=== PATIENT | female | born 1990 | race African-American/Black ===

== ENCOUNTER 2018-06-25 14:53 | Emergency (ER) | payer SELFPAY ==
--- OUTSIDE RECORDS SUMMARY | 2018-06-25 15:14 | XMS REPORT ---
:1990 [facility] Address [address] [place]. [address] [place] [id number] Care Team Providers Name Role Phone Unavailable Unavailable Unavailable Problems This patient has no known problems. Allergies, Adverse Reactions, Alerts This patient has no known allergies or adverse reactions. Medications This patient has no known medications.
[2018-06-25 16:47] LABS: Urine Bacteria <20 /HPF (<20); Urine RBC <5 /HPF (NONE SEEN)
[2018-06-25 16:48] LABS: Urine Culture Reflex Order NOT NEEDED; Urine Mucus 1+ /HPF (NONE SEEN)
[2018-06-25 17:02] LABS: Absolute Monocytes 0.5 K/uL (0.1-1.3); Absolute Neutrophil 3.5 K/uL (1.8-8.0); Basophils % 0.3 % (0-1.3); Eosinophils % 0.9 % (0-4.4); Hematocrit 37.5 % (36.0-45.0); Lymphocytes % 33.2 % (15.3-44.8); MPV 7.9 fL (7.6-11.3); Monocytes % 7.6 % (3.3-12.3)
[2018-06-25 17:23] LABS: Urine Blood TRACE (NEG); Urine Glucose NEGATIVE (NEG); Urine Protein 1+ (NEG); Urine Specific Gravity 1.025 (1.005-1.030)
[2018-06-25 17:34] LABS: BUN Blood Urea Nitrogen 9 mg/dL (7-18); Bicarbonate 24 mmol/L (21-32); Glucose Level 90 mg/dL (74-106); HCG, Quantitative 60419 mIU/mL (1-3); Potassium 3.3 mmol/L (3.5-5.1); Sodium Level 135 mmol/L (136-145)
--- NOTE | 2018-06-25 17:39 | ER ---
Nurse's Notes [facility] Name: Stanislaw Varner Age: 28 yrs Sex: Female : 1990 Arrival Date: 06/25/2018 Time: 14:57 Bed 26 Private MD: HAYES EAST Diagnosis: state;Nausea and vomiting;Diarrhea, unspecified Presentation: 06/25 15:13 Presenting complaint: Patient states: since yesterday i am having stomach pains, tw2 headache, i feel nauseated, it comes and goes , +n/v/d, i am having some bleeding but i shouldn't be on my period. Transition of care: patient was not received from another setting of care. Onset of symptoms was June 25, 2018. Risk Assessment: Do you want to hurt yourself or someone else? Patient reports no desire to harm self or others. Initial Sepsis Screen: Does the patient meet any 2 criteria? No. Patient's initial sepsis screen is negative. Does the patient have a suspected source of infection? No. Patient's initial sepsis screen is negative. Care prior to arrival: None. 15:13 Method Of Arrival: Ambulatory tw2 15:13 Acuity: MITCH 3 tw2 Triage Assessment: 15:15 General: Appears ill, Behavior is calm, cooperative, appropriate for age. Pain: tw2 Complains of pain in abdomen. GI: Reports lower abdominal pain, upper abdominal pain, diarrhea, nausea, vomiting. 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 - Social history:: Smoking status: . - Ebola Screening: : Patient negative for fever greater than or equal to 101.5 degrees Fahrenheit, and additional compatible Ebola Virus Disease symptoms. Screenin:38 Abuse screen: Denies threats or abuse. Denies injuries from another. Nutritional rv screening: No deficits noted. Tuberculosis screening: No symptoms or risk factors identified. Fall Risk None identified. Assessment: 15:37 General: Appears in no apparent distress. uncomfortable, Behavior is calm, cooperative. rv Pain: Complains of pain in abdomen. Neuro: Level of Consciousness is awake, alert, obeys commands, Oriented to person, place, time, situation. Cardiovascular: Capillary refill < 3 seconds. Respiratory: Airway is patent. GI: Bowel sounds present X 4 quads. Abd is soft and non tender X 4 quads. : No signs and/or symptoms were reported regarding the genitourinary system. EENT: No signs and/or symptoms were reported regarding the EENT system. Derm: Skin is intact. Musculoskeletal: No signs and/or symptoms reported regarding the musculoskeletal system. Vital Signs: 15:16 BP 123 / 76; Pulse 91; Resp 17; Temp 97.5(TE); Pulse Ox 100% on R/A; Weight 89.81 kg tw2 (R); Height 4 ft. 11 in. (149.86 cm) (R); Pain 8/10; 17:44 BP 114 / 62 RA Supine; Pulse 74; Resp 17 S; Pulse Ox 100% on R/A; rv 18:16 BP 105 / 70 RA; Pulse 76; Resp 16 S; Pulse Ox 100% on R/A; rv 15:16 Body Mass Index 39.99 (89.81 kg, 149.86 cm) tw2 ED Course: 14:57 Patient arrived in ED. mr 14:58 HAYES EAST is Private Physician. mr 15:14 Triage completed. tw2 15:15 Arm band placed on. tw2 15:28 Jose Juan Santillan, RN is Primary Nurse. rv 15:38 Patient has correct armband on for positive identification. Bed in low position. Call rv light in reach. Side rails up X 1. Pulse ox on. NIBP on. 15:45 Ashley Haywood FNP-C is PHCP. snw 15:45 Salvador Tran MD is Attending Physician. snw 16:10 No provider procedures requiring assistance completed. Inserted saline lock: 22 gauge rv in left forearm, using aseptic technique. Blood collected. 16:52 US Transvaginal Ob In Process Unspecified. EDMS 17:46 IV discontinued, intact, bleeding controlled, No redness/swelling at site. Pressure rv dressing applied. Administered Medications: No medications were administered Outcome: 17:39 Discharge ordered by . snw 17:46 Discharged to home ambulatory. rv 17:46 Condition: good 17:46 Discharge instructions given to patient, Instructed on discharge instructions, follow up and referral plans. Demonstrated understanding of instructions, follow-up care. 18:17 Patient left the ED. rv Signatures: Dispatcher [employer] EDMS Ashley Haywood, CPAO-C SECURITY MANAGER-Csnw Pam Micehlle mr Rayna Scruggs, RN RN tw2 Jose Juan Santillan RN RN rv
--- NOTE | 2018-06-25 17:39 | EDPHYS ---
Physician Documentation [facility] Name: Stanislaw Varner Age: 28 yrs Sex: Female : 1990 Arrival Date: 06/25/2018 Time: 14:57 Bed 26 Private MD: HAYES EAST ED Physician Salvador Tran HPI: 06/25 17:02 This 28 yrs old Black Female presents to ER via Ambulatory with complaints of Abdominal snw Pain, Back Pain, Nausea, Diarrhea. 17:02 The patient presents with abdominal pain that is diffuse. Onset: The symptoms/episode snw began/occurred suddenly, 3 day(s) ago. The symptoms do not radiate. Associated signs and symptoms: Pertinent positives: nausea and vomiting, diarrhea. The symptoms are described as crampy. Severity of pain: At its worst the pain was very mild. It is unknown whether or not the patient has had similar symptoms in the past. It is unknown whether or not the patient has recently seen a physician. pt with 8mo old child at home (preformer impregnated fabrics is Dr. Glover). Pt notified of and plan of care.. 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 - Social history:: Smoking status: . - Ebola Screening: : Patient negative for fever greater than or equal to 101.5 degrees Fahrenheit, and additional compatible Ebola Virus Disease symptoms. ROS: 17:01 Constitutional: Negative for fever, chills, and weight loss, Eyes: Negative for injury, snw pain, redness, and discharge, ENT: Negative for injury, pain, and discharge, Neck: Negative for injury, pain, and swelling, Cardiovascular: Negative for chest pain, palpitations, and edema, Respiratory: Negative for shortness of breath, cough, wheezing, and pleuritic chest pain, : Negative for injury, bleeding, discharge, and swelling, MS/Extremity: Negative for injury and deformity, Skin: Negative for injury, rash, and discoloration, Neuro: Negative for headache, weakness, numbness, tingling, and seizure. 17:01 Abdomen/GI: Positive for nausea, vomiting, and diarrhea. 17:01 Back: Positive for pain at rest, of the low back area. Exam: 17:01 Constitutional: This is a well developed, well nourished patient who is awake, alert, snw and in no acute distress. Head/Face: Normocephalic, atraumatic. Eyes: Pupils equal round and reactive to light, extra-ocular motions intact. Lids and lashes normal. Conjunctiva and sclera are non-icteric and not injected. Cornea within normal limits. Periorbital areas with no swelling, redness, or edema. ENT: Nares patent. No nasal discharge, no septal abnormalities noted. Tympanic membranes are normal and external auditory canals are clear. Oropharynx with no redness, swelling, or masses, exudates, or evidence of obstruction, uvula midline. Mucous membranes moist. Neck: Trachea midline, no thyromegaly or masses palpated, and no cervical lymphadenopathy. Supple, full range of motion without nuchal rigidity, or vertebral point tenderness. No Meningismus. Chest/axilla: Normal chest wall appearance and motion. Nontender with no deformity. No lesions are appreciated. Cardiovascular: Regular rate and rhythm with a normal S1 and S2. No gallops, murmurs, or rubs. Normal PMI, no JVD. No pulse deficits. Respiratory: Lungs have equal breath sounds bilaterally, clear to auscultation and percussion. No rales, rhonchi or wheezes noted. No increased work of breathing, no retractions or nasal flaring. 17:01 Back: No spinal tenderness. No costovertebral tenderness. Full range of motion. Skin: Warm, dry with normal turgor. Normal color with no rashes, no lesions, and no evidence of cellulitis. MS/ Extremity: Pulses equal, no cyanosis. Neurovascular intact. Full, normal range of motion. Neuro: Awake and alert, GCS 15, oriented to person, place, time, and situation. Cranial nerves II-XII grossly intact. Motor strength 5/5 in all extremities. Sensory grossly intact. Cerebellar exam normal. Normal gait. 17:01 Abdomen/GI: Inspection: abdomen appears normal, Bowel sounds: normal, Palpation: abdomen is soft and non-tender. Vital Signs: 15:16 BP 123 / 76; Pulse 91; Resp 17; Temp 97.5(TE); Pulse Ox 100% on R/A; Weight 89.81 kg tw2 (R); Height 4 ft. 11 in. (149.86 cm) (R); Pain 8/10; 17:44 BP 114 / 62 RA Supine; Pulse 74; Resp 17 S; Pulse Ox 100% on R/A; rv 18:16 BP 105 / 70 RA; Pulse 76; Resp 16 S; Pulse Ox 100% on R/A; rv 15:16 Body Mass Index 39.99 (89.81 kg, 149.86 cm) tw2 MDM: 15:49 Patient medically screened. snw 17:39 Data reviewed: vital signs, nurses notes. Data interpreted: Pulse oximetry: on room air snw is 100 %. Interpretation: normal. Counseling: I had a detailed discussion with the patient and/or guardian regarding: the historical points, exam findings, and any diagnostic results supporting the discharge/admit diagnosis, lab results, radiology results, the need for outpatient follow up, to return to the emergency department if symptoms worsen or persist or if there are any questions or concerns that arise at home. Special discussion: Based on the patient's Hx, exam, and Dx evaluation, there is no indication for emergent surgery or inpatient Tx. It is understood by the patient/guardian that if the Sx's persist or worsen they need to return immediately for re-evaluation. Based on the history and exam findings, there is no indication for further emergent testing or inpatient evaluation. I discussed with the patient/guardian the need to see the OB Gyne specialist for further evaluation of the symptoms. 06/25 15:46 Order name: Urine Culture [facility] 06/25 15:46 Order name: Urine Microscopic Only; Complete Time: 16:51 snw 06/25 16:12 Order name: Quantitative Hcg; Complete Time: 17:34 snw 06/25 16:12 Order name: Abo/rh Typing; Complete Time: 17:25 snw 06/25 16:12 Order name: Basic Metabolic Panel; Complete Time: 17:34 snw 06/25 16:12 Order name: CBC with Diff; Complete Time: 17:13 snw 06/25 15:46 Order name: Urine Test (obtain specimen); Complete Time: 15:55 snw 06/25 15:46 Order name: Urine Dipstick-Ancillary (obtain specimen); Complete Time: 15:55 snw 06/25 16:12 Order name: IV Saline Lock; Complete Time: 16:46 snw 06/25 16:12 Order name: Labs collected and sent; Complete Time: 16:46 snw 06/25 16:12 Order name: NPO; Complete Time: 16:14 snw 06/25 16:13 Order name: US Transvaginal Ob snw 06/25 16:31 Order name: Urine Dipstick--Ancillary (enter results); Complete Time: 17:25 bd 06/25 16:31 Order name: Urine --Ancillary (enter results); Complete Time: 17:25 bd Administered Medications: No medications were administered Disposition: 06/26 06:45 Co-signature as Attending Physician, Salvador Tran MD I agree with the assessment and kdr plan of care. Disposition: 06/25/18 17:39 Discharged to Home. Impression: state, Nausea and vomiting, Diarrhea, unspecified. - Condition is Stable. - Discharge Instructions: Food Choices to Help Relieve Diarrhea, Adult, Diarrhea, Adult, Nausea and Vomiting, Adult, First Trimester of , Rehydration, Adult. - Work release form, Medication Reconciliation Form, Thank You Letter, Antibiotic Education, Prescription Opioid Use form. - Follow up: Private Physician; When: 1 week; Reason: Recheck today's complaints, Continuance of care, Re-evaluation by your physician. Follow up: Emergency Department; When: As needed; Reason: Worsening of condition. Signatures: Dispatcher [facility] Salvador Tran MD MD [facility] Ashley Haywood, PATTERNMAKER PLASTICS-C PATTERNMAKER PLASTICS-Csnw Rayna Scruggs, RN RN tw2 Jose Juan Santillan, RN RN rv Corrections: (The following items were deleted from the chart) 06/25 16:17 16:13 Transvaginal Ob+US.RAD.BRZ ordered. [facility] 18:17 17:39 06/25/2018 17:39 Discharged to Home. Impression: state; Nausea and rv vomiting; Diarrhea, unspecified. Condition is Stable. Forms are Medication Reconciliation Form, Thank You Letter, Antibiotic Education, Prescription Opioid Use. Follow up: Private Physician; When: 1 week; Reason: Recheck today's complaints, Continuance of care, Re-evaluation by your physician. Follow up: Emergency Department; When: As needed; Reason: Worsening of condition. snw
[2018-06-25 18:28] VITALS: TEMP 97.5; O2SAT 100
[2018-06-25 18:31] VITALS: BP 105/70
--- NOTE | 2018-06-25 18:58 | RAD REPORT ---
EXAM DESCRIPTION: US - Transvaginal OB - 06/25/2018 4:53 pm CLINICAL HISTORY: Abdominal pain, abdominal cramping, COMPARISON: None. FINDINGS: Normal shaped intrauterine gestational sac is identified. Yolk sac and pole are iden tifiable. Cardiac activity seen at a rate of 161 BPM. [place]-rump length corresponds to 7 week 1 day a ge. Calculated WILLIE is 02/10/2019. No uterine abnormality seen. Small subchorionic hemorrhage is present not regarded as significant at this small size. A 2.2 centimeter right ovarian cyst is present. No suspicious bilateral ovarian or adnexal finding. N o blood or fluid in the cul de sac. IMPRESSION: Single 7 week 1 day IUP. WILLIE is 02/10/2019. Heart rate is 161 BPM.
== END 2018-06-25 18:17 | disposition home or self-care (01) ==
LOC: ER 14:53
DX: O21.9 Vomiting of pregnancy, unspecified (principal); O26.891 Other specified pregnancy related conditions, first trimester; R19.7 Diarrhea, unspecified; Z3A.01 Less than 8 weeks gestation of pregnancy
CPT/HCPCS: 36415; 76817; 80048; 81003; 81015; 81025; 84702; 85025; 86900; 86901; 87086; 87088; 99284

== ENCOUNTER 2018-12-11 16:22 | Emergency (ER) | payer SELFPAY ==
--- NOTE | 2018-12-11 17:42 | ER ---
Nurse's Notes [facility] Name: Stanislaw Varner Age: 28 yrs Sex: Female : 1990 Arrival Date: 12/11/2018 Time: 16:23 Bed External Waiting Private MD: Diagnosis: Encounter for screening, unspecified Presentation: 12/11 16:41 Presenting complaint: Patient states: left lower toothache X 1 week, left jaw swelling iw today. Transition of care: patient was not received from another setting of care. Onset of symptoms was December 04, 2018. Risk Assessment: Do you want to hurt yourself or someone else? Patient reports no desire to harm self or others. Initial Sepsis Screen: Does the patient meet any 2 criteria? No. Patient's initial sepsis screen is negative. Does the patient have a suspected source of infection? No. Patient's initial sepsis screen is negative. Care prior to arrival: None. 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 - Social history:: Smoking status: Patient/guardian denies using tobacco. - Ebola Screening: : Patient negative for fever greater than or equal to 101.5 degrees Fahrenheit, and additional compatible Ebola Virus Disease symptoms Patient denies exposure to infectious person Patient denies travel to an Ebola-affected area in the 21 days before illness onset No symptoms or risks identified at this time. Screenin:45 Abuse screen: Denies threats or abuse. Denies injuries from another. Nutritional ph screening: No deficits noted. Tuberculosis screening: No symptoms or risk factors identified. Fall Risk None identified. Assessment: 16:45 General: Appears in no apparent distress. Behavior is calm, cooperative, appropriate ph for age. Pain: Complains of pain in mouth. Neuro: Level of Consciousness is awake, alert, obeys commands, Oriented to person, place, time, situation. Cardiovascular: Capillary refill < 3 seconds in bilateral fingers Patient's skin is warm and dry. Respiratory: Airway is patent Respiratory effort is even, unlabored, Respiratory pattern is regular, symmetrical. EENT: Derm: Skin is intact, Skin is pink, warm \T\ dry. Vital Signs: 16:43 BP 128 / 89; Pulse 88; Resp 16 S; Pulse Ox 100% on R/A; Pain 10/10; iw 16:43 Temp 97.7; ED Course: 16:23 Patient arrived in ED. as 16:35 Rohith Lion MD is Attending Physician. gs 16:36 Andressa Dorsey RN is Primary Nurse. ph 16:43 Triage completed. iw 16:43 Arm band placed on. iw 16:55 Patient has correct armband on for positive identification. Call light in reach. ph 18:30 No provider procedures requiring assistance completed. Patient did not have IV access ph during this emergency room visit. Administered Medications: No medications were administered Outcome: 17:41 Discharge ordered by . gs 18:33 Patient left the ED. ph 18:33 Medical screen evaluation completed per provider. Patient declined treatment. ph 18:33 Condition: good ph Signatures: Bautista Tapia, RN RN Linda Burns Irene, EMETERIO RN Andressa Dorsey RN RN Rohith Lion MD MD
--- NOTE | 2018-12-11 17:42 | EDPHYS ---
Physician Documentation [facility] Name: Stanislaw Varner Age: 28 yrs Sex: Female : 1990 Arrival Date: 12/11/2018 Time: 16:23 Bed External Waiting Private MD: ED Physician Rohith Lion HPI: 12/11 16:57 This 28 yrs old Black Female presents to ER via Ambulatory with complaints of Toothache.gs 17:39 The patient presents with bleeding, pain. The problem is located in the lower left gs second molar and lower left first molar. Onset: The symptoms/episode began/occurred 1 week(s) ago. Duration: The symptoms are continuous. Modifying factors: the symptoms are aggravated by chewing. Associated signs and symptoms: Pertinent negatives: swelling, mandibular. Severity of symptoms: At their worst the symptoms were moderate, in the emergency department the symptoms are unchanged. The patient has experienced similar episodes in the past, a few times. 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 - Social history:: Smoking status: Patient/guardian denies using tobacco. - Ebola Screening: : Patient negative for fever greater than or equal to 101.5 degrees Fahrenheit, and additional compatible Ebola Virus Disease symptoms Patient denies exposure to infectious person Patient denies travel to an Ebola-affected area in the 21 days before illness onset No symptoms or risks identified at this time. ROS: 17:39 All other systems are negative. gs Exam: 17:39 Head/Face: Normocephalic, atraumatic. Eyes: Pupils equal round and reactive to light, gs extra-ocular motions intact. Lids and lashes normal. Conjunctiva and sclera are non-icteric and not injected. Cornea within normal limits. Periorbital areas with no swelling, redness, or edema. Neck: Trachea midline, no thyromegaly or masses palpated, and no cervical lymphadenopathy. Supple, full range of motion without nuchal rigidity, or vertebral point tenderness. No Meningismus. Chest/axilla: Normal chest wall appearance and motion. Nontender with no deformity. No lesions are appreciated. Cardiovascular: Regular rate and rhythm with a normal S1 and S2. No gallops, murmurs, or rubs. Normal PMI, no JVD. No pulse deficits. Respiratory: Lungs have equal breath sounds bilaterally, clear to auscultation and percussion. No rales, rhonchi or wheezes noted. No increased work of breathing, no retractions or nasal flaring. Abdomen/GI: Soft, non-tender, with normal bowel sounds. No distension or tympany. No guarding or rebound. No evidence of tenderness throughout. Back: No spinal tenderness. No costovertebral tenderness. Full range of motion. Skin: Warm, dry with normal turgor. Normal color with no rashes, no lesions, and no evidence of cellulitis. MS/ Extremity: Pulses equal, no cyanosis. Neurovascular intact. Full, normal range of motion. Neuro: Awake and alert, GCS 15, oriented to person, place, time, and situation. Cranial nerves II-XII grossly intact. Motor strength 5/5 in all extremities. Sensory grossly intact. Cerebellar exam normal. Normal gait. 17:39 Constitutional: The patient appears alert, awake. 17:39 ENT: Dental exam: dental caries, that is moderate, specifically in the lower left second molar (#18) and lower left first molar (#19), pain. Vital Signs: 16:43 BP 128 / 89; Pulse 88; Resp 16 S; Pulse Ox 100% on R/A; Pain 10/10; iw 16:43 Temp 97.7; sg MDM: 17:04 Patient medically screened. 17:39 Differential diagnosis: dental caries, gingivitis, dental abscess. Data reviewed: vital gs signs, nurses notes. ED course: NO EVIDENCE OF ABSCESS. Administered Medications: No medications were administered Disposition: 12/11/18 17:41 Discharged to Home. Impression: Encounter for screening, unspecified. - Condition is Stable. - Medication Reconciliation Form, Thank You Letter, Antibiotic Education, Prescription Opioid Use form. - Follow up: Private Physician; When: 1 - 2 days; Reason: Re-evaluation by your physician. Signatures: Andreia Jensen RN RN iw Andressa Dorsey RN RN ph LionRohith MD MD Corrections: (The following items were deleted from the chart) 18:33 17:41 12/11/2018 17:41 Discharged to Home. Impression: Encounter for screening, ph unspecified. Condition is Stable. Forms are Medication Reconciliation Form, Thank You Letter, Antibiotic Education, Prescription Opioid Use. Follow up: Private Physician; When: 1 - 2 days; Reason: Re-evaluation by your physician. gs
[2018-12-11 19:23] VITALS: BP 128/89; TEMP 97.7; O2SAT 100
== END 2018-12-11 18:33 | disposition home or self-care (01) ==
LOC: ER 16:22
DX: K08.89 Other specified disorders of teeth and supporting structures (principal); Z13.9 Encounter for screening, unspecified
CPT/HCPCS: 99281

== ENCOUNTER 2019-01-27 20:01 | Emergency (ER) | payer SELFPAY ==
--- OUTSIDE RECORDS SUMMARY | 2019-01-27 20:03 | XMS REPORT ---
:1990 [facility] Address [address] [place] [address] Care Team Providers Name Role Phone Unavailable Unavailable Unavailable Problems This patient has no known problems. Allergies, Adverse Reactions, Alerts This patient has no known allergies or adverse reactions. Medications This patient has no known medications.
--- NOTE | 2019-01-27 21:55 | EDPHYS ---
Physician Documentation [facility] Name: Stanislaw Varner Age: 28 yrs Sex: Female : 1990 Arrival Date: 01/27/2019 Time: 20:07 Bed 25 Private MD: ED Physician Salvador Tran HPI: 01/27 22:19 This 28 yrs old Black Female presents to ER via Ambulatory with complaints of Back kdr Pain, Breathing Difficulty. 22:19 The patient presents with pain that is acute, with no known mechanism of injury. The kdr symptoms are located in the T5, T6 and T7. Onset: The symptoms/episode began/occurred acutely, yesterday. Location: Anterior chest wall - mid sternal. Associated signs and symptoms: The patient has no apparent associated signs or symptoms. 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 Modifying factors: The patient symptoms are alleviated by nothing, the patient symptoms are aggravated by any movement. Severity of symptoms: At their worst the symptoms were mild, just prior to arrival, in the emergency department the symptoms are unchanged. The patient has not experienced similar symptoms in the past. The patient has not recently seen a physician. 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 - Social history:: Smoking status: Patient uses tobacco products, denies chronic smoking, but will smoke occasionally. - Ebola Screening: : No symptoms or risks identified at this time. ROS: 22:19 Constitutional: Negative for fever, chills, and weight loss, Eyes: Negative for injury, kdr pain, redness, and discharge, Neck: Negative for injury, pain, and swelling, Cardiovascular: Negative for chest pain, palpitations, and edema, Respiratory: Negative for shortness of breath, cough, wheezing, and pleuritic chest pain, Abdomen/GI: Negative for abdominal pain, nausea, vomiting, diarrhea, and constipation, : Negative for injury, bleeding, discharge, and swelling, MS/Extremity: Negative for injury and deformity, Skin: Negative for injury, rash, and discoloration, Neuro: Negative for headache, weakness, numbness, tingling, and seizure activity. Psych: Negative for depression, anxiety, suicide ideation, homicidal ideation, and hallucinations, Allergy/Immunology: Negative for hives, rash, and allergies, Endocrine: Negative for neck swelling, polydipsia, polyuria, polyphagia, and marked weight changes, Hematologic/Lymphatic: Negative for swollen nodes, abnormal bleeding, and unusual bruising. 22:19 Back: Positive for pain with movement, of the thoracic area. Exam: 22:19 Constitutional: This is a well developed, well nourished patient who is awake, alert, kdr and in no acute distress. Head/Face: Normocephalic, atraumatic. Eyes: Pupils equal round and reactive to light, extra-ocular motions intact. Lids and lashes normal. Conjunctiva and sclera are non-icteric and not injected. Cornea within normal limits. Periorbital areas with no swelling, redness, or edema. Neck: Trachea midline, no thyromegaly or masses palpated, and no cervical lymphadenopathy. Supple, full range of motion without nuchal rigidity, or vertebral point tenderness. No Meningismus. Chest/axilla: Normal chest wall appearance and motion. Nontender with no deformity. No lesions are appreciated. Cardiovascular: Regular rate and rhythm with a normal S1 and S2. No gallops, murmurs, or rubs. Normal PMI, no JVD. No pulse deficits. Respiratory: Lungs have equal breath sounds bilaterally, clear to auscultation and percussion. No rales, rhonchi or wheezes noted. No increased work of breathing, no retractions or nasal flaring. Abdomen/GI: Soft, non-tender, with normal bowel sounds. No distension or tympany. No guarding or rebound. No evidence of tenderness throughout. Skin: Warm, dry with normal turgor. Normal color with no rashes, no lesions, and no evidence of cellulitis. MS/ Extremity: Pulses equal, no cyanosis. Neurovascular intact. Full, normal range of motion. Neuro: Awake and alert, GCS 15, oriented to person, place, time, and situation. Cranial nerves II-XII grossly intact. Motor strength 5/5 in all extremities. Sensory grossly intact. Cerebellar exam normal. Normal gait. Psych: Awake, alert, with orientation to person, place and time. Behavior, mood, and affect are within normal limits. 22:19 Back: pain, that is mild, of the thoracic area, ROM is painful, with all movement, normal spinal alignment noted, CVA tenderness, is absent, muscle spasm, is not present, T 7 - 9. Vital Signs: 20:44 BP 115 / 65; Pulse 91; Resp 16; Temp 97; Pulse Ox 100% ; rv 21:15 BP 114 / 50; Pulse 66; Resp 17 S; Pulse Ox 97% on R/A; cc3 22:00 BP 124 / 63; Pulse 82; Resp 17 S; Pulse Ox 100% on R/A; Pain 2/10; cc3 MDM: 21:54 Patient medically screened. kdr 22:19 Data reviewed: vital signs, nurses notes, lab test result(s), radiologic studies. kdr Counseling: I had a detailed discussion with the patient and/or guardian regarding: the historical points, exam findings, and any diagnostic results supporting the discharge/admit diagnosis, the need for outpatient follow up. Administered Medications: 22:00 Drug: Ibuprofen 800 mg Route: PO; mg2 22:03 Follow up: Response: No adverse reaction cc3 22:01 Drug: predniSONE 40 mg Route: PO; mg2 22:03 Follow up: Response: No adverse reaction cc3 22:02 Drug: traMADol 50 mg Route: PO; mg2 22:03 Follow up: Response: No adverse reaction; Pain is decreased; RASS: Alert and Calm (0) cc3 Disposition: 01/27/19 21:54 Discharged to Home. Impression: Pain in thoracic spine. - Condition is Stable. - Discharge Instructions: Back Pain, Adult, Musculoskeletal Pain, Thoracic Strain, [id number]. - Prescriptions for Ibuprofen 800 mg Oral Tablet - take 1 tablet by ORAL route every 8 hours As needed take with food; 15 tablet. Medrol (Davide) 4 mg Oral Tablets, Dose Pack - take 1 tablet by ORAL route as directed - follow package instructions; 1 packet. Pepcid 20 mg Oral Tablet - take 1 tablet by ORAL route once daily; 20 tablet. Tramadol 50 mg Oral Tablet - take 1 tablet by ORAL route every 8 hours as needed; 12 tablet. - Medication Reconciliation Form, Thank You Letter, Prescription Opioid Use, Work release form form. - Follow up: Private Physician; When: 2 - 3 days; Reason: If symptoms return, Further diagnostic work-up, Recheck today's complaints, Continuance of care, Re-evaluation by your physician. - Problem is new. - Symptoms are unchanged. Signatures: Salvador Tran MD MD kdr Missael Garcia RN RN mg2 Jose Juan Santillan RN RN rv Kellie Jay cc3 Corrections: (The following items were deleted from the chart) 22:08 21:54 01/27/2019 21:54 Discharged to Home. Impression: Pain in thoracic spine. cc3 Condition is Stable. Forms are Medication Reconciliation Form, Thank You Letter, Antibiotic Education, Prescription Opioid Use. Follow up: Private Physician; When: 2 - 3 days; Reason: If symptoms return, Further diagnostic work-up, Recheck today's complaints, Continuance of care, Re-evaluation by your physician. Problem is new. Symptoms are unchanged. kdr
--- NOTE | 2019-01-27 21:55 | ER ---
Nurse's Notes [facility] Name: Stanislaw Varner Age: 28 yrs Sex: Female : 1990 Arrival Date: 01/27/2019 Time: 20:07 Bed 25 Private MD: Diagnosis: Pain in thoracic spine Presentation: 01/27 20:41 Presenting complaint: Patient states: YESTERDAY STARTED HAVING BACK PAIN GOING TO THE CHEST. AND HAVE TROUBLE TAKING DEEP BREATHS. Transition of care: patient was not received from another setting of care. Onset of symptoms was January 26, 2019 at 08:00. Risk Assessment: Do you want to hurt yourself or someone else? Patient reports no desire to harm self or others. Initial Sepsis Screen: Does the patient meet any 2 criteria? No. Patient's initial sepsis screen is negative. Does the patient have a suspected source of infection? No. Patient's initial sepsis screen is negative. Care prior to arrival: None. 20:41 Method Of Arrival: Ambulatory 20:41 Acuity: MITCH 3 rv Triage Assessment: 21:00 General: Appears in no apparent distress. uncomfortable, Behavior is calm, cooperative, cc3 appropriate for age. Musculoskeletal: Circulation, motion, and sensation intact. Range of motion: intact in all extremities. 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 - Social history:: Smoking status: Patient uses tobacco products, denies chronic smoking, but will smoke occasionally. - Ebola Screening: : No symptoms or risks identified at this time. Screenin:00 Abuse screen: Denies threats or abuse. Denies injuries from another. Nutritional cc3 screening: No deficits noted. Tuberculosis screening: No symptoms or risk factors identified. Fall Risk Ambulatory Aid- None/Bed Rest/Nurse Assist (0 pts). Gait- Normal/Bed Rest/Wheelchair (0 pts) Mental Status- Oriented to own ability (0 pts). Assessment: 21:00 General: Appears in no apparent distress. comfortable, Behavior is calm, cooperative, cc3 appropriate for age. Pain: Complains of pain in thoracic area, back Quality of pain is described as aching, Pain began 1 day ago. Neuro: Level of Consciousness is awake, alert, obeys commands, Oriented to person, place, time, situation, Appropriate for age. Cardiovascular: Denies chest pain, Heart tones S1 S2 present Capillary refill < 3 seconds in bilateral fingers Patient's skin is warm and dry. Respiratory: Airway is patent Respiratory effort is even, unlabored, Respiratory pattern is regular, symmetrical, Breath sounds are clear bilaterally. GI: Abdomen is round non-distended, Bowel sounds present X 4 quads. Abd is soft and non tender X 4 quads. : No signs and/or symptoms were reported regarding the genitourinary system. EENT: No signs and/or symptoms were reported regarding the EENT system. Derm: Skin is intact, is healthy with good turgor, Skin is normal, black. Musculoskeletal: Circulation, motion, and sensation intact. Range of motion: intact in all extremities. 22:00 Reassessment: Patient appears in no apparent distress at this time. Patient and/or cc3 family updated on plan of care and expected duration. Pain level reassessed. Patient is alert, oriented x 3, equal unlabored respirations, skin warm/dry/pink. Dr. Tran discharged the patient home with prescriptions given. No IV cannula in situ. Patient left ER vitally stable and ambulatory. No valuables left in the patient's room. Patient states feeling better. Patient states symptoms have improved. Vital Signs: 20:44 BP 115 / 65; Pulse 91; Resp 16; Temp 97; Pulse Ox 100% ; rv 21:15 BP 114 / 50; Pulse 66; Resp 17 S; Pulse Ox 97% on R/A; cc3 22:00 BP 124 / 63; Pulse 82; Resp 17 S; Pulse Ox 100% on R/A; Pain 2/10; cc3 ED Course: 20:07 Patient arrived in ED. cf2 20:37 Salvador Tran MD is Attending Physician. kdr 20:44 Triage completed. rv 21:00 Patient has correct armband on for positive identification. Placed in gown. Bed in low cc3 position. Call light in reach. Side rails up X2. pvc monitor on. Pulse ox on. NIBP on. 21:00 Arm band placed on right wrist. Patient notified of wait time. cc3 21:04 Kellie Jay is Primary Nurse. cc3 22:00 No provider procedures requiring assistance completed. Patient did not have IV access cc3 during this emergency room visit. Administered Medications: 22:00 Drug: Ibuprofen 800 mg Route: PO; mg2 22:03 Follow up: Response: No adverse reaction cc3 22:01 Drug: predniSONE 40 mg Route: PO; mg2 22:03 Follow up: Response: No adverse reaction cc3 22:02 Drug: traMADol 50 mg Route: PO; mg2 22:03 Follow up: Response: No adverse reaction; Pain is decreased; RASS: Alert and Calm (0) cc3 Outcome: 21:54 Discharge ordered by . kdr 22:00 Discharged to home ambulatory. cc3 22:00 Condition: stable 22:00 Discharge instructions given to patient, Instructed on discharge instructions, follow up and referral plans. medication usage, Demonstrated understanding of instructions, follow-up care, medications, Prescriptions given X 4. 22:08 Patient left the ED. cc3 Signatures: Salvador Tran MD MD [facility] Missael Garcia, RN RN [facility] Jose Juan Santillan, RN RN rv Kellie Jay cc3 Maryanne Norwood cf2 Corrections: (The following items were deleted from the chart) 20:44 20:41 Acuity: MITCH 4 rv rv
[2019-01-27] MEDS ORDERED: predniSONE 20 MG TAB ONE (21:57)
[2019-01-27] MEDS ORDERED: IBUPROFEN 400 MG TAB ONE (21:57)
[2019-01-27] MEDS ORDERED: TRAMADOL HCL 50 MG TAB ONE (21:57)
[2019-01-27 22:29] VITALS: BP 115/65; TEMP 97; O2SAT 100
== END 2019-01-27 22:08 | disposition home or self-care (01) ==
LOC: ER 20:01
DX: M54.6 Pain in thoracic spine (principal); Z72.0 Tobacco use
CPT/HCPCS: 99284; J7512

== ENCOUNTER 2019-08-27 01:08 | Emergency (ER) | payer SELFPAY ==
--- OUTSIDE RECORDS SUMMARY | 2019-08-27 01:10 | XMS REPORT | Continuity of Care Document ---
:1990 Author Organization [facility] t Address [address] [place] [address] Care Team Providers Name Role Phone Unavailable Unavailable Unavailable Problems This patient has no known problems. Allergies, Adverse Reactions, Alerts This patient has no known allergies or adverse reactions. Medications This patient has no known medications. Procedures This patient has no known procedures. Results This patient has no known results.
[2019-08-27 01:48] LABS: Specific Gravity >= 1.030 (1.005-1.030); Urine Appearance CLEAR; Urine Bilirubin NEGATIVE (NEG); Urine Blood 1+ (NEG); Urine Color YELLOW; Urine Glucose NEGATIVE (NEG); Urine Protein NEGATIVE (NEG); Urine Specific Gravity >=1.030 (1.005-1.030)
[2019-08-27 01:56] LABS: Urine Bacteria <20 /HPF (<20); Urine Culture Reflex Order NOT NEEDED; Urine Mucus 1+ /HPF (NONE SEEN); Urine RBC <5 /HPF (NONE SEEN)
[2019-08-27 02:07] LABS: Absolute Lymphocytes (CBC) 3.6 K/uL (0.7-4.9); Basophils % 1.3 % (0-1.3); Hematocrit 35.8 % (36.0-45.0); Lymphocytes % 38.5 % (15.3-44.8); MPV 8.1 fL (7.6-11.3); RBC Red Blood Cell Count 4.68 M/uL (3.86-4.86)
[2019-08-27 02:11] LABS: Protime INR 0.93
--- NOTE | 2019-08-27 02:33 | ER ---
Nurse's Notes [facility] Name: Stanislaw Varner Age: 29 yrs Sex: Female : 1990 Arrival Date: 08/27/2019 Time: 01:13 Bed 13 Private MD: HAYES EAST Diagnosis: Abnormal uterine and vaginal bleeding, unspecified;Complete or unspecified spontaneous without complication Presentation: 08/26 01:20 Chief complaint: Patient states: I was seen in an ER in [facility] and told that I was sg having a miscarriage, but my second HCG levels were measured as zero, so they believe that I had finished with the miscarriage. 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 Coronavirus screen: Proceed with normal triage. Ebola Screen: Patient negative for fever greater than or equal to 101.5 degrees Fahrenheit, and additional compatible Ebola Virus Disease symptoms Patient denies exposure to infectious person. Patient denies travel to an Ebola-affected area in the 21 days before illness onset. No symptoms or risks identified at this time. Initial Sepsis Screen: Does the patient meet any 2 criteria? No. Patient's initial sepsis screen is negative. Does the patient have a suspected source of infection? No. Patient's initial sepsis screen is negative. Risk Assessment: Do you want to hurt yourself or someone else? Patient reports no desire to harm self or others. Onset of symptoms was August 27, 2019. Care prior to arrival: None. Transition of care: patient was not received from another setting of care. 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 - Social history:: Smoking status: Patient denies any tobacco usage or history of. - Family history:: not pertinent. - Hospitalizations: : No recent hospitalization is reported. Screenin:19 Abuse screen: Denies threats or abuse. Nutritional screening: No deficits noted. jd3 Tuberculosis screening: No symptoms or risk factors identified. Fall Risk Ambulatory Aid- None/Bed Rest/Nurse Assist (0 pts). Gait- Normal/Bed Rest/Wheelchair (0 pts) Mental Status- Oriented to own ability (0 pts). Total Hdez Fall Scale indicates No Risk (0-24 pts). Assessment: 02:17 General: Appears in no apparent distress. uncomfortable, Behavior is calm, cooperative, jd3 appropriate for age. Pain: Complains of pain in back Quality of pain is described as aching, shooting, tender. Neuro: Level of Consciousness is awake, alert, obeys commands, Oriented to person, place, time, situation. Cardiovascular: Denies chest pain, Capillary refill < 3 seconds Patient's skin is warm and dry. Respiratory: Airway is patent Respiratory effort is even, unlabored, Respiratory pattern is regular, symmetrical, Denies cough, shortness of breath. GI: Abdomen is round non-distended, Abd is soft and non tender X 4 quads. Reports lower abdominal pain. : Reports vaginal bleeding that is with clots, heavy flow. EENT: No signs and/or symptoms were reported regarding the EENT system. Derm: Skin is intact, Skin is dry, Skin is normal, Skin temperature is warm. Musculoskeletal: Circulation, motion, and sensation intact. Range of motion: intact in all extremities. 02:42 Reassessment: Patient appears in no apparent distress at this time. Patient and/or jd3 family updated on plan of care and expected duration. Pain level reassessed. Patient is alert, oriented x 3, equal unlabored respirations, skin warm/dry/pink. pt reported understanding of discharge instructions. Vital Signs: 01:20 BP 140 / 82; Pulse 67; Resp 18; Temp 97.2(TE); Pulse Ox 100% on R/A; sg 02:19 BP 127 / 69; Pulse 75; Resp 17 S; Pulse Ox 100% on R/A; jd3 ED Course: 01:13 Patient arrived in ED. es 01:13 HAYES EAST is Private Physician. es 01:18 Otoniel Horta MD is Attending Physician. rn 01:20 Adalberto Brooke RN is Primary Nurse. jd3 01:22 Triage completed. sg 01:22 Arm band placed on. sg 01:46 Missed attempt(s): 20 gauge in right antecubital area. Bleeding controlled, band aid vc applied, catheter tip intact. 01:50 Missed attempt(s): 22 gauge in left antecubital area. Bleeding controlled, band aid vc applied, catheter tip intact. 01:58 Warm blanket given. vc 02:19 Patient has correct armband on for positive identification. Bed in low position. Call jd3 light in reach. Side rails up X 1. Adult w/ patient. Pulse ox on. NIBP on. 02:39 US Transvaginal Ob In Process Unspecified. EDMS 02:42 No provider procedures requiring assistance completed. Patient did not have IV access jd3 during this emergency room visit. Administered Medications: No medications were administered Outcome: 02:33 Discharge ordered by . rn 02:43 Discharged to home ambulatory, with family. jd3 02:43 Condition: stable 02:43 Discharge instructions given to patient, family, Instructed on discharge instructions, follow up and referral plans. Demonstrated understanding of instructions, follow-up care. 02:44 Patient left the ED. jd3 Signatures: Dispatcher [employer] EDMS Bautista Tapia, RN RN Danna Triplett Roman, MD MD rn Davies, Jonathon, RN RN jGavi Atkinson RN RN vc Corrections: (The following items were deleted from the chart) 01:42 01:20 Chief complaint: Patient states: I was seen in an ER in [facility] and told that I sg was having a miscarriage, but my second HCG levels were not indicated so they believe that I had finished with the miscarriage. 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
--- NOTE | 2019-08-27 02:33 | EDPHYS ---
Physician Documentation [facility] Name: Stanislaw Varner Age: 29 yrs Sex: Female : 1990 Arrival Date: 08/27/2019 Time: 01:13 Bed 13 Private MD: [facility] ED Physician Otoniel Horta HPI: 08/26 01:28 This 29 yrs old Black Female presents to ER via Ambulatory with complaints of Back rn Pain, Abdominal Pain. 01:28 The patient presents with abdominal pain in the lower abdomen. Onset: The rn symptoms/episode began/occurred 2 week(s) ago. The symptoms do not radiate. Associated signs and symptoms: Pertinent positives: vaginal bleeding, Pertinent negatives: blood in stools, fever, vaginal discharge. The symptoms are described as crampy. Modifying factors: The symptoms are alleviated by nothing, the symptoms are aggravated by nothing. Severity of pain: At its worst the pain was mild in the emergency department the pain is unchanged. The patient has experienced similar episodes in the past. The patient has been recently seen by a physician:. Reports low back pain and lower abd cramping, + vaginal bleeding, reports seen 2 weeks ago and told was , seen 3 days later and told was having spontaneous , no u/s performed, still having lower abd cramping and intermittent vaginal bleeding. 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 No fever or vaginal discharge. . 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 - Social history:: Smoking status: Patient denies any tobacco usage or history of. - Family history:: not pertinent. - Hospitalizations: : No recent hospitalization is reported. ROS: 01:28 Constitutional: Negative for fever, chills, and weight loss, Eyes: Negative for injury, rn pain, redness, and discharge, Neck: Negative for injury, pain, and swelling, Cardiovascular: Negative for chest pain, palpitations, and edema, Respiratory: Negative for shortness of breath, cough, wheezing, and pleuritic chest pain, Abdomen/GI: + lower abd pain Back: + lower back pain : + vaginal bleeding MS/Extremity: Negative for injury and deformity, Neuro: Negative for headache, weakness, numbness, tingling, and seizure. Exam: 01:28 Constitutional: This is a well developed, well nourished patient who is awake, alert, rn and in no acute distress. Head/Face: Normocephalic, atraumatic. Cardiovascular: Regular rate and rhythm. No pulse deficits. Respiratory: Speaking full sentences. No increased work of breathing, no retractions or nasal flaring. Abdomen/GI: soft, mild suprapubic tenderness, no reobund Skin: Warm, dry with normal turgor. Normal color with no rashes, no lesions, and no evidence of cellulitis. MS/ Extremity: Pulses equal, no cyanosis. Neurovascular intact. Full, normal range of motion. Equal circumference. Neuro: Awake and alert, GCS 15, oriented to person, place, time, and situation. Vital Signs: 01:20 BP 140 / 82; Pulse 67; Resp 18; Temp 97.2(TE); Pulse Ox 100% on R/A; sg 02:19 BP 127 / 69; Pulse 75; Resp 17 S; Pulse Ox 100% on R/A; jd3 MDM: 01:18 Patient medically screened. rn 02:31 Differential diagnosis: Dysmenorrhea, Ectopic , non-specific abd pain, rn retained products, menstruation, completing . Data reviewed: vital signs, nurses notes, lab test result(s), radiologic studies, ultrasound, and as a result, I will discharge patient. Counseling: I had a detailed discussion with the patient and/or guardian regarding: the historical points, exam findings, and any diagnostic results supporting the discharge/admit diagnosis, lab results, radiology results, the need for outpatient follow up, to return to the emergency department if symptoms worsen or persist or if there are any questions or concerns that arise at home. Special discussion: I discussed with the patient/guardian in detail that at this point there is no indication for admission to the hospital. It is understood, however, that if the symptoms persist or worsen the patient needs to return immediately for re-evaluation. Based on the history and exam findings, there is no indication for further emergent testing or inpatient evaluation. I discussed with the patient/guardian the need to see the OB Gyne specialist for further evaluation of the symptoms. ED course: U/S neg for retained products/ectopic. Urine preg neg. Most likely completing for spont Ab if previously told was . Zheng bernard had sex since this began, so not a second . Will need to f/u with STABILIZER OPERATOR. 08/26 01:25 Order name: CBC with Diff; Complete Time: 02:20 08/26 01:25 Order name: Basic Metabolic Panel 08/26 01:25 Order name: Protime (+inr); Complete Time: 02:20 08/26 01:25 Order name: Ptt, Activated; Complete Time: 02:20 08/26 01:25 Order name: Urine Test (obtain specimen); Complete Time: :55 08/26 01:25 Order name: Urine Dipstick-Ancillary (obtain specimen); Complete Time: 01:55 08/26 01:25 Order name: US Transvaginal Ob 08/26 01:49 Order name: Test, Urine; Complete Time: 02:20 EDMA 08/26 01:49 Order name: Urinalysis W/Microscopic; Complete Time: 02:20 EDMA 08/26 02:05 Order name: HCG, Quantitative EDMS Administered Medications: No medications were administered Disposition: 08/27/19 02:33 Discharged to Home. Impression: Abnormal uterine and vaginal bleeding, unspecified, Complete or unspecified spontaneous without complication. - Condition is Stable. - Discharge Instructions: Abnormal Uterine Bleeding, Miscarriage, [id number]. - Medication Reconciliation Form, Thank You Letter, Antibiotic Education, Prescription Opioid Use, Work release form form. - Follow up: Private Physician; When: As needed; Reason: Recheck today's complaints, Re-evaluation by your physician. - Problem is new. - Symptoms have improved. Signatures: Dispatcher [employer] EDMS Bautista Tapia RN RN sg Nieto, Roman, MD MD rn Davies, Jonathon, RN RN jd3 Corrections: (The following items were deleted from the chart) 01:49 01:27 UA MICROSCOPIC+U.LAB.BRZ ordered. EDMS EDMS 02:04 01:28 QUANTITATIVE HCG+C.LAB.BRZ ordered. EDMA EDMS 02:33 02:33 08/27/2019 02:33 Discharged to Home. Impression: Abnormal uterine and vaginal rn bleeding, unspecified. Condition is Stable. Forms are Medication Reconciliation Form, Thank You Letter, Antibiotic Education, Prescription Opioid Use. Follow up: Private Physician; When: As needed; Reason: Recheck today's complaints, Re-evaluation by your physician. Problem is new. Symptoms have improved. rn 02:44 02:33 08/27/2019 02:33 Discharged to Home. Impression: Abnormal uterine and vaginal jd3 bleeding, unspecified; Complete or unspecified spontaneous without complication. Condition is Stable. Forms are Medication Reconciliation Form, Thank You Letter, Antibiotic Education, Prescription Opioid Use. Follow up: Private Physician; When: As needed; Reason: Recheck today's complaints, Re-evaluation by your physician. Problem is new. Symptoms have improved. rn
[2019-08-27 02:43] LABS: BUN Blood Urea Nitrogen 9 mg/dL (7-18); Bicarbonate 28 mmol/L (21-32); Glucose Level 116 mg/dL (74-106); Sodium Level 139 mmol/L (136-145)
[2019-08-27 02:46] LABS: HCG, Quantitative < 1 mIU/mL (1-3); Potassium 3.8 mmol/L (3.5-5.1)
[2019-08-27 03:14] VITALS: TEMP 97.2; O2SAT 100
[2019-08-27 03:15] VITALS: BP 127/69
--- NOTE | 2019-08-27 07:18 | RAD REPORT ---
EXAM DESCRIPTION: US - Transvaginal OB - 08/27/2019 2:39 am CLINICAL HISTORY: rule out ectopic/retained products, recent miscarriage, pelvic pain COMPARISON: Transvaginal OB dated 06/25/2018 FINDINGS: Endovaginal sonography was performed and traits in 18 millimeter right ovarian cyst. No ri ght ovarian or right adnexal significant finding. No left ovary or left adnexal abnormality seen. Dop pler evaluation shows normal blood flow in the ovaries. Uterus is 8.3 x 3.4 x 4.2 cm. This normal sized uterus shows no myometrial mass. Endometrial stripe i s 10 mm. Hypoechoic material is present in the endometrial cavity believed to be hemorrhagic debris. No retained products of conception identified. IMPRESSION: Small amount of hemorrhagic debris seen in the endometrial cavity. No retained products of conception identified. No significant or suspicious ovarian or adnexal findings.
== END 2019-08-27 02:44 | disposition home or self-care (01) ==
LOC: ER 01:08
DX: O03.9 Complete or unspecified spontaneous abortion without complication (principal)
CPT/HCPCS: 36415; 76817; 80048; 81001; 81025; 84702; 85025; 85610; 85730; 99283

== ENCOUNTER 2019-09-17 01:47 | Emergency (ER) | payer SELFPAY ==
--- OUTSIDE RECORDS SUMMARY | 2019-09-17 01:49 | XMS REPORT | Continuity of Care Document ---
:1990 Author Organization [facility] t Address [facility] [place] [address] Care Team Providers Name Role Phone Unavailable Unavailable Unavailable Problems This patient has no known problems. Allergies, Adverse Reactions, Alerts This patient has no known allergies or adverse reactions. Medications This patient has no known medications. Procedures This patient has no known procedures. Results This patient has no known results.
--- NOTE | 2019-09-17 02:25 | EDPHYS ---
Physician Documentation [facility] Name: Stanislaw Varner Age: 29 yrs Sex: Female : 1990 Arrival Date: 09/17/2019 Time: 01:50 Bed 7 Private MD: JENNIFER Physician Donald Duckworth HPI: 09/16 02:14 This 29 yrs old Black Female presents to ER via Ambulatory with complaints of Ankle jimmy Injury. 02:14 The patient presents with decreased range of motion, pain, swelling, tenderness. The jimmy complaints affect the left ankle. Onset: The symptoms/episode began/occurred last night. Context: resulted from the patient stepping on The mechanism of injury involved inversion of the affected ankle. The patient can partially bear weight on the affected extremity. Associated signs and symptoms: The patient has no apparent associated signs or symptoms. Modifying factors: The symptoms are alleviated by elevation of extremity, ice packs, the symptoms are aggravated by weight bearing, movement. Severity of symptoms: At their worst the symptoms were mild, moderate, in the emergency department the symptoms are unchanged. The patient has not experienced similar symptoms in the past. Historical: - Allergies: 01:51 No Known Allergies; sg - PMHx: 01:51 Back pain; sg - PSHx: 01:51 ; sg - Immunization history:: Adult Immunizations up to date. - Social history:: Smoking status: Patient denies any tobacco usage or history of. - Family history:: not pertinent. ROS: 02:14 Constitutional: Negative for fever, chills, and weight loss, Eyes: Negative for injury, jimmy pain, redness, and discharge, ENT: Negative for injury, pain, and discharge, Neck: Negative for injury, pain, and swelling, Cardiovascular: Negative for chest pain, palpitations, and edema, Respiratory: Negative for shortness of breath, cough, wheezing, and pleuritic chest pain, Abdomen/GI: Negative for abdominal pain, nausea, vomiting, diarrhea, and constipation, Back: Negative for injury and pain, : Negative for injury, bleeding, discharge, and swelling, Skin: Negative for injury, rash, and discoloration, Neuro: Negative for headache, weakness, numbness, tingling, and seizure, Psych: Negative for depression, anxiety, suicide ideation, homicidal ideation, and hallucinations, Allergy/Immunology: Negative for hives, rash, and allergies, Endocrine: Negative for neck swelling, polydipsia, polyuria, polyphagia, and marked weight changes, Hematologic/Lymphatic: Negative for swollen nodes, abnormal bleeding, and unusual bruising. 02:14 MS/extremity: Positive for decreased range of motion, pain, swelling, tenderness, of the left lateral ankle. Exam: 02:14 Constitutional: This is a well developed, well nourished patient who is awake, alert, jimmy and in no acute distress. Head/Face: Normocephalic, atraumatic. Eyes: Pupils equal round and reactive to light, extra-ocular motions intact. Lids and lashes normal. Conjunctiva and sclera are non-icteric and not injected. Cornea within normal limits. Periorbital areas with no swelling, redness, or edema. ENT: Nares patent. No nasal discharge, no septal abnormalities noted. Tympanic membranes are normal and external auditory canals are clear. Oropharynx with no redness, swelling, or masses, exudates, or evidence of obstruction, uvula midline. Mucous membranes moist. Neck: Trachea midline, no thyromegaly or masses palpated, and no cervical lymphadenopathy. Supple, full range of motion without nuchal rigidity, or vertebral point tenderness. No Meningismus. Chest/axilla: Normal chest wall appearance and motion. Nontender with no deformity. No lesions are appreciated. Cardiovascular: Regular rate and rhythm with a normal S1 and S2. No gallops, murmurs, or rubs. Normal PMI, no JVD. No pulse deficits. Respiratory: Lungs have equal breath sounds bilaterally, clear to auscultation and percussion. No rales, rhonchi or wheezes noted. No increased work of breathing, no retractions or nasal flaring. Abdomen/GI: Soft, non-tender, with normal bowel sounds. No distension or tympany. No guarding or rebound. No evidence of tenderness throughout. Back: No spinal tenderness. No costovertebral tenderness. Full range of motion. Skin: Warm, dry with normal turgor. Normal color with no rashes, no lesions, and no evidence of cellulitis. Neuro: Awake and alert, GCS 15, oriented to person, place, time, and situation. Cranial nerves II-XII grossly intact. Motor strength 5/5 in all extremities. Sensory grossly intact. Cerebellar exam normal. Normal gait. Psych: Awake, alert, with orientation to person, place and time. Behavior, mood, and affect are within normal limits. 02:14 Musculoskeletal/extremity: ROM: limited active range of motion due to pain, limited passive range of motion due to pain, Pulses: are normal with no appreciated deficits, Sensation intact. Compartment Syndrome exam of affected extremity: is normal. Joints: the left ankle displays pain at rest, painful range of motion, swelling, tenderness, DVT Exam: negative Homans' sign noted on exam, no appreciated bluish discoloration, no erythema, no increased warmth, pain, swelling, tenderness. Vital Signs: 02:04 BP 125 / 64; Pulse 90; Resp 18; Temp 98.6; Pulse Ox 100% ; Height 4 ft. 11 in. (149.86 ea cm); Pain 8/10; Procedures: 02:14 Splinting: using walking boot. jimmy MDM: 01:53 Patient medically screened. [facility] 02:17 Data reviewed: vital signs, nurses notes, lab test result(s), radiologic studies, plain jimmy films. 02:23 Differential diagnosis: fracture, sprain, arthritis. Data interpreted: dye range operator: jimmy not applicable for this patient encounter. rate is 90 beats/min, rhythm is regular, Pulse oximetry: is not applicable for this patient encounter. on room air is 100 %. Test interpretation: by ED physician or midlevel provider: plain radiologic studies. Counseling: I had a detailed discussion with the patient and/or guardian regarding: the historical points, exam findings, and any diagnostic results supporting the discharge/admit diagnosis, lab results, radiology results, the need for outpatient follow up, for definitive care, a orthopedic surgeon. Medication response: ibuprofen administration has improved the patient's pain. ED course: walking boot, follow up dr lux. 09/16 02:06 Order name: XRAY Ankle LEFT 3 view ea 07 02:14 Order name: Urine Dipstick-Ancillary (obtain specimen); Complete Time: 02:34 jimmy 09/16 02:14 Order name: Urine Test (obtain specimen); Complete Time: 02:34 jimmy 09/16 02:14 Order name: Ice pack; Complete Time: 02:17 jimmy 09/16 02:14 Order name: Walking boot; Complete Time: 03:02 jimmy Administered Medications: 02:34 Drug: Motrin 600 mg Route: PO; mg2 03:02 Follow up: Response: No adverse reaction ea Disposition: 09/17/19 02:24 Discharged to Home. Impression: Sprain of ankle, Sprain of calcaneofibular ligament of left ankle. - Condition is Stable. - Discharge Instructions: Ankle Sprain, Ankle Sprain, [id number]. - Prescriptions for Ibuprofen 600 mg Oral Tablet - take 1 tablet by ORAL route every 6 hours As needed take with food; 26 tablet. Tylenol- Codeine #3 300-30 mg Oral Tablet - take 2 tablets by ORAL route every 6 hours As needed; 24 tablet. - Medication Reconciliation Form, Thank You Letter, Antibiotic Education, Prescription Opioid Use, Work release form, Family Work Release form. - Follow up: Private Physician; When: 2 - 3 days; Reason: Recheck today's complaints, Continuance of care, Re-evaluation by your physician. Follow up: Dr. Edy Lux; When: 2 - 3 days; Reason: Recheck today's complaints, Continuance of care, Re-evaluation by your physician. - Problem is new. - Symptoms have improved. Signatures: Dispatcher [employer] EDMS Bautista Tapia RN RN sg Anderson, Corey, MD MD cha Gardose, Michele, RN RN mg2 Antunez, Elena RN ea Corrections: (The following items were deleted from the chart) 03:04 02:24 09/17/2019 02:24 Discharged to Home. Impression: Sprain of ankle; Sprain of sg calcaneofibular ligament of left ankle. Condition is Stable. Discharge Instructions: Ankle Sprain, Ankle Sprain, [id number]. Prescriptions for Ibuprofen 600 mg Oral Tablet - take 1 tablet by ORAL route every 6 hours As needed take with food; 26 tablet, Tylenol-Codeine #3 300-30 mg Oral Tablet - take 2 tablets by ORAL route every 6 hours As needed; 24 tablet. and Forms are Medication Reconciliation Form, Thank You Letter, Antibiotic Education, Prescription Opioid Use. Follow up: Private Physician; When: 2 - 3 days; Reason: Recheck today's complaints, Continuance of care, Re-evaluation by your physician. Follow up: Dr. Edy Lux; When: 2 - 3 days; Reason: Recheck today's complaints, Continuance of care, Re-evaluation by your physician. Problem is new. Symptoms have improved. jimmy
--- NOTE | 2019-09-17 02:25 | ER ---
Nurse's Notes [facility] Name: Stanislaw Varner Age: 29 yrs Sex: Female : 1990 Arrival Date: 09/17/2019 Time: 01:50 Bed 7 Private MD: Diagnosis: Sprain of ankle;Sprain of calcaneofibular ligament of left ankle Presentation: 09/16 01:52 Acuity: MITCH 4 sg 01:52 Chief complaint: Patient states: I was moving a dresser down some stairs when it became sg unbalanced and fell onto my ankle. Now I cant really bear any weight on it, it hurts pretty bad to walk on, and my left ankle and left leg are just hurting really bad. Coronavirus screen: Proceed with normal triage. Ebola Screen: Patient negative for fever greater than or equal to 101.5 degrees Fahrenheit, and additional compatible Ebola Virus Disease symptoms Patient denies exposure to infectious person. Patient denies travel to an Ebola-affected area in the 21 days before illness onset. No symptoms or risks identified at this time. Initial Sepsis Screen: Does the patient meet any 2 criteria? No. Patient's initial sepsis screen is negative. Does the patient have a suspected source of infection? No. Patient's initial sepsis screen is negative. Risk Assessment: Do you want to hurt yourself or someone else? Patient reports no desire to harm self or others. Onset of symptoms was September 17, 2019. Care prior to arrival: None. Transition of care: patient was not received from another setting of care. 01:52 Method Of Arrival: Ambulatory sg Historical: - Allergies: 01:51 No Known Allergies; sg - PMHx: 01:51 Back pain; sg - PSHx: 01:51 ; sg - Immunization history:: Adult Immunizations up to date. - Social history:: Smoking status: Patient denies any tobacco usage or history of. - Family history:: not pertinent. Screenin:04 Abuse screen: Denies threats or abuse. Nutritional screening: No deficits noted. ea Tuberculosis screening: No symptoms or risk factors identified. Fall Risk Fall in past 12 months (25 points). Assessment: 02:03 General: Appears uncomfortable, Behavior is calm, cooperative, appropriate for age. ea Pain: Complains of pain in left lateral ankle. Neuro: Level of Consciousness is awake, alert, obeys commands, Oriented to person, place, time, situation. Respiratory: Airway is patent Respiratory effort is even, unlabored, Respiratory pattern is regular, symmetrical. Musculoskeletal: Swelling present in left lateral ankle. 03:02 Reassessment: Patient and/or family updated on plan of care and expected duration. Pain ea level reassessed. Patient is alert, oriented x 3, equal unlabored respirations, skin warm/dry/pink. Discharge instruction given to patient verbalized the understanding of instruction. Pt left ED via wheelchair assisted by ED staff. Vital Signs: 02:04 BP 125 / 64; Pulse 90; Resp 18; Temp 98.6; Pulse Ox 100% ; Height 4 ft. 11 in. (149.86 ea cm); Pain 8/10; ED Course: 01:50 Patient arrived in ED. bp1 01:51 Arm band placed on. sg 01:52 Triage completed. sg 01:53 Donald Duckworth MD is Attending Physician. jimmy 02:03 Lucrecia Diaz RN is Primary Nurse. ea 02:04 Patient has correct armband on for positive identification. Bed in low position. Call ea light in reach. Side rails up X2. 02:24 Edy De Leon MD is Referral Physician. jimmy 02:27 XRAY Ankle LEFT 3 view In Process Unspecified. EDMS 02:35 No provider procedures requiring assistance completed. Patient did not have IV access mg2 during this emergency room visit. Administered Medications: 02:34 Drug: Motrin 600 mg Route: PO; mg2 03:02 Follow up: Response: No adverse reaction ea Outcome: 02:24 Discharge ordered by . jimmy 03:00 Discharged to home via wheelchair. ea 03:00 Condition: stable 03:00 Discharge instructions given to patient, Instructed on discharge instructions, follow up and referral plans. medication usage, Demonstrated understanding of instructions, follow-up care, medications. 03:04 Patient left the ED. sg Signatures: Dispatcher [employer] EDMS Bautista Tapia RN RN sg Anderson, Corey, MD MD cha Antunez, Elena, RN RN ea Gardose, Michele, RN RN mg2 Paniauga, Brittany bp1
[2019-09-17] MEDS ORDERED: IBUPROFEN 200 MG TAB PO ONE (02:33)
[2019-09-17] MEDS ORDERED: IBUPROFEN 400 MG TAB ONE (02:33)
[2019-09-17 03:12] VITALS: BP 125/64; TEMP 98.6; O2SAT 100
--- NOTE | 2019-09-17 08:27 | RAD REPORT ---
EXAM DESCRIPTION: RAD - Ankle Left 3 View - 09/17/2019 2:27 am CLINICAL HISTORY: PAIN, fall and twisting injury COMPARISON: No comparisons FINDINGS: No fracture, dislocation or periosteal reaction. No joint effusion seen. No joint space na rrowing. No soft tissue abnormality. IMPRESSION: Negative left ankle for fracture or other acute finding.
== END 2019-09-17 03:04 | disposition home or self-care (01) ==
LOC: ER 01:47
DX: S93.402A Sprain of unspecified ligament of left ankle, initial encounter (principal); S93.412A Sprain of calcaneofibular ligament of left ankle, initial encounter; W20.8XXA Other cause of strike by thrown, projected or falling object, initial encounter; Y93.89 Activity, other specified; Y92.9 Unspecified place or not applicable
CPT/HCPCS: 99283

== ENCOUNTER 2020-04-20 08:28 | Emergency (ER) | payer SELFPAY ==
--- OUTSIDE RECORDS SUMMARY | 2020-04-20 08:41 | XMS REPORT | Summary of Care ---
:1990 Author Organization [facility] Address [address] [place] [id number] Care Team Providers Name Role Phone Sujatha Álvraez Primary Care Provider Reason for Visit Reason Comments DEPO PROVERA Encounter Details Date Type Department Care Team Description [facility] [address] [facility] [place] [address] Encounter for [place] Visit, [facility] Nurse Depo-Provera [address] [facility] [address] [place] [address] Allergies No Known Allergiesdocumented as of this encounter (statuses as of 03/16/2020) Medications Hospital, Clinic, or Other Ordered Dose Route Frequency Start Date End Date Status Facility Administered Medication medroxyPROGESTERone 150 mg IM [id number] 12/23/2019 1 Active (DEPO-PROVERA) injection 150 mgIndications: Encounter for initial prescription of injectable contraceptive documented as of this encounter (statuses as of 03/16/2020) Active Problems Problem Noted Date Encounter for initial prescription of injectable contr aceptive 12/23/2019 Screening examination for STD (sexually transmitted di sease) 12/23/2019 BMI 45.0-49.9, adult 12/23/2019 Status post repeat low transverse section Single liveborn, born in hospital, delivered by ruben an delivery 10/03/2017 39 weeks gestation of 09/30/2017 Previous delivery, antepartum condition or co mplication 09/30/2017 Nausea & vomiting 05/16/2012 Headache 05/16/2012 Overview: ICD10 Diagnosis 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 Supervision of other high-risk 05/13/2012 Overview: ICD10 Diagnosis 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 Smoker 05/13/2012 Class 2 obesity with body mass index (BMI) of 36.0 to 36.9 in adult, 05/13/2012 unspecified obesity type, unspecified whether serious comorbidity present documented as of this encounter (statuses as of 03/16/2020) Immunizations Name Administration Dates Next Due Hep B, Adol or Pedi Dosage 05/27/1998, 04/28/1998 Influenza Virus Vaccine 03/22/2012 PPD (TB) 04/25/2012 Rubella 05/16/2010 Td 03/18/2005 documented as of this encounter Social History Tobacco Use Types Packs/Day Years Used Date Current Some Day Smoker Cigars Star michell: 2011 Smokeless Tobacco: Never Used Comments: 1-2 ciggs a week Alcohol Use Drinks/Week oz/Week Comments No Sex Assigned at Date Recorded Not on file COVID-19 Exposure Response Date Recorded In the last month, have you been in contact with No / Unsure 03/16/2020 3:24 PM WHARFINGER CHIEF someone who was confirmed or suspected to have Coronavirus / COVID-19? documented as of this encounter Last Filed Vital Signs Vital Sign Reading Time Taken Comments Blood Pressure 122/66 03/16/2020 3:24 PM WHARFINGER CHIEF Pulse 69 03/16/2020 3:24 PM WHARFINGER CHIEF Temperature 36.3 C (97.3 F) 03/16/2020 3:24 PM WHARFINGER CHIEF Respiratory Rate 16 03/16/2020 3:24 PM WHARFINGER CHIEF Oxygen Saturation - - Inhaled Oxygen Concentration - - Weight 103.1 kg (227 lb 4.8 oz) 03/16/2020 3:24 PM WHARFINGER CHIEF Height 149.9 cm (4' 11") 03/16/2020 3:24 PM WHARFINGER CHIEF Body Mass Index 45.91 03/16/2020 3:24 PM WHARFINGER CHIEF documented in this encounter Patient Instructions Patient InstructionsKarol Orozco MA - 03/16/2020 3:00 PM WHARFINGER CHIEF Patient Education Medroxyprogesterone injection [Contraceptive] Brand Names: Depo-Provera, Depo-subQ Provera 104 What is this medicine? MEDROXYPROGESTERONE (me DROX ee proe SONIYA te inge) contraceptive injections prevent . They provide effective control for 3 months. Depo-subQ Provera 104 is also used for treating pain related to endometriosis. How should I use this medicine? Depo-Provera Contraceptive injection is given into a muscle. Depo-subQ Provera 104 injection is given under the skin. These injections are given by a health customer care associate. You must not be before getting an injection. The injection is usually given during the first 5 days after the start of a menstrual period or 6 weeks after delivery of a baby. Talk to your outpatient scheduler regarding the use of this medicine in children. Special care may be needed. These injections have been used in female children who have started having menstrual periods. What side effects may I notice from receiving this medicine? Side effects that you should report to your doctor or health customer care associate as soon as possible: allergic reactions like skin rash, itching or hives, swelling of the face, lips, or tongue breast tenderness or discharge breathing problems changes in vision depression feeling faint or lightheaded, falls fever pain in the abdomen, chest, groin, or leg problems with balance, talking, walking unusually weak or tired yellowing of the eyes or skin Side effects that usually do not require medical attention (report to your doctor or health customer care associate if they continue or are bothersome): acne fluid retention and swelling headache irregular periods, spotting, or absent periods temporary pain, itching, or skin reaction at site where injected weight gain What may interact with this medicine? Do not take this medicine with any of the following medications: bosentan This medicine may also interact with the following medications: aminoglutethimide antibiotics or medicines for infections, especially rifampin, rifabutin, rifapentine, and griseofulvin aprepitant barbiturate medicines such as phenobarbital or primidone bexarotene carbamazepine medicines for seizures like ethotoin, felbamate, oxcarbazepine, phenytoin, topiramate modafinil Nanette's wort What if I miss a dose? Try not to miss a dose. You must get an injection once every 3 months to maintain control. If you cannot keep an appointment, call and reschedule it. If you wait longer than 13 weeks between Depo-Provera contraceptive injections or longer than 14 weeks between Depo-subQ Provera 104 injections, you could get . Use another method for control if you miss your appointment. You may also need a test before receiving another injection. Where should I keep my medicine? This does not apply. The injection will be given to you by a health customer care associate. What should I tell my health care provider before I take this medicine? They need to know if you have any of these conditions: frequently drink alcohol asthma blood vessel disease or a history of a blood clot in the lungs or legs bone disease such as osteoporosis breast cancer diabetes eating disorder (anorexia nervosa or bulimia) high blood pressure HIV infection or AIDS kidney disease liver disease mental depression migraine seizures (convulsions) stroke tobacco smoker vaginal bleeding an unusual or allergic reaction to medroxyprogesterone, other hormones, medicines, foods, dyes, or preservatives or trying to get breast-feeding What should I watch for while using this medicine? This drug does not protect you against HIV infection (AIDS) or other sexually transmitted diseases. Use of this product may cause you to lose calcium from your bones. Loss of calcium may cause weak bones (osteoporosis). Only use this product for more than 2 years if other forms of control are not right for you. The longer you use this product for control the more likely you will be at risk for weak bones. Ask your health customer care associate how you can keep strong bones. You may have a change in bleeding pattern or irregular periods. Many females stop having periods while taking this drug. If you have received your injections on time, your chance of being is very low. If you think you may be , see your health customer care associate as soon as possible. Tell your health customer care associate if you want to get within the next year. The effect of this medicine may last a long time after you get your last injection. NOTE:This sheet is a summary. It may not cover all possible information. If you have questions aboutthis medicine, talk to your doctor, pharmacist, or health care provider. Copyright 2018 [employer] FINGER CHIEF documented in this encounter Progress Notes Joaquín Bustos, EMETERIO - 03/16/2020 3:00 PM CST30 year old female has been identified by name. Verbal consent has been obtained by patient to havean injection of Depo Provera, as ordered by the provider. Date of last Depo Provera injection: 12/23/2019 Last WWE: 12/23/2019 Encounter Diagnosis: v25.49 The site was cleaned with an alcohol swab and given intramuscularly (IM) in the right gluteus. A band aid dressing was then applied to the injection site. The patient tolerated the procedure well . Advised patient on Calcium intake 500-1200 mg daily. ED warnings given. Patient to return to clinic in 12 weeks for next Depo. Patient verbalized understanding. JOAQUÍN BUSTOS RN 03/16/2020 3:38 PM FINGER CHIEF documented in this encounter Plan of Treatment Date Type Specialty Care Team Description 06/08/2020 Nurse Visit [facility] Visit, [facility] Nurse Health Maintenance Due Date Last Done Comments VARICELLA VACCINES (1 of 2 - 2-dose childhood series) 1992 PNEUMOCOCCAL 0-64 YEARS COMBINED SERIES (1 of 1 - 1997 PPSV23) DTaP,Tdap,and Td Vaccines (2 - Tdap) 2002 03/18/2005 Depression Screening 2003 PAP SMEAR 05/15/2015 05/15/2012 INFLUENZA VACCINE (#1) 2019 03/22/2012 documented as of this encounter Results Not on filedocumented in this encounter Visit Diagnoses Diagnosis Encounter for Depo-Provera contraception - Primary Surveillance of other previously prescri bed contraceptive method documented in this encounter Administered Medications Medication Order MAR Action Action Date Dose Rate Site medroxyPROGESTERone Given 03/16/2020 3:36 150 mg Right (DEPO-PROVERA) injection 150 PM WHARFINGER CHIEF Dorsogluteal-IM mg 150 mg, Intramuscular, [id number], 4 doses, First dose on Sat12/23/19 at 1615, Last dose on Sat08/31/20 at 1615, Routine Given 12/23/2019 4:17 PM CDT 150 mg Left Upper Quad. Gluteus documented in this encounter Insurance Payer Benefit Plan Subscriber ID Effective Phone Address Typ e / Group Dates [facility] [id number] 2019-Pres [phone] Medicaid WOMEN ent [address] [place] [address] documented as of this encounter Advance Directives Name Relationship Healthcare Agent Relationship Co mmunication Graciela Telly Mother Health Care Agent Blayne Foleysanford Relative Second Alternate Health Care [phone] Agent (Mobile)
--- OUTSIDE RECORDS SUMMARY | 2020-04-20 08:41 | XMS REPORT | Continuity of Care Document ---
:1990 Author Organization [facility] t Address [address] [place] [address] Care Team Providers Name Role Phone Visit, Nurse Attending Clinician Unavailable Adry Gonzalez Attending Clinician Problems This patient has no known problems. Allergies, Adverse Reactions, Alerts This patient has no known allergies or adverse reactions. Medications This patient has no known medications. Procedures This patient has no known procedures. 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
--- NOTE | 2020-04-20 10:20 | RAD REPORT ---
EXAM DESCRIPTION: RAD - Chest Pa And Lat (2 Views) - 04/20/2020 10:00 am CLINICAL HISTORY: COUGH. Chest pain. COMPARISON: CHEST PA AND LAT 2 VIEW dated 05/15/2014; CHEST SINGLE VIEW dated 06/18/2013 FINDINGS: The lungs are clear. The heart is normal in size. No displaced fractures. IMPRESSION: No acute or concerning finding suspected.
--- NOTE | 2020-04-20 11:09 | ER ---
Nurse's Notes [facility] Name: Stanislaw Varner Age: 30 yrs Sex: Female : 1990 Arrival Date: 04/20/2020 Time: 08:28 Bed 23 Private MD: Diagnosis: Acute bronchitis Presentation: 04/20 08:36 Chief complaint: Patient states: sore throat, dyspnea started Saturday. Was tested for sv COVID on Saturday and was negative. Coronavirus screen: Client denies travel out of the [place] in the last 14 days. The client reports previous COVID testing was negative. Ebola Screen: No symptoms or risks identified at this time. Risk Assessment: Do you want to hurt yourself or someone else? Patient reports no desire to harm self or others. Onset of symptoms was April 16, 2020. 08:36 Method Of Arrival: Ambulatory sv 08:36 Acuity: MITCH 4 sv 08:37 Initial Sepsis Screen: Does the patient meet any 2 criteria? No. Patient's initial sv sepsis screen is negative. Does the patient have a suspected source of infection? No. Patient's initial sepsis screen is negative. Triage Assessment: 08:39 General: Appears in no apparent distress. comfortable, Behavior is calm, cooperative, sv appropriate for age. Pain: Denies pain. EENT: Reports pain in throat when swallowing. Neuro: Level of Consciousness is awake, alert, obeys commands, Oriented to person, place, time, situation, Gait is steady. Respiratory: Reports cough that is productive, Respiratory effort is even, unlabored, Respiratory pattern is regular, symmetrical. MANA[facility]: 11:48 LMP N/A - control method ll1 Historical: - Allergies: 08:37 No Known Drug Allergies; sv - PMHx: 08:37 Back pain; sv - PSHx: 08:37 ; sv - Immunization history:: Adult Immunizations up to date. - Social history:: Smoking status: Patient denies any tobacco usage or history of. Screenin:05 Abuse screen: Denies threats or abuse. Nutritional screening: No deficits noted. ll1 Tuberculosis screening: No symptoms or risk factors identified. Fall Risk Total Hdez Fall Scale indicates No Risk (0-24 pts). Assessment: 08:54 Reassessment: Received VO from Dr Tran for xray. sv 10:00 Reassessment: No changes from previously documented assessment. Patient and/or family ll1 updated on plan of care and expected duration. Pain level reassessed. 11:00 Reassessment: No changes from previously documented assessment. Patient and/or family ll1 updated on plan of care and expected duration. Pain level reassessed. Patient is alert, oriented x 3, equal unlabored respirations, skin warm/dry/pink. Respiratory: Airway is patent Trachea midline Respiratory effort is even, unlabored, Respiratory pattern is regular, symmetrical. 11:46 Neuro: No deficits noted. Cardiovascular: No deficits noted. Respiratory: Reports cough ll1 that is Airway is patent Breath sounds are clear bilaterally. Onset: The symptoms/episode began/occurred 5 days, the patient has mild shortness of breath. 11:48 EENT: Throat is clear. ll1 Vital Signs: 08:37 BP 134 / 89; Pulse 85; Resp 16; Temp 98.7(TE); Pulse Ox 100% on R/A; Weight 102.97 kg; sv Height 4 ft. 11 in. (149.86 cm); 11:45 BP 127 / 60; Pulse 80; Resp 17; Pulse Ox 100% ; ll1 08:37 Body Mass Index 45.85 (102.97 kg, 149.86 cm) sv ED Course: 08:28 Patient arrived in ED. ds1 08:36 Arm band placed on. sv 08:37 Triage completed. sv 09:47 Mo Hagan PA is PHCP. jmm 09:47 Salvador Tran MD is Attending Physician. jmm 10:00 Chest Pa And Lat (2 Views) XRAY In Process Unspecified. EDMS 10:02 Jorge Crain, EMETERIO is Primary Nurse. ll1 10:05 Patient placed in an exam room, on a stretcher. ll1 10:05 Patient has correct armband on for positive identification. Placed in gown. Bed in low ll1 position. Call light in reach. Side rails up X 1. Cardiac monitoring not applicable on this patient. 11:47 No provider procedures requiring assistance completed. Patient did not have IV access ll1 during this emergency room visit. Administered Medications: 11:20 Drug: Decadron 10 mg Route: IM; Site: right gluteus; ll1 11:46 Follow up: Response: No adverse reaction; RASS: Alert and Calm (0) ll1 Outcome: 11:09 Discharge ordered by . renetta 11:47 Discharged to home ambulatory. 1 11:47 Condition: stable 11:47 Discharge instructions given to patient, Instructed on discharge instructions, follow up and referral plans. medication usage, Demonstrated understanding of instructions, follow-up care, medications, Prescriptions given X 2. 11:48 Patient left the ED. 1 Signatures: Dispatcher [employer] Kaya Patel, EMETERIO RN Mo Osborne PA PA jmm Sanford, Demi ds1 Jorge Crain RN RN ll1 Corrections: (The following items were deleted from the chart) 08:39 08:37 Pulse 85bpm; Resp 16bpm; Pulse Ox 100% RA; Temp 98.7F Temporal; 102.97 kg; Height sv 4 ft. 11 in.; BMI: 45.8; sv
--- NOTE | 2020-04-20 11:10 | EDPHYS ---
Physician Documentation [facility] Name: Stanislaw Varner Age: 30 yrs Sex: Female : 1990 Arrival Date: 04/20/2020 Time: 08:28 Bed 23 Private MD: ED Physician Salvador Tran HPI: 04/20 10:21 This 30 yrs old Black Female presents to ER via Ambulatory with complaints of Cough, jmm Sore Throat. 10:21 Onset: The symptoms/episode began/occurred gradually, 4 day(s) ago. Modifying factors: jmm The symptoms are alleviated by nothing, the symptoms are aggravated by nothing. Associated signs and symptoms: Pertinent positives: sore throat. This is a 30 year old female with no known chronic medical conditions that presents to the ED with complaints of cough, wheezing, sore throat beginning this past weekend. Patient states she tested negative for covid 19. . 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 - Social history:: Smoking status: Patient denies any tobacco usage or history of. ROS: 10:21 Cardiovascular: Negative for chest pain, palpitations, and edema, Neuro: Negative for jmm headache, weakness, numbness, tingling, and seizure. 10:21 Constitutional: Positive for body aches, fatigue. 10:21 Respiratory: Positive for cough, wheezing. 10:21 All other systems are negative. Exam: 10:21 Constitutional: This is a well developed, well nourished patient who is awake, alert, jmm and in no acute distress. Head/Face: atraumatic. Eyes: EOMI, no conjunctival erythema appreciated ENT: Moist Mucus Membranes Neck: Trachea midline, Supple Chest/axilla: Normal chest wall appearance and motion. 10:21 Abdomen/GI: Non distended, soft Back: Normal ROM Skin: General appearance color normal 10:21 MS/ Extremity: Moves all extremities, no obvious deformities appreciated, no edema noted to the lower extremities Neuro: Awake and alert, normal gait Psych: Behavior is normal, Mood is normal, Patient is cooperative and pleasant 10:21 Cardiovascular: Rate: normal, Rhythm: regular, Pulses: no pulse deficits are appreciated. 10:21 Respiratory: Breath sounds: 10:21 Respiratory: the patient does not display signs of respiratory distress, Respirations: normal, Breath sounds: wheezing: that is mild, is heard in the right posterior upper lobe. Vital Signs: 08:37 BP 134 / 89; Pulse 85; Resp 16; Temp 98.7(TE); Pulse Ox 100% on R/A; Weight 102.97 kg; sv Height 4 ft. 11 in. (149.86 cm); 11:45 BP 127 / 60; Pulse 80; Resp 17; Pulse Ox 100% ; ll1 08:37 Body Mass Index 45.85 (102.97 kg, 149.86 cm) sv MDM: 10:21 Patient medically screened. [facility] 11:08 Data reviewed: vital signs, nurses notes. Counseling: I had a detailed discussion with renetta the patient and/or guardian regarding: the historical points, exam findings, and any diagnostic results supporting the discharge/admit diagnosis, radiology results, the need for outpatient follow up, to return to the emergency department if symptoms worsen or persist or if there are any questions or concerns that arise at home. ED course: Patient is alert and non toxic in appearance in the ED. No signs of resp distress. Patient is advised to follow up with pcp and otherwise given strict return precautions. Patient understood and agrees with the plan of care. . 02 08:53 Order name: Chest Pa And Lat (2 Views) XRAY; Complete Time: 10:22 sv Administered Medications: 11:20 Drug: Decadron 10 mg Route: IM; Site: right gluteus; ll1 11:46 Follow up: Response: No adverse reaction; RASS: Alert and Calm (0) ll1 Disposition: 15:08 Co-signature as Attending Physician, Salvador Tran MD I agree with the assessment and kdr plan of care. Disposition: 04/20/20 11:09 Discharged to Home. Impression: Acute bronchitis. - Condition is Stable. - Discharge Instructions: Acute Bronchitis, Adult. - Prescriptions for Prednisone 20 mg Oral Tablet - take 3 tablet by ORAL route once daily for 5 days; 15 tablet. Albuterol Sulfate 90 mcg/actuation - inhale 1-2 puff by INHALATION route every 4-6 hours; 1 Inhaler. - Work release form, Medication Reconciliation Form, Thank You Letter, Antibiotic Education, Prescription Opioid Use form. - Follow up: Private Physician; When: 2 - 3 days; Reason: Recheck today's complaints, Continuance of care, Re-evaluation by your physician. Signatures: Dispatcher [employer] EDKaya Bowman, EMETERIO RN Salvador Quick MD MD kdr Mickail, Joel, PA PA jmm Lewis, Lynsay, RN RN ll1 Corrections: (The following items were deleted from the chart) 11:48 11:09 04/20/2020 11:09 Discharged to Home. Impression: Acute bronchitis. Condition is ll1 Stable. Forms are Medication Reconciliation Form, Thank You Letter, Antibiotic Education, Prescription Opioid Use. Follow up: Private Physician; When: 2 - 3 days; Reason: Recheck today's complaints, Continuance of care, Re-evaluation by your physician. renetta
[2020-04-20] MEDS ORDERED: dexAMETHasone 10 MG/ML VIAL ONE (11:27)
[2020-04-20 12:00] VITALS: TEMP 98.7; O2SAT 100
[2020-04-20 12:01] VITALS: BP 127/60
== END 2020-04-20 11:48 | disposition home or self-care (01) ==
LOC: ER 08:28
DX: J20.9 Acute bronchitis, unspecified (principal)
CPT/HCPCS: 71046; 96372; 99283; J1100

== ENCOUNTER 2020-11-23 08:11 | Emergency (ER) | payer SELFPAY ==
[2020-11-23] MEDS ORDERED: MAGNES/ALUMIN/SIMET 30ML UCUP ONE (08:49)
[2020-11-23] MEDS ORDERED: IBUPROFEN 400 MG TAB ONE (08:50)
[2020-11-23] MEDS ORDERED: LIDOCAINE VISCOUS 2% SOLN 15 ML UDC ONE (08:50)
--- NOTE | 2020-11-23 09:25 | ER ---
Nurse's Notes [facility] Name: Stanislaw Varner Age: 30 yrs Sex: Female : 1990 Arrival Date: 11/23/2020 Time: 08:13 Bed Waiting Private MD: Diagnosis: Acute pharyngitis, unspecified Presentation: 11/23 08:19 Chief complaint: Patient states: i have nausea, body aches and my right ear hurts. i tw2 had covid last month. my throat is the main thing that brought me in. I laid down and took some medicine and it didn't help. Coronavirus screen: headache, muscle pain, nausea, Client presents with at least one sign or symptom that may indicate coronavirus-19. Standard/surgical mask placed on the client. Ebola Screen: Patient denies travel to an Ebola-affected area in the 21 days before illness onset. 08:19 Method Of Arrival: Ambulatory tw2 08:30 Initial Sepsis Screen: Does the patient meet any 2 criteria? No. Patient's initial tw2 sepsis screen is negative. Does the patient have a suspected source of infection? No. Patient's initial sepsis screen is negative. Risk Assessment: Do you want to hurt yourself or someone else? Patient reports no desire to harm self or others. Note provider CAPO Porter in triage at this time performing assessment. Onset of symptoms was November 23, 2020. 08:30 Acuity: MITCH 4 tw2 Triage Assessment: 08:30 General: Appears in no apparent distress. uncomfortable, obese, Behavior is calm, tw2 cooperative, appropriate for age. Pain: Complains of pain in uvula, left aspect of posterior pharynx and right aspect of posterior pharynx. EENT: Throat is reddened Reports pain when swallowing. Neuro: Level of Consciousness is awake, alert, obeys commands, Oriented to person, place, time, situation. Neuro: Reports headache. Respiratory: Airway is patent Respiratory effort is even, unlabored, Respiratory pattern is regular, symmetrical, Denies cough, shortness of breath. Musculoskeletal: No signs and/or symptoms reported regarding the musculoskeletal system. Range of motion: intact in all extremities. 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 - Social history:: Smoking status: . Screenin:40 Abuse screen: Denies threats or abuse. Nutritional screening: No deficits noted. tw2 Tuberculosis screening: No symptoms or risk factors identified. Fall Risk None identified. Assessment: 08:42 Respiratory: Airway is patent Respiratory effort is even, unlabored, Respiratory tw2 pattern is regular, symmetrical, n/a. 09:25 Reassessment: Patient appears in no apparent distress at this time. No changes from tw2 previously documented assessment. Patient and/or family updated on plan of care and expected duration. Pain level reassessed. Patient is alert, oriented x 3, equal unlabored respirations, skin warm/dry/pink. Vital Signs: 08:30 BP 142 / 100; Pulse 99; Resp 18; Temp 100(TE); Pulse Ox 99% on R/A; tw2 09:24 BP 128 / 65; Pulse 96; Resp 17; Pulse Ox 98% on R/A; tw2 ED Course: 08:13 Patient arrived in ED. as 08:18 Clarita Rose FNP-C [facility]. kb 08:18 Jaci Delgado MD is Attending Physician. kb 08:19 Arm band placed on. tw2 08:30 Rayna Scruggs, RN is Primary Nurse. tw2 08:30 Strep Sent. tw2 08:32 Triage completed. tw2 08:32 [facility] at [facility] time. pending strep swab results. swab sent to lab. tw2 08:42 No provider procedures requiring assistance completed. tw2 09:28 Patient did not have IV access during this emergency room visit. tw2 Administered Medications: 08:30 Drug: Ibuprofen 800 mg Route: PO; tw2 09:28 Follow up: Response: No adverse reaction tw2 08:30 Drug: GI Cocktail without - (Maalox Suspension 30 ml, Lidocaine Liquid 2 % 15 tw2 ml) Route: PO; 09:28 Follow up: Response: No adverse reaction tw2 Outcome: : Discharge ordered by . michele 09:28 Discharged to home ambulatory. tw2 09:28 Condition: stable 09:28 Discharge instructions given to patient, Instructed on discharge instructions, follow up and referral plans. Demonstrated understanding of instructions, follow-up care. :28 Patient left the ED. tw2 Signatures: Clarita Rose FNP-C FNP-Linda Leon Tara, RN RN tw2 Corrections: (The following items were deleted from the chart) 08:42 08:30 Note provider CAPO Porter in triage at this time. tw2 tw2
--- NOTE | 2020-11-23 09:25 | EDPHYS ---
Physician Documentation [facility] Name: Stanislaw Varner Age: 30 yrs Sex: Female : 1990 Arrival Date: 11/23/2020 Time: 08:13 Bed Waiting Private MD: ED Physician Jaci Delgado HPI: 11/23 09:20 This 30 yrs old Black Female presents to ER via Ambulatory with complaints of Sore kb Throat, Ear Pain, Nausea, Headache. 09:20 The patient presents with sore throat. The patient describes throat pain as constant. kb Onset: The symptoms/episode began/occurred yesterday. Severity of symptoms: At their worst the symptoms were moderate, in the emergency department the symptoms are unchanged. Modifying factors: The symptoms are alleviated by nothing, the symptoms are aggravated by swallowing, Patient's oral intake status: good. Associated signs and symptoms: Pertinent positives: earache. The patient has not experienced similar symptoms in the past. The patient has not recently seen a physician. Pt reports sore throat, right ear pain and bodyaches that started yesterday. 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 - Social history:: Smoking status: . ROS: 09:20 Respiratory: Negative for shortness of breath, cough, wheezing, and pleuritic chest kb pain. 09:20 Constitutional: Positive for body aches. 09:20 ENT: Positive for ear pain, sore throat. 09:20 Abdomen/GI: Positive for nausea. 09:20 All other systems are negative. Exam: 09:21 Constitutional: This is a well developed, well nourished patient who is awake, alert, kb and in no acute distress. Head/Face: Normocephalic, atraumatic. Cardiovascular: Regular rate and rhythm with a normal S1 and S2. No gallops, murmurs, or rubs. No pulse deficits. Respiratory: Respirations even and unlabored. No increased work of breathing, no retractions or nasal flaring. Skin: Warm, dry with normal turgor. Normal color. MS/ Extremity: Pulses equal, no cyanosis. Neurovascular intact. Full, normal range of motion. Neuro: Awake and alert, GCS 15, oriented to person, place, time, and situation. Moves all extremities. Normal gait. Psych: Awake, alert, with orientation to person, place and time. Behavior, mood, and affect are within normal limits. 09:21 ENT: External ear(s): are unremarkable, Ear canal(s): are normal, TM's: are normal, Nose: is normal, Mouth: is normal, Posterior pharynx: Airway: normal, no evidence of obstruction, Tonsils: with erythema, Uvula: normal, midline, swelling, that is mild, erythema, that is moderate. Vital Signs: 08:30 BP 142 / 100; Pulse 99; Resp 18; Temp 100(TE); Pulse Ox 99% on R/A; tw2 09:24 BP 128 / 65; Pulse 96; Resp 17; Pulse Ox 98% on R/A; tw2 MDM: 08:23 Patient medically screened. kb 09:19 Data reviewed: vital signs, nurses notes. Data interpreted: Pulse oximetry: on room air kb is 99 %. Interpretation: normal. Counseling: I had a detailed discussion with the patient and/or guardian regarding: the historical points, exam findings, and any diagnostic results supporting the discharge/admit diagnosis, lab results, the need for outpatient follow up, a family practitioner, to return to the emergency department if symptoms worsen or persist or if there are any questions or concerns that arise at home. 11/23 08:22 Order name: Strep tw2 11/23 08:23 Order name: Group A Streptococcus Rapid Sc; Complete Time: 09:19 EDMS 11/23 09:13 Order name: Throat Culture EDMS Administered Medications: 08:30 Drug: Ibuprofen 800 mg Route: PO; tw2 09:28 Follow up: Response: No adverse reaction tw2 08:30 Drug: GI Cocktail without - (Maalox Suspension 30 ml, Lidocaine Liquid 2 % 15 tw2 ml) Route: PO; 09:28 Follow up: Response: No adverse reaction tw2 Disposition: 11/24 06:57 Co-signature as Attending Physician, Jaci Delgado MD I agree with the assessment and sp3 plan of care. Disposition Summary: 11/23/20 09:25 Discharge Ordered Location: Home kb Condition: Stable kb Diagnosis - Acute pharyngitis, unspecified kb Followup: kb - With: Emergency Department - When: As needed - Reason: Worsening of condition Followup: kb - With: Private Physician - When: 2 - 3 days - Reason: Recheck today's complaints, Continuance of care, Re-evaluation by your physician Discharge Instructions: - Pharyngitis, [id number] kb - Discharge Summary Sheet tw2 Forms: - Medication Reconciliation Form kb - Thank You Letter kb - Antibiotic Education kb - Prescription Opioid Use kb - Work release form tw2 Signatures: Dispatcher [employer] EDMS Clarita Rose FNP-C FNP-Rayna Combs RN RN tw2 Jaci Delgado MD MD sp3
[2020-11-23 10:15] VITALS: TEMP 100
[2020-11-23 10:18] VITALS: BP 128/65; O2SAT 98
== END 2020-11-23 09:28 | disposition home or self-care (01) ==
LOC: ER 08:11
DX: J02.9 Acute pharyngitis, unspecified (principal)
CPT/HCPCS: 87070; 87081; 99283

== ENCOUNTER 2021-08-25 00:28 | Emergency (ER) | payer SELFPAY ==
--- OUTSIDE RECORDS SUMMARY | 2021-08-25 00:33 | XMS REPORT | Continuity of Care Document ---
:1990 Author Organization [facility] t Address [address] [place] [address] Care Team Providers Name Role Phone Sujatha Álvarez Primary Care Physician NAVJOT Attending Clinician Unavailable Navjot NEWELL Attending Clinician Visit, Nurse Attending Clinician Unavailable Sujahta Yang Attending Clinician Sujatha PARK Attending Clinician Unavailable Adry TIDWELL Attending Clinician Unavailable Adry Gonzalez Attending Clinician Payers Payer Name Policy Type Policy Number Effective Date Expiration Date Don ferreira [id number] 2019 00:00:00 Problems Condition Condition Condition Status Onset Resolution Last Treating Co mments Source Name Details Category Date Date Treatment Clinician Date Encounter Encounter Disease Active 2019-03 Uni vers for for 0-07 ity of initial initial 00:00: [place] prescripti prescripti 00 Me dical on of on of injectable injectable contracept contracept malini malini Well woman Well woman Disease Active 2019-03 U nivers exam exam 0-07 ity of 00:00: [place] [address] [place] [address] Branch BMI BMI Disease Active 2019- Univers 40.0-44.9, 40.0-44.9, 0-07 it y of adult adult 00:00: [place] 00 Medical Branch Status Status Disease Active Univers post post 7-19 ity of repeat [place] transverse transverse 00 Me dical Branch section section Single Single Disease Active Univers liveborn, liveborn, 7-19 ity of born in born in 00:00: [place] [facility], 00 [facility] delivered delivered Bran ch by by delivery delivery 39 weeks 39 weeks Disease Active Unive rs gestation gestation 7-16 ity of of of 00:00: [place] 00 [facility] Branch Previous Previous Disease Active Unive rs 7-16 ity of delivery, [place], [place] ante[place] antepartum 00 Me dical condition condition Bran ch or or complicati complicati on on Nausea & Nausea & Disease Active Unive rs vomiting vomiting 3 ity of 00:00: [place] 00 Medical Branch Headache Headache Disease Active Overview: Un ebonie 3 Formattin ity of 00:00: g of this [place] 00 note Medical might be Branch different from the original. ICD10 Diagnosis Term Strategy Intern Utility Obesity Obesity Disease Active Univers (BMI (BMI 2-26 ity of 30-39.9) 30-39.9) 00:00: [place] 00 Medical Branch Supervisio Supervisio Disease Active Overview : Univers n of other n of other 2- Formattin ity of high-risk high-risk 00:00: g of this [place] 00 note [facility] might be Branch different from the original. ICD10 Diagnosis Term Strategy Intern Utility Smoker Smoker Disease Active Univers 2-26 ity of 00:00: [place] 00 Medical Branch Allergies, Adverse Reactions, Alerts Allergy Allergy Status Severity Reaction(s) Onset Inactive Treating Comm ents Source Name Type Date Date Clinician NO KNOWN Drug Active Univers ALLERGIE Class ity of S [facility] Social History Social Habit Start Date Stop Date Quantity Comments Source History SDID University o f Alcohol Frequency [place] [facility] ed[facility] History [facility] o f Alcohol Std [place] [facility] Dr[facility] Branch History [facility] o f Alcohol Binge [place] [facility] History of Cigar Smoker [facility] o f tobacco use [facility] Exposure to 2021-08-13 2021-08-23 Not sure University of SARS-CoV-2 00:00:00 04:14:00 [facility] (event) [place] Alcohol intake 2021-05-22 2021-05-22 .14 /d University 00:00:00 00:00:00 [facility] Alcohol Comment 2021-05-07 2021-05-07 occasional Universit y of 00:00:00 00:00:00 drinker of wine [facility] Tobacco use and 2019-12-23 2019-12-23 Never used Universit y of exposure 00:00:00 00:00:00 [facility] Tobacco Comment 2019-12-23 2019-12-23 1-2 ciggs a week Uni versity of 00:00:00 00:00:00 [facility] Sex [birth year] Universit y of 00:00:00 00:00:00 [facility] Smoking Status Start Date Stop Date Source Current some day smoker 2019-12-23 00:00:00 [facility] of [facility] Medications Ordered Filled Start Stop Current Ordering Indication Dosage Frequency Signature Comments Components Source Medication Medication Date Date Medication? Clinician (SIG) Name Name iopamidol 2021- No [id number] 100mL 100 mL, Univers (ISOVUE 08-23 Intravenou ity o f 370-500 mL) 12:30: 11:19 s, ONCE, 1 [place] injection 00 :00 dose, On Medica l 100 mL Sat08/23/21 Branch at 0730, Routine diphenhydrA 2021- No 25mg 25 mg, Uni vers MINE 08-23 Slow IV ity of (BENADRYL) 12:15: 11:11 Push, [place] injection 00 :00 ONCE, 1 Medical 25 mg dose, On Branch Sat08/23/21 at 0715, STAT maalox:diph 2021- No 15mL 15 mL, Uni vers enhydrAMINE 08-23 Oral, ity of :lidocaine 12:00: 10:57 ONCE, 1 Jae as 2 % viscous 00 :00 dose, On Medi deepak 1:1:1 Sat08/23/21 Branch (FIRST-MOUT at 0700, [facility]) MICHEL oral suspension 15 mL FENTanyl PF 2021- No 75ug 75 mcg, Un ebonie (SUBLIMAZE 08-23- Slow IV ity o f (PF)) 12:00: 10:51 Push, [place] injection 00 :00 ONCE, 1 Medical 75 mcg dose, On Branch 08/23/21 at 0700, STAT ondansetron 2021- No 4mg 4 mg, Slow Univers (ZOFRAN 08-23 IV Push, ity of (PF)) 10:45: 09:37 ONCE, 1 [place] injection 4 00 :00 dose, On Medi deepak mg 08/23/21 Branch at 0545, MICHEL morpHINE (4 2021- No 4mg 4 mg, Slow Univers mg/mL) 08-23 IV Push, ity of injection 4 10:45: 09:37 ONCE, 1 [place] mg 00 :00 dose, On Medical 08/23/21 Branch at 0545, STAT dicyclomine Yes [id number] 20mg Take 1 Univers 20 mg 6-08 tablet by ity of tablet 00:00: mouth 4 [place] 00 (four) Medical times Branch daily. ondansetron 0 Yes [id number] 4mg Take 1 Univers 4 mg 6-08 tablet by ity of disintegrat 00:00: mouth [place] ing tablet 00 every 4 Medica l (four) Branch hours as needed for Nausea and Vomiting (N/V). famotidine 0 Yes [id number] 20mg Take 1 Univers 20 mg 6-08 tablet by ity of tablet 00:00: mouth 2 [place] 00 (two) Medical times Branch daily. docusate 0 Yes [id number] 250mg Take 1 U nivers sodium 250 6-08 capsule by ity of mg capsule 00:00: mouth once [place] 00 daily as Medical needed for Branch Constipati on. docusate 2021-0 Yes [id number] 250mg Take 1 U nivers sodium 250 6-08 capsule by ity of mg capsule 00:00: mouth once [place] 00 daily as Medical needed for Branch Constipati on. medroxyPROG 0 3- No [id number] 150mg Univers ESTERone 05-22- ity of (DEPO-PROVE 20:45: 20:44 [place] RA) 00 :00 Medical injection Branch 150 mg medroxyPROG 2022-0 2022- No [id number] 150mg 150 mg, Univers ESTERone 05-22 Intramuscu ity of (DEPO-PROVE 20:45: 20:44 lar, [place] RA) 00 :00 [id number], Medical injection 4 doses, Branch 150 mg First dose on Sat05/22/21 at 1445, Last dose on Sat01/29/22 at 1445, Routine medroxyPROG 2022-0 2022- No [id number] 150mg Univers ESTERone 05-22- ity of (DEPO-PROVE 20:45: 20:44 [place] RA) 00 :00 Medical injection Branch 150 mg medroxyPROG 2-0 2022- No [id number] 150mg 150 mg, Univers ESTERone 05-22 Intramuscu ity of (DEPO-PROVE 20:45: 20:44 lar, [place] RA) 00 :00 [id number], Medical injection 4 doses, Branch 150 mg First dose on Sat05/22/21 at 1445, Last dose on Sat01/29/22 at 1445, Routine medroxyPROG 2-0 2022- No [id number] 150mg Univers ESTERone 05-22 ity of (DEPO-PROVE 20:45: 20:44 [place] RA) 00 :00 Medical injection Branch 150 mg calcium/mag 2020-0 Yes [id number] 1{each} Take 1 Univers nesium/zinc 8-04 Each by ity o f (CALCIUM-MA 00:00: mouth [place] GNESUIUM-ZI 00 daily. Medica l [place]) Branch 333-133-5 mg Tab calcium/mag 2020-0 Yes [id number] 1{each} Take 1 Univers nesium/zinc 8-04 Each by ity o f (CALCIUM-MA 00:00: mouth [place] GNESUIUM-ZI 00 daily. Medica l [place]) Branch 333-133-5 mg Tab calcium/mag 2020-0 Yes [id number] 1{each} Take 1 Univers nesium/zinc 8-04 Each by ity o f (CALCIUM-MA 00:00: mouth [place] GNESUIUM-ZI 00 daily. Medica l [place]) Branch 333-133-5 mg Tab calcium/mag 2021-0 Yes [id number] 1{each} Take 1 Univers nesium/zinc 8-04 Each by ity o f (CALCIUM-MA 00:00: mouth [place] GNESUIUM-ZI 00 daily. Medica l [place]) [place] 333-133-5 mg Tab chlorphenir 2021- No [id number] 4mg Take 1 Univers amine 4 mg 8- 02-20 tablet by ity of tablet 00:00: 00:00 mouth [place] 00 :00 every 6 Medical (six) Branch hours as needed for Allergies or Runny nose. benzonatate 2021- No [id number] 100mg Take 1 Univers 100 mg 8 02-20 capsule by ity of capsule 00:00: 00:00 mouth 3 [place] 00 :00 (three) Medical times Branch daily as needed for Cough. Immunizations Ordered Filled Immunization Date Status Comments Sour e Immunization Name Name PPD (TB) 2012-04-25 Completed University of 00:00:00 [facility] PPD (TB) 2012-04-25 Completed University of 00:00:00 [facility] PPD (TB) 2012-04-25 Completed University of 00:00:00 [facility] PPD (TB) 2012-04-25 Completed University of 00:00:00 [facility] Influenza Virus 2012-03-22 Completed Universit y of Vaccine 00:00:00 [facility] Influenza Virus 2012-03-22 Completed Universit y of Vaccine 00:00:00 [facility] Influenza Virus 2012-03-22 Completed Universit y of Vaccine 00:00:00 [facility] Influenza Virus 2012-03-22 Completed Universit y of Vaccine 00:00:00 [facility] Rubella 2010-05-16 Completed University of 00:00:00 [facility] Rubella 2010-05-16 Completed University of 00:00:00 [facility] Rubella 2010-05-16 Completed University of 00:00:00 [facility] Rubella 2010-05-16 Completed University of 00:00:00 [facility] Td 2005-03-18 Completed University of 00:00:00 [facility] Td 2005-03-18 Completed University of 00:00:00 [facility] Td 2005-03-18 Completed University of 00:00:00 [facility] Td 2005-03-18 Completed University of 00:00:00 [facility] Branch Hep B, Adol or Pedi 1998-05-27 Completed Unive rsity of Dosage 00:00:00 [place] [facility] Hep B, Adol or Pedi 1998-05-27 Completed Unive rsity of Dosage 00:00:00 [place] [facility] Hep B, Adol or Pedi 1998-05-27 Completed Unive rsity of Dosage 00:00:00 [facility] Branch Hep B, Adol or Pedi 1998-05-27 Completed Unive rsity of Dosage 00:00:00 [place] [facility] Hep B, Adol or Pedi 1998-04-28 Completed Unive rsity of Dosage 00:00:00 [facility] Branch Hep B, Adol or Pedi 1998-04-28 Completed Unive rsity of Dosage 00:00:00 [facility] Branch Hep B, Adol or Pedi 1998-04-28 Completed Unive rsity of Dosage 00:00:00 [facility] Hep B, Adol or Pedi 1998-04-28 Completed Unive rsity of Dosage 00:00:00 [facility] Vital Signs Vital Name Observation Time Observation Value Comments Source Systolic blood 2021-08-23 12:09:57 103 mm[Hg] Univer sity of pressure [facility] Diastolic blood 2021-08-23 12:09:57 52 mm[Hg] Unive rsity of pressure [facility] Heart rate 2021-08-23 12:09:57 56 /min [facility] Respiratory rate 2021-08-23 12:09:57 16 /min [facility] Oxygen saturation in 2021-08-23 12:09:57 99 /min [facility] Arterial blood by [facility] Pulse oximetry [place] Body temperature 2021-08-23 11:00:[address] [facility] Body height 2021-08-23 09:18:00 149.9 cm [facility] Body weight 2021-08-23 09:18:00 99.791 kg [facility] BMI 2021-08-23 09:18:00 44.43 kg/m2 [facility] Systolic blood 2021-08-15 18:59:00 120 mm[Hg] Univer sity of pressure [facility] Diastolic blood 2021-08-15 18:59:00 66 mm[Hg] Unive rsity of pressure [place] [facility] Heart rate 2021-08-15 18:59:00 63 /min Universi ty of [place] [facility] Body temperature 2021-08-15 18:59:00 36.89 Concepcion Univ ersity of [place] [facility] Respiratory rate 2021-08-15 18:59:00 20 /min Univ ersity of [place] [facility] Body height 2021-08-15 18:59:00 149.9 cm Universi ty of [place] [facility] Body weight 2021-08-15 18:59:00 101.878 kg Universi ty of [place] [facility] BMI 2021-08-15 18:59:00 45.36 kg/m2 Universi ty of [place] [facility] Body weight 2021-05-22 20:29:00 102.059 kg Universi ty of [place] [facility] BMI 2021-05-22 20:29:00 45.44 kg/m2 Universi ty of [place] [facility] Systolic blood 2021-05-22 20:29:00 104 mm[Hg] Univer sity of pressure [place] [facility] Diastolic blood 2021-05-22 20:29:00 77 mm[Hg] Unive rsity of pressure [place] [facility] Heart rate 2021-05-22 20:29:00 74 /min Universi ty of [place] [facility] Body temperature 2021-05-22 20:29:00 35.78 Concepcion Univ ersity of [place] [facility] Respiratory rate 2021-05-22 20:29:00 18 /min Univ ersity of [place] [facility] Body height 2021-05-22 20:29:00 149.9 cm Universi ty of [place] [facility] Systolic blood 2021-05-07 18:52:00 119 mm[Hg] Univer sity of pressure [place] [facility] Diastolic blood 2021-05-07 18:52:00 64 mm[Hg] Unive rsity of pressure [place] [facility] Heart rate 2021-05-07 18:52:00 80 /min Universi ty of [place] [facility] Body temperature 2021-05-07 18:52:00 36.83 Concepcion Univ ersity of [place] [facility] Respiratory rate 2021-05-07 18:52:00 16 /min Univ ersity of [place] [facility] Body height 2021-05-07 18:52:00 149.9 cm [facility] Body weight 2021-05-07 18:52:00 100.699 kg [facility] BMI 2021-05-07 18:52:00 44.84 kg/m2 [facility] Procedures Procedure Date / Time Performing Clinician Source Performed CT ABDOMEN PELVIS W 2021-08-23 11:21:00 Kyara Morfin [facility] CONTRAST [facility] POCT TEST 2021-08-23 09:40:00 Kyara Morfin [facility] LIPASE 2021-08-23 09:39:00 Kyara Morfin [facility] COMP. METABOLIC PANEL 2021-08-23 09:39:00 Kyara Morfin [facility] ([id number]) [facility] CBC WITH DIFF 2021-08-23 09:39:00 Kyara Morfin [facility] PROTHROMBIN TIME / INR 2021-08-23 09:39:00 Kyara Morfin [facility] ACTIVATED PARTIAL 2021-08-23 09:39:00 Kyara Morfin [facility] THRMPLAS [facility] NOTICE OF PRIVACY 2021-08-23 09:08:09 Doctor Unassigned, No Univ [facility] PRACTICES Name [facility] CONSENT/REFUSAL FOR 2021-08-23 09:07:52 [facility]assigned, No [facility] Name [facility] POCT TEST 2021-05-22 20:30:00 [place] [facility] 2021-05-07 19:23:00 Sarah Beth Tidwell [facility] Encounters Start End Encounter Admission Attending Care Care Encounter Source Date/Time Date/Time Type Type Clinicians Facility Department ID 2021-11-07 2021-11-07 Outpatient R [facility] [id number] Univers 14:00:00 14:00:[id number] [facility] 2021-11-07 2021-11-07 Outpatient R [facility] [id number] Univers 14:00:00 14:00:00 [facility] 2021-08-23 2021-08-23 Emergency X NAVJOT RIAGUEDA ERT [id number] Univers 04:13:00 07:11:00 KYARA ity [facility] 2021-08-23 2021-08-23 [facility] [id number] Univers 04:13:00 07:11:00 [facility] [id number] i ty [facility] [id number] [id number] [address] 2021-08-15 2021-08-15 Nurse Visit, Lollyp Nurse [place] [id number] Univers 14:00:00 14:18:26 Visit [place] [facility] [id number]. 10 ity of [facility] [id number] Jae as MATERNAL [id number] [facility] ical & CHILD [address] [place] [address] 2021-08-15 2021-08-15 Outpatient R [facility] [id number] Univers 14:00:00 14:00:00 [id number] ity [facility] 2021-08-15 2021-08-15 Outpatient R XAVIER [facility] [id number] Univers 14:00:00 14:00:00 CARLY cardenas [facility] 2021-05-22 2021-05-22 [facility] [id number] Univers 14:00:00 14:46:37 SARAH BETH oneal [facility] 2021-05-22 2021-05-22 Nurse Visit, Mady Nurse [place] [id number] Univers 14:00:00 14:46:37 Visit Sarah Beth Tidwell [employer] [id number] ity of [facility] [id number] Jae as MATERNAL [id number] [facility] ical & CHILD [address] [place] [address] 2021-05-07 2021-05-07 Office Sam [facility] [id number] Univers 12:30:00 13:16:42 Visit Sarah Beth Rider [employer]IL[employer]S CHO[employer] DIRECT[employer] [id number] ity of [facility] [id number] Jae as MATERNAL [id number] Med ical & CHILD 107 [facility] 2021-05-07 2021-05-07 Outpatient R SAM [facility] [id number] Univers 12:30:00 13:16:42 SARAH BETH mandujano o f [facility] 2020-03-16 2020-03-16 Nurse Visit, [place] [id number] 15:19:49 15:34:14 Visit [facility] CHILDREN[employer]S CHOIR DIRECTOR [id number] Nurse REGIONAL [id number] MATERNAL [id number] & CHILD 107 [facility] 2019-12-23 2019-12-23 Office Sam [place] [id number] 15:21:11 16:17:47 Visit Sarah Beth Rider CHILDREN'S CHOIR DIRECTOR [id number] REGIONAL [id number] MATERNAL [phone] & CHILD 107 [facility] Results Test Description Test Time Test Comments Results Result Comments Source CBC WITH DIFF 2021-08-23 10:25:39 Test Item Value Reference Range Interpretation Comme nts WBC (test code = 6690-2) See_Comment [A utomated message] The system which ge nerated this result transmit michell reference range: 4.30 - 1 1.10 10*3/?L. The reference r beto was not used to interpr et this result as normal/abnor mal. RBC (test code = 789-8) See_Comment [Au tomated message] The system which Intelligroup nerated this result transmit michell reference range: 3.93 - 5 .25 10*6/?L. The reference r beto was not used to interpr et this result as normal/abnor mal. HGB (test code = 718-7) 11.2 g/dL 11.6-15.0 L HCT (test code = 4544-3) 35.9 % 35.7-45.2 MCV (test code = 787-2) 78.9 fL 80.6-95.5 L MCH (test code = 785-6) 24.6 pg 25.9-32.8 L MCHC (test code = 786-4) 31.2 g/dL 31.6-35.1 L RDW-SD (test code = 37756-1) 40.5 fL 39.0-49.9 RDW-CV (test code = 788-0) 14.0 % 12.0-15.5 PLT (test code = 777-3) See_Comment H [Au tomated message] The system which ge nerated this result transmit michell reference range: 166 - 35 8 10*3/?L. The reference range was not used to interpret th is result as normal/abnormal . MPV (test code = 99016-0) 9.6 fL 9.5-12.9 NRBC/100 WBC (test code = See_Comment [ Automated message] The 6993870052) system which ge nerated this result transmit michell reference range: 0.0 - 10 .0 /100 WBCs. The reference r beto was not used to interpr et this result as normal/abnor mal. NRBC x10^3 (test code = <0.01 See_Comment [Au tomated message] The 6564036372) system which ge nerated this result transmit michell reference range: 10*3/?L. The reference range was not u sed to interpret this result as normal/abnormal . GRAN MAT (NEUT) % (test code 38.0 % = 770-8) IMM GRAN % (test code = 0.10 % 5026559254) LYMPH % (test code = 736-9) 53.8 % MONO % (test code = 5905-5) 6.2 % EOS % (test code = 713-8) 1.6 % BASO % (test code = 706-2) 0.3 % GRAN MAT x10^3(ANC) (test 2.84 10*3/uL 1.88-7.09 code = 2905864909) IMM GRAN x10^3 (test code = <0.03 0.00-0.06 4519924226) LYMPH x10^3 (test code = 4.02 10*3/uL 1.32-3.29 H 731-0) MONO x10^3 (test code = 0.46 10*3/uL 0.33-0.92 742-7) EOS x10^3 (test code = 0.12 10*3/uL 0.03-0.39 711-2) BASO x10^3 (test code = <0.03 0.01-0.07 704-7) Lab Interpretation (test Abnormal code = 33608-2) [facility]. METABOLIC PANEL ([id number])2021-08-23 10:10:54 Test Item Value Reference Range Interpretation Comments NA (test code = 142 mmol/L 135-145 7764627746) K (test code = 3.7 mmol/L 3.5-5.0 5773886300) CL (test code = 107 mmol/L 98-108 6329531792) CO2 TOTAL (test code = 25 mmol/L 23-31 1631896207) AGAP (test code = 2-16 4416420825) BUN (test code = 9 mg/dL 7-23 4225736932) GLUCOSE (test code = 114 mg/dL 70-110 H 1360911087) CREATININE (test code = 0.64 mg/dL 0.50-1.04 0331960471) TOTAL BILI (test code = 0.3 mg/dL 0.1-1.7 3127635039) CALCIUM (test code = 8.5 mg/dL 8.6-10.6 L 0834798515) T PROTEIN (test code = 6.4 g/dL 6.3-8.2 8479502053) ALBUMIN (test code = 3.6 g/dL 3.5-5.0 6525169718) ALK PHOS (test code = 51 U/L 34-122 7962704896) ALTv (test code = 12 U/L 5-35 1742-6) AST(SGOT) (test code = 18 U/L 13-40 0139079987) eGFR (test code = mL/min/1.73m2 5387522304) RIKKI (test code = RIKKI) Association of Glomerular Filtration Rate (GFR) and Staging of Kidney Disease* + --+ --+ ------+| GFR (mL/min/1.73 m2) ?| With Kidney Damage ?| ?Without Kidney Damage+ --------+ --------+ +| ?>90 ?| ?Stage one ?| ? Normal ?+ ---+ ---+ -------+| ?60-89 ?| ?Stage two ?| ? Decreased GFR ? + --+ --+ ------+| ?30-59 ?| ?Stage three ?| ? Stage three ? + --+ --+ ------+| ?15-29 ?| ?Stage four ? | ? Stage four ?+ ---+ ---+ -------+| ?<15 (or dialysis) ? ?| ?Stage five ? | ? Stage five ?+ ---+ ---+ -------+ *Each stage assumes the associated GFR level has been in effect for at least three months. ?Stages 1 to 5, with or without kidney disease, indicate chronic kidney disease. Notes: Determination of stages one and two (with eGFR >59mL/min/1.73 m2) requires estimation of kidney damage for at least three months as defined by structural or functional abnormalities of the kidney, manifested by either:Pathological abnormalities or Markers of kidney damage (including abnormalities in the composition of the blood or urine or abnormalities in imaging tests). Lab Interpretation Abnormal (test code = 20405-3) [facility]53 Test Item Value Reference Range Interpretation Comments LIPASE (test code = 6055697029) 138 U/L 0-220 Lab Interpretation (test code = Normal 52802-2) [facility] THRM[facility] [id number] 10:04:31 Test Item Value Reference Range Interpretation Comments APTT Patient (test See_Comment [Automat ed code = 3173-2) message] The system which generated this result transmitted reference range : 23 - 38 Seconds . The reference range was not used to interpr et this result as normal/abnormal . RIKKI (test code = RIKKI) The RUST patient population mean normal value for aPTT is 30 seconds. Lab Interpretation Normal (test code = 35170-8) [facility] / [id number] 10:02:30 Test Item Value Reference Range Interpretation Comments PROTIME PATIENT (test See_Comment [Auto mated message] code = 5964-2) The system wh ich generated this result transmitted ref erence range: 12.0 - 1 4.7 Seconds. The re ference range was not u sed to interpret this result as normal/abnor mal. INR (test code = 6301-6) Nor mal INR <1.1; Warfarin Therap eutic range 2.0 to 3. 0 or 2.5 to 3.5, dep ending upon the indica tions. Lab Interpretation (test Normal code = 13437-7) [facility] [id number] 09:40:00 Test Item Value Reference Range Interpretation Comments POCT PREG (test code = 1605) Negative On board controls acceptable with Positive C Line (test code = 3574) POCT PREG LOT # (test code = 3575) [id number] POCT PREG TEST DATE (test 12/15/2022 code = 3576) Lab Interpretation (test code = Normal 50651-0) [facility] [id number] 20:30:00 Test Item Value Reference Range Interpretation Comments POCT PREG (test code = 1605) Negative On board controls acceptable with C Yes Line (test code = 3574) POCT PREG LOT # (test code = 3575) POCT PREG TEST DATE (test code = 3576) [facility] [id number] 19:23:00 Test Item Value Reference Range Interpretation Comments POCT PREG (test code = 1605) Negative On board controls acceptable with C Yes Line (test code = 3574) POCT PREG LOT # (test code = 3575) POCT PREG TEST DATE (test code = 3576) [facility]"
[2021-08-25] MEDS ORDERED: KETOROLAC 30 MG/ML INJ ONE (01:03)
--- NOTE | 2021-08-25 01:49 | EDPHYS ---
Physician Documentation [facility] Name: Stanislaw Varner Age: 31 yrs Sex: Female : 1990 Arrival Date: 08/25/2021 Time: 00:32 Bed 26 Private MD: ED Physician Otoniel Horta HPI: 08/25 01:30 This 31 yrs old Black Female presents to ER via Wheelchair with complaints of Knee Pain.rn 01:30 The patient presents with pain, that is acute. The complaints affect the right knee. rn Onset: The symptoms/episode began/occurred at an unknown time. Modifying factors: The symptoms are alleviated by remaining still, the symptoms are aggravated by movement, weight bearing, bending knee. Associated signs and symptoms: Pertinent negatives fever, tingling, warmth, weakness. Severity of symptoms: At their worst the symptoms were moderate, in the emergency department the symptoms are unchanged. The patient has experienced similar episodes in the past. The patient has not recently seen a physician. Pt reports right knee pain, present on and off for months, states gets intermittent swelling with it, worse over last couple of days. No fever. No trauma or fall. No calf tenderness or swelling. Able to walk and drove herself here. No chills. . 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 - Social history:: Smoking status: Patient reports the use of cigarette tobacco products, black and mild's- occasionally . - Family history:: not pertinent. - Hospitalizations: : No recent hospitalization is reported. ROS: 01:30 Constitutional: Negative for fever, chills, and weight loss, Cardiovascular: Negative rn for chest pain, palpitations, and edema, Respiratory: Negative for shortness of breath, cough, wheezing, and pleuritic chest pain, Abdomen/GI: Negative for abdominal pain, nausea, vomiting, diarrhea, and constipation, MS/Extremity: + right knee pain Skin: Negative for injury, rash, and discoloration, Neuro: Negative for headache, weakness, numbness, tingling, and seizure. Exam: 01:30 Constitutional: This is a well developed, well nourished patient who is awake, alert, rn sitting in bed with right knee flexed and propped up Skin: Warm, dry with normal turgor. Normal color with no rashes, no lesions, and no evidence of cellulitis. MS/ Extremity: Pulses equal, no cyanosis. Neurovascular intact. Able to actively flex and extend affected knee. No gross deformity or swelling. No palpable cord in fossa, no calf tenderness or swelling. No patellar or focal bony pain noted. Vital Signs: 00:35 Weight 99.79 kg; Height 4 ft. 11 in. (149.86 cm); Pain 8/10; tw5 00:35 BP 121 / 69; tw5 01:38 Pain 0/10; ag7 00:35 Body Mass Index 44.43 (99.79 kg, 149.86 cm) tw5 MDM: 00:33 Patient medically screened. rn 01:47 Differential diagnosis: tendonitis, strain, sprain, arthritis, knee effusion. Data rn reviewed: vital signs, nurses notes, radiologic studies, plain films, and as a result, I will discharge patient. Counseling: I had a detailed discussion with the patient and/or guardian regarding: the historical points, exam findings, and any diagnostic results supporting the discharge/admit diagnosis, radiology results, the need for outpatient follow up, to return to the emergency department if symptoms worsen or persist or if there are any questions or concerns that arise at home. Response to treatment: the patient's symptoms have mildly improved after treatment, and as a result, I will discharge patient. Special discussion: I discussed with the patient/guardian in detail that at this point there is no indication for admission to the hospital. It is understood, however, that if the symptoms persist or worsen the patient needs to return immediately for re-evaluation. Further emergent ED testing is not indicated at this point in time. I discussed with the patient/guardian in detail the need to arrange with the PCP or specialist further outpatient testing, MRI, Based on the history and exam findings, there is no indication for further emergent testing or inpatient evaluation. I discussed with the patient/guardian the need to see the orthopedic surgeon for further evaluation of the symptoms. ED course: No acute findings on xray. Doesn't recall obvious injury, but states pain is intermittent, felt it after getting up off couch. Recommend ortho f/u and MRI if continues. Return precautions given and understood.. 08/25 00:49 Order name: XRAY Knee RIGHT 3 view rn Administered Medications: 01:01 Drug: Ketorolac 30 mg Route: IM; Site: right deltoid; ag7 01:38 Follow up: Pain 0/10 Adult; Response: No adverse reaction ag7 Disposition Summary: 08/25/21 01:49 Discharge Ordered Location: Home rn Problem: new rn Symptoms: have improved rn Condition: Stable rn Diagnosis - Pain in right knee rn Followup: rn - With: Private Physician - When: As needed - Reason: Recheck today's complaints, Re-evaluation by your physician Discharge Instructions: - Discharge Summary Sheet rn - How to Use a Knee Brace rn - Acute Knee Pain, Adult rn Forms: - Medication Reconciliation Form rn - Thank You Letter rn - 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
--- NOTE | 2021-08-25 01:49 | ER ---
Nurse's Notes [facility] Name: Stanislaw Varner Age: 31 yrs Sex: Female : 1990 Arrival Date: 08/25/2021 Time: 00:32 Bed 26 Private MD: Diagnosis: Pain in right knee Presentation: 08/25 00:35 Chief complaint: Patient states: "It hurts off and on but today it really hurts. There tw5 is usually a little swollen pocket but today there is not swollen pocket. " Patient denies injury. Coronavirus screen: Vaccine status: Patient reports receiving the 2nd dose of the covid vaccine. [employer] Ebola Screen: Patient negative for fever greater than or equal to 101.5 degrees Fahrenheit, and additional compatible Ebola Virus Disease symptoms Patient denies exposure to infectious person. Patient denies travel to an Ebola-affected area in the 21 days before illness onset. Initial Sepsis Screen: Does the patient meet any 2 criteria? No. Patient's initial sepsis screen is negative. Does the patient have a suspected source of infection? No. Patient's initial sepsis screen is negative. Risk Assessment: Do you want to hurt yourself or someone else? Patient reports no desire to harm self or others. Onset of symptoms is unknown. 00:35 Method Of Arrival: Wheelchair tw5 00:35 Acuity: MITCH 4 tw5 Triage Assessment: 00:37 General: Appears uncomfortable, obese, Behavior is calm, cooperative, appropriate for tw5 age. Pain: Complains of pain in right knee Pain currently is 8 out of 10 on a pain scale. 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 - Social history:: Smoking status: Patient reports the use of cigarette tobacco products, black and mild's- occasionally . - Family history:: not pertinent. - Hospitalizations: : No recent hospitalization is reported. Screenin:06 Abuse screen: Denies threats or abuse. Nutritional screening: No deficits noted. ag7 Tuberculosis screening: No symptoms or risk factors identified. Fall Risk No fall in past 12 months (0 pts). No secondary diagnosis (0 pts). No IV (0 pts). Ambulatory Aid- None/Bed Rest/Nurse Assist (0 pts). Gait- Normal/Bed Rest/Wheelchair (0 pts) Mental Status- Oriented to own ability (0 pts). Total Hdez Fall Scale indicates No Risk (0-24 pts). Assessment: 01:04 General: Appears in no apparent distress. Behavior is calm, cooperative, appropriate ag7 for age. Pain: Complains of pain in right knee Pain does not radiate. Pain currently is 9 out of 10 on a pain scale. Quality of pain is described as aching, Pain began suddenly, Is continuous, Alleviated by nothing. Neuro: Level of Consciousness is awake, alert, obeys commands, Oriented to Appropriate for age. Cardiovascular: Patient's skin is warm and dry. Respiratory: Airway is patent Trachea midline Respiratory effort is even, unlabored, Respiratory pattern is regular, symmetrical. Musculoskeletal: Range of motion: limited in right knee Swelling present in right knee. 01:38 Reassessment: Patient is alert, oriented x 3, equal unlabored respirations, skin ag7 warm/dry/pink. patient verbalize no pain when lying still, patient reports pain is aggravated with movement Patient states feeling better. Patient states symptoms have improved. Vital Signs: 00:35 Weight 99.79 kg; Height 4 ft. 11 in. (149.86 cm); Pain 8/10; tw5 00:35 BP 121 / 69; tw5 01:38 Pain 0/10; ag7 00:35 Body Mass Index 44.43 (99.79 kg, 149.86 cm) tw5 ED Course: 00:32 Patient arrived in ED. ja2 00:33 Otoniel Horta MD is Attending Physician. rn 00:37 Triage completed. tw5 00:37 Arm band placed on. tw5 00:51 Yusra Short, EMETERIO is Primary Nurse. ag7 01:06 Patient has correct armband on for positive identification. Bed in low position. Call ag7 light in reach. Side rails up X 1. 01:07 No provider procedures requiring assistance completed. Patient did not have IV access ag7 during this emergency room visit. 01:14 XRAY Knee RIGHT 3 view In Process Unspecified. EDMS Administered Medications: 01:01 Drug: Ketorolac 30 mg Route: IM; Site: right deltoid; ag7 01:38 Follow up: Pain 0/10 Adult; Response: No adverse reaction ag7 Medication: 01:07 VIS not applicable for this client. ag7 Outcome: 01:49 Discharge ordered by . rn 01:54 Discharged to home ambulatory. ag7 01:54 Condition: stable 01:54 Discharge instructions given to patient, Instructed on discharge instructions, follow up and referral plans. medication usage, Demonstrated understanding of instructions, follow-up care, medications, Prescriptions given X 1. 01:55 Patient left the ED. ag7 Signatures: Dispatcher [employer] EDMS Otoniel Horta MD MD rn Alexander, Jessica ja2 Wood, Tiffany tw5 Yusra Short RN RN 7 Corrections: (The following items were deleted from the chart) 00:37 00:37 PMHx: Back pain; tw5 tw5
[2021-08-25 02:02] VITALS: BP 121/69
--- NOTE | 2021-08-25 23:07 | RAD REPORT ---
EXAM DESCRIPTION: RAD - Knee Right 3 View - 08/25/2021 1:13 am CLINICAL HISTORY: 31 years, Female, PAIN COMPARISON: None FINDINGS: 3 X-ray views of the right knee (Frontal, lateral and oblique views) were performed. There is no evidence for fracture or dislocation. There are no gross intraosseous lesions. No peter ss articular or soft tissue abnormality is identified. There is no joint effusion. There is no pe riostitis. IMPRESSION: No acute osseous abnormality. Electronically signed by: Destin Rayo MD 08/25/2021 1:29 AM CDT Due to temporary technical issues with the PACS/Fluency reporting system, reports are being signed by the in house radiologists without review as a courtesy to insure prompt reporting. The interpreting radiologist is fully responsible for the content of the report.
== END 2021-08-25 01:55 | disposition home or self-care (01) ==
LOC: ER 00:28
DX: M25.561 Pain in right knee (principal)
CPT/HCPCS: 96372; 99283

== ENCOUNTER 2023-09-09 15:04 | Emergency (ER) | payer OTHER ==
--- OUTSIDE RECORDS SUMMARY | 2023-09-09 15:09 | XMS REPORT | Continuity of Care Document ---
Author Name Unknown Address [address] [facility] [address] [place] [address] [facility] thconnect Address [address] [facility] [place] [address] Care Team Providers Care Installation Specialist Name Role Phone KAYA EAST Primary Care Physician Unav ailable PAULA DAMON Attending Clinician Unavaila VIMAL Hunt Attending Clinician Unavailable Gracie Yang Attending Clinician + Paula Damon CNM Attending Clinician MICHAEL DAMON Attending Clinician Unavailable Mauri Yanez DO Attending Clinician [phone] Michael Pineda Attending Clinician [phone] MAKENZIE FLANNERY Attending Clinician Unavailab Makenzie Wills DO Attending Clinician [phone] GRACIE GRANDE Attending Clinician Unavail able [facility] Unava ilable Doctor Unassigned, [place] Attending Clinician U navailALISON Benz Attending Clinician Unavailab Sarah Beth Ortiz Attending Clinician WALT Rizvi Attending Clinician UnavailWalt Law MD Attending Clinician [phone] KYLIE PACE Attending Clinician Unavailable MAURI YANEZ Attending Clinician Unavailable SARAH BETH VARGAS Attending Clinician Unavailab KYARA Haywood Attending Clinician Unavailable Kyara Morfin MD Attending Clinician [phone] AMEE MARION Attending Clinician UnavailMICHAEL Zazueta Admitting Clinician Unavailable ALISON SULLIVAN Admitting Clinician Unavailab WALT Green Admitting Clinician UnavailMAURI Lubin Admitting Clinician Unavailable KYARA MORFIN Admitting Clinician Unavailable Payers Payer Name Policy Type Policy Number Effective Date Expirati on Date Source KEO THOMPSON MICHELLE CARL S O IRON MINER 94 ON 9 [id number] 2023 00:00:00 Problems Condition Name Condition Details Condition Category Status Onset Date Resolution Date Last Treatment Date Treating Clinician Comments Source Morbid obesity Morbid obesity Disease Active 2019-03 00:00: 00 [facility] Encounter for initial prescripti on of injectable contracept malini Encounter for initial prescripti on of injectable contracept malini Disease Active 2019-03 00:00: 00 [facility] Well woman exam Well woman exam Disease Active 2019-03 00:00: 00 [facility] BMI 40.0-44.9, adult BMI 40.0-44.9, adult Disease Active 2019-03 00:00: 00 [facility] Status post repeat low transverse section Status post repeat low transverse section Disease Active 10-03 00:00: 00 [facility] Single liveborn, born in hospital, delivered by delivery Single liveborn, born in hospital, delivered by delivery Disease Active 10-03 00:00: 00 [facility] 39 weeks gestation of 39 weeks gestation of Disease Active 09-30 00:00: 00 [facility] Previous delivery, antepartum condition or complicati on Previous delivery, antepartum condition or complicati on Disease Active 09-30 00:00: 00 [facility] Nausea & vomiting Nausea & vomiting Disease Active 05-16 00:00: 00 [facility] Headache Headache Disease Active 05-16 00:00: 00 Overview: Formattin g of this note might be different from the original. 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 ICD10 Diagnosis Term [facility] [employer] [facility] Smoker Smoker Disease Active 05-13 00:00: 00 [facility] Allergies, Adverse Reactions, Alerts Allergy Name Allergy Type Status Severity Reaction(s) Onset Date Inactive Date Treating Clinician Comments Source NO KNOWN ALLERGIE S Drug Class Active [facility] Social History Social Habit Start Date Stop Date Quantity Comments Source History SDOH Alcohol Frequency [facility] History SDOH Alcohol Std Drinks [facility] History SDOH Alcohol Binge [facility] History of tobacco use Cigar Smoker [facility] Gender identity [facility] Sexual orientation [facility] History of Social function 2023-07-31 00:00:00 2023-07-31 00:00:00 [facility] Alcoholic beverage intake 2023-07-31 00:00:00 2023-07-31 00:00:00 .14 /d [facility] Alcohol intake 2022-11-29 00:00:00 2022-11-29 00:00:00 .14 /d [facility] Exposure to SARS-CoV-2 (event) 2022-05-13 00:00:00 2022-05-23 09:39:00 Not sure [facility] Tobacco use and exposure 2022-05-23 00:00:00 2022-05-23 00:00:00 Smokeless tobacco non-user [facility] Tobacco Comment 2022-05-23 00:00:00 2022-05-23 00:00:00 1-2 ciggs a week [facility] Alcohol Comment 2021-05-07 00:00:00 2021-05-07 00:00:00 occasional drinker of wine [facility] Sex assigned at 1990 00:00:00 1990 00:00:00 [facility] Smoking Status Start Date Stop Date Source Occasional tobacco smoker 2022-05-23 00:00:00 [facility] Medications Ordered Medication Name Filled Medication Name Start Date Stop Date Current Medication? Ordering Clinician Indication Dosage Frequency Signature (SIG) Comments Components Source medroxyPROG ESTERone (DEPO-PROVE RA) syringe 150 mg 07-30 20:30: 00 09-23 20:29 :00 Yes [id number] 150mg 150 mg, Intramuscu lar, [id number], 5 doses, First dose on Sat07/31/23 at 1530, Last dose on Sat07/01/24 at 1530, Routine [facility] ibuprofen (IBU) tablet 800 mg 03-29 00:45: 00 03-29 01:35 :00 No 800mg 800 mg, Oral, ONCE, 1 dose, On Sat03/28/23 at 1845, [facility] ibuprofen 600 mg tablet 03-28 00:00: 00 07-30 00:00 :00 No [id number] 600mg Take 1 tablet by mouth every 6 (six) hours as needed for Pain (scale 4-6). [facility] ibuprofen (IBU) tablet 800 mg 03-19 02:15: 00 03-19 02:14 :00 No 800mg 800 mg, Oral, ONCE, 1 dose, On Sat03/18/23 at 2015, [facility] ondansetron 4 mg disintegrat ing tablet 03-18 00:00: 00 07-30 00:00 :00 No [id number] 4mg Take 1 tablet by mouth every 8 (eight) hours as needed for Nausea and Vomiting (N/V). [facility] maalox:diph enhydrAMINE :lidocaine 2 % viscous 1:1:1 (FIRST-MOUT [facility]) oral suspension 15 mL 11-28 13:45: 00 11-28 14:03 :00 No 15mL 15 mL, Oral, ONCE, 1 dose, On Sat11/28/22 at 0845, Routine [facility] haloperidol lactate (HALDOL) injection 2.5 mg 11-28 13:45: 00 11-28 14:02 :00 No 2.5mg 2.5 mg, Intravenou s, ONCE, 1 dose, On Sat11/28/22 at 0845, STAT [facility] ondansetron (ZOFRAN (PF)) injection 4 mg 11-28 12:45: 00 11-28 13:27 :00 No 4mg 4 mg, Slow IV Push, ONCE, 1 dose, On Sat11/28/22 at 0745, MICHEL [facility] OLANZapine ZYDIS 5 mg disintegrat ing tablet 11-28 00:00: 00 07-30 00:00 :00 No [id number] 5mg Take 1 tablet by mouth every 8 (eight) hours as needed for Nausea and Vomiting (N/V). [facility] iopamidol (ISOVUE 370-500 mL) injection 80 mL 11-26 21:15: 00 11-26 21:15 :00 No [id number] 80mL 80 mL, Intravenou s, ONCE, 1 dose, On Sat11/26/22 at 1615, Routine [facility] ketorolac (TORADOL) injection 15 mg 11-26 20:45: 00 11-26 19:59 :00 No 15mg 15 mg, Slow IV Push, ONCE, 1 dose, On Sat11/26/22 at 1545, Routine [facility] NaCl 0.9% (NS) bolus infusion 1,000 mL 11-26 19:00: 00 11-26 21:36 :00 No 1000mL at 999 mL/hr, 1,000 mL, IV Infusion, ONCE, 1 dose, On Sat11/26/22 at 1400, MICHEL [facility] medroxyPROG ESTERone (DEPO-PROVE RA) syringe 150 mg 08 17:15: 00 04-24 17:14 :00 No [id number] 150mg [facility] iopamidol (ISOVUE 370-500 mL) injection 85 mL 03-26 14:35: 00 03-26 14:45 :00 No [id number] 85mL 85 mL, Intravenou s, ONCE, 1 dose, On Sat03/26/22 at 0845, Routine [facility] ketorolac (TORADOL) injection 30 mg 03-26 14:30: 00 03-26 13:50 :00 No 30mg 30 mg, Slow IV Push, ONCE, 1 dose, On Sat03/26/22 at 0830, MICHEL [facility] NaCl 0.9% (NS) bolus infusion 1,000 mL 03-26 14:30: 00 03-26 16:48 :00 No 1000mL at 999 mL/hr, 1,000 mL, IV Infusion, ONCE, 1 dose, On Sat03/26/22 at 0830, [facility] traMADoL 50 mg tablet 03-26 00:00: 00 05-23 00:00 :00 No [id number] 50mg Take 1 tablet by mouth every 6 (six) hours as needed (PAIN). Indication s: acute pain [facility] ondansetron 4 mg tablet 03-26 00:00: 00 05-23 00:00 :00 No [id number] 1-2 tablets every 8 hours as needed for nausea [facility] HYDROcodone -acetaminop hen (NORCO) 10-325 mg tablet 1 tablet 11-22 16:00: 00 11-22 15:14 :00 No 1{tbl} 1 tablet, Oral, ONCE, 1 dose, On Sat11/22/21 at 1100, Routine [facility] ondansetron (ZOFRAN (PF)) injection 4 mg 11-22 14:00: 00 11-22 13:25 :00 No 4mg 4 mg, Slow IV Push, ONCE, 1 dose, On Sat11/22/21 at 0900, Routine [facility] dicyclomine (BENTYL) 10 mg capsule 11-22 00:00: 00 05-23 00:00 :00 No [id number] 10mg Take 1 capsule by mouth every 8 (eight) hours as needed for Abdominal pain. [facility] ondansetron 4 mg disintegrat ing tablet 11-22 00:00: 00 05-23 00:00 :00 No [id number] 4mg Take 1 tablet by mouth every 8 (eight) hours as needed for Nausea and Vomiting (N/V). [facility] iopamidol (ISOVUE 370-500 mL) injection 100 mL 08-23 12:30: 00 08-23 11:19 :00 No [id number] 100mL 100 mL, Intravenou s, ONCE, 1 dose, On Sat08/23/21 at 0730, Routine [facility] diphenhydrA MINE (BENADRYL) injection 25 mg 08-23 12:15: 00 08-23 11:11 :00 No 25mg 25 mg, Slow IV Push, ONCE, 1 dose, On Sat08/23/21 at 0715, STAT [facility] maalox:diph enhydrAMINE :lidocaine 2 % viscous 1:1:1 (FIRST-MOUT [facility]) oral suspension 15 mL 08-23 12:00: 00 08-23 10:57 :00 No 15mL 15 mL, Oral, ONCE, 1 dose, On Sat08/23/21 at 0700, MICHEL [facility] FENTanyl PF (SUBLIMAZE (PF)) injection 75 mcg 08-23 12:00: 00 08-23 10:51 :00 No 75ug 75 mcg, Slow IV Push, ONCE, 1 dose, On Sat08/23/21 at 0700, STAT [facility] ondansetron (ZOFRAN (PF)) injection 4 mg 08-23 10:45: 00 08-23 09:37 :00 No 4mg 4 mg, Slow IV Push, ONCE, 1 dose, On Sat08/23/21 at 0545, MICHEL [facility] morpHINE (4 mg/mL) injection 4 mg 08-23 10:45: 00 08-23 09:37 :00 No 4mg 4 mg, Slow IV Push, ONCE, 1 dose, On Sat08/23/21 at 0545, STAT [facility] famotidine 20 mg tablet 08-23 00:00: 00 05-23 00:00 :00 No [id number] 20mg Take 1 tablet by mouth 2 (two) times daily. [facility] docusate sodium 250 mg capsule 08-23 00:00: 00 05-23 00:00 :00 No [id number] 250mg Take 1 capsule by mouth once daily as needed for Constipati on. [facility] dicyclomine 20 mg tablet 08-23 00:00: 00 11-22 00:00 :00 No [id number] 20mg Take 1 tablet by mouth 4 (four) times daily. [facility] ondansetron 4 mg disintegrat ing tablet 08-23 00:00: 00 11-22 00:00 :00 No [id number] 4mg Take 1 tablet by mouth every 4 (four) hours as needed for Nausea and Vomiting (N/V). [facility] medroxyPROG ESTERone (DEPO-PROVE RA) injection 150 mg 05-22 20:45: 00 02-12 20:04 :00 No [id number] 150mg 150 mg, Intramuscu lar, [id number], 4 doses, First dose on Sat05/22/21 at 1445, Last dose on Sat01/29/22 at 1445, Routine [facility] calcium/mag nesium/zinc (CALCIUM-MA GNESUIUM-ZI NC) 333-133-5 mg Tab 8-04 00:00: 00 Yes [id number] 1{each} Take 1 Each by mouth daily. [facility] calcium/mag nesium/zinc (CALCIUM-MA GNESUIUM-ZI NC) 333-133-5 mg Tab 8-04 00:00: 00 07-30 00:00 :00 No [id number] 1{each} Take 1 Each by mouth daily. [facility] chlorphenir amine 4 mg tablet - 00:00: 00 05-07 00:00 :00 No [id number] 4mg Take 1 tablet by mouth every 6 (six) hours as needed for Allergies or Runny nose. [facility] benzonatate 100 mg capsule 10-19 00:00: 00 05-07 00:00 :00 No [id number] 100mg Take 1 capsule by mouth 3 (three) times daily as needed for Cough. [facility] Immunizations Ordered Immunization Name Filled Immunization Name Date Status Comments Source HPV9 2022-12-04 00:00:00 Completed [facility] HPV9 2022-09-04 00:00:00 Completed [facility] HPV9 2022-09-04 00:00:00 Completed [facility] HPV9 2022-09-04 00:00:00 Completed [facility] HPV9 2022-09-04 00:00:00 Completed [facility] PPD (TB) 2012-04-25 00:00:00 Completed [facility] PPD (TB) 2012-04-25 00:00:00 Completed [facility] PPD (TB) 2012-04-25 00:00:00 Completed [facility] PPD (TB) 2012-04-25 00:00:00 Completed [facility] PPD (TB) 2012-04-25 00:00:00 Completed [facility] PPD (TB) 2012-04-25 00:00:00 Completed [facility] PPD (TB) 2012-04-25 00:00:00 Completed [facility] PPD (TB) 2012-04-25 00:00:00 Completed [facility] PPD (TB) 2012-04-25 00:00:00 Completed [facility] PPD (TB) 2012-04-25 00:00:00 Completed [facility] PPD (TB) 2012-04-25 00:00:00 Completed [facility] PPD (TB) 2012-04-25 00:00:00 Completed [facility] PPD (TB) 2012-04-25 00:00:00 Completed [facility] PPD (TB) 2012-04-25 00:00:00 Completed [facility] PPD (TB) 2012-04-25 00:00:00 Completed [facility] PPD (TB) 2012-04-25 00:00:00 Completed [facility] Influenza Virus Vaccine 2012-03-22 00:00:00 Completed [facility] Influenza Virus Vaccine 2012-03-22 00:00:00 Completed [facility] Influenza Virus Vaccine 2012-03-22 00:00:00 Completed [facility] Influenza Virus Vaccine 2012-03-22 00:00:00 Completed [facility] Influenza Virus Vaccine 2012-03-22 00:00:00 Completed [facility] Influenza Virus Vaccine 2012-03-22 00:00:00 Completed [facility] Influenza Virus Vaccine 2012-03-22 00:00:00 Completed [facility] Influenza Virus Vaccine 2012-03-22 00:00:00 Completed [facility] Influenza Virus Vaccine 2012-03-22 00:00:00 Completed [facility] Influenza Virus Vaccine 2012-03-22 00:00:00 Completed [facility] Influenza Virus Vaccine 2012-03-22 00:00:00 Completed [facility] Influenza Virus Vaccine 2012-03-22 00:00:00 Completed [facility] Influenza Virus Vaccine 2012-03-22 00:00:00 Completed [facility] Influenza Virus Vaccine 2012-03-22 00:00:00 Completed [facility] Influenza Virus Vaccine 2012-03-22 00:00:00 Completed [facility] Influenza Virus Vaccine 2012-03-22 00:00:00 Completed [facility] Rubella 2010-05-16 00:00:00 Completed [facility] Rubella 2010-05-16 00:00:00 Completed [facility] Rubella 2010-05-16 00:00:00 Completed [facility] Rubella 2010-05-16 00:00:00 Completed [facility] Rubella 2010-05-16 00:00:00 Completed [facility] Rubella 2010-05-16 00:00:00 Completed [facility] Rubella 2010-05-16 00:00:00 Completed [facility] Rubella 2010-05-16 00:00:00 Completed [facility] Rubella 2010-05-16 00:00:00 Completed [facility] Rubella 2010-05-16 00:00:00 Completed [facility] Rubella 2010-05-16 00:00:00 Completed [facility] Rubella 2010-05-16 00:00:00 Completed [facility] Rubella 2010-05-16 00:00:00 Completed [facility] Rubella 2010-05-16 00:00:00 Completed [facility] Rubella 2010-05-16 00:00:00 Completed [facility] Rubella 2010-05-16 00:00:00 Completed [facility] Td 2005-03-18 00:00:00 Completed [facility] Td 2005-03-18 00:00:00 Completed [facility] Td 2005-03-18 00:00:00 Completed [facility] Td 2005-03-18 00:00:00 Completed [facility] Td 2005-03-18 00:00:00 Completed [facility] Td 2005-03-18 00:00:00 Completed [facility] Td 2005-03-18 00:00:00 Completed [facility] TD, NOS 2005-03-18 00:00:00 Completed [facility] TD, NOS 2005-03-18 00:00:00 Completed [facility] TD, NOS 2005-03-18 00:00:00 Completed [facility] TD, NOS 2005-03-18 00:00:00 Completed [facility] TD, NOS 2005-03-18 00:00:00 Completed [facility] TD, NOS 2005-03-18 00:00:00 Completed [facility] TD, NOS 2005-03-18 00:00:00 Completed [facility] TD, NOS 2005-03-18 00:00:00 Completed [facility] TD, NOS 2005-03-18 00:00:00 Completed [facility] Hep B, Adol or Pedi Dosage 1998-05-27 00:00:00 Completed [facility] Hep B, Adol or Pedi Dosage 1998-05-27 00:00:00 Completed [facility] Hep B, Adol or Pedi Dosage 1998-05-27 00:00:00 Completed [facility] Hep B, Adol or Pedi Dosage 1998-05-27 00:00:00 Completed [facility] Hep B, Adol or Pedi Dosage 1998-04-28 00:00:00 Completed [facility] Hep B, Adol or Pedi Dosage 1998-04-28 00:00:00 Completed [facility] Hep B, Adol or Pedi Dosage 1998-04-28 00:00:00 Completed [facility] Hep B, Adol or Pedi Dosage 1998-04-28 00:00:00 Completed [facility] TD, NOS Unknown Completed [facility] Rubella Unknown Completed [facility] PPD (TB) Unknown Completed [facility] Influenza Virus Vaccine Unknown Completed [facility] TD, NOS Unknown Completed [facility] Rubella Unknown Completed [facility] PPD (TB) Unknown Completed [facility] Influenza Virus Vaccine Unknown Completed [facility] HPV9 Unknown Completed [facility] TD, NOS Unknown Completed [facility] Rubella Unknown Completed [facility] PPD (TB) Unknown Completed [facility] Influenza Virus Vaccine Unknown Completed [facility] HPV9 Unknown Completed [facility] TD, NOS Unknown Completed [facility] Rubella Unknown Completed [facility] PPD (TB) Unknown Completed [facility] Influenza Virus Vaccine Unknown Completed [facility] HPV9 Unknown Completed [facility] HPV9 Unknown Completed [facility] TD, NOS Unknown Completed [facility] Rubella Unknown Completed [facility] PPD (TB) Unknown Completed [facility] Influenza Virus Vaccine Unknown Completed [facility] HPV9 Unknown Completed [facility] HPV9 Unknown Completed [facility] TD, NOS Unknown Completed [facility] Rubella Unknown Completed [facility] PPD (TB) Unknown Completed [facility] Influenza Virus Vaccine Unknown Completed [facility] HPV9 Unknown Completed [facility] HPV9 Unknown Completed [facility] HPV9 Unknown Completed [facility] TD, NOS Unknown Completed [facility] Rubella Unknown Completed [facility] PPD (TB) Unknown Completed [facility] Influenza Virus Vaccine Unknown Completed [facility] HPV9 Unknown Completed [facility] HPV9 Unknown Completed [facility] HPV9 Unknown Completed [facility] TD, NOS Unknown Completed [facility] Rubella Unknown Completed [facility] PPD (TB) Unknown Completed [facility] Influenza Virus Vaccine Unknown Completed [facility] HPV9 Unknown Completed [facility] HPV9 Unknown Completed [facility] HPV9 Unknown Completed [facility] Vital Signs Vital Name Observation Time Observation Value Comments S ource Systolic blood pressure 2023-07-31 20:05:00 131 mm[Hg] [facility] Diastolic blood pressure 2023-07-31 20:05:00 81 mm[Hg] [facility] Heart rate 2023-07-31 20:05:00 96 /min [facility] Body temperature 2023-07-31 20:05:00 36.72 Concepcion [facility] Respiratory rate 2023-07-31 20:05:00 18 /min [facility] Body height 2023-07-31 20:05:00 149.9 cm [facility] Body weight 2023-07-31 20:05:00 84.006 kg [facility] BMI 2023-07-31 20:05:00 37.41 kg/m2 [facility] Systolic blood pressure 2023-03-29 00:29:00 116 mm[Hg] [facility] Diastolic blood pressure 2023-03-29 00:29:00 72 mm[Hg] [facility] hospital Heart rate 2023-03-29 00:29:00 85 /min [facility] Body temperature 2023-03-29 00:29:00 37.28 Concepcion [facility] Respiratory rate 2023-03-29 00:29:00 16 /min [facility] Body height 2023-03-29 00:29:00 149.9 cm [facility] Body weight 2023-03-29 00:29:00 84.369 kg [facility] BMI 2023-03-29 00:29:00 37.57 kg/m2 [facility] Oxygen saturation in Arterial blood by Pulse oximetry 2023-03-29 00:29:00 99 /min [facility] Body temperature 2023-03-19 03:00:00 38.22 Concepcion [facility] Systolic blood pressure 2023-03-19 01:37:00 117 mm[Hg] [facility] Diastolic blood pressure 2023-03-19 01:37:00 81 mm[Hg] [facility] acute hospital Heart rate 2023-03-19 01:37:00 88 /min [facility] Respiratory rate 2023-03-19 01:37:00 18 /min [facility] Body height 2023-03-19 01:37:00 149.9 cm [facility] Body weight 2023-03-19 01:37:00 84.369 kg [facility] BMI 2023-03-19 01:37:00 37.57 kg/m2 [facility] Oxygen saturation in Arterial blood by Pulse oximetry 2023-03-19 01:37:00 100 /min [facility] Systolic blood pressure 2022-12-04 20:32:00 133 mm[Hg] [facility] hospital Diastolic blood pressure 2022-12-04 20:32:00 86 mm[Hg] [facility] acute hospital Heart rate 2022-12-04 20:32:00 96 /min [facility] Body temperature 2022-12-04 20:32:00 36.17 Concepcion [facility] Respiratory rate 2022-12-04 20:32:00 18 /min [facility] Body height 2022-12-04 20:32:00 149.9 cm [facility] Body weight 2022-12-04 20:32:00 90.629 kg [facility] BMI 2022-12-04 20:32:00 40.35 kg/m2 [facility] Systolic blood pressure 2022-11-28 14:00:00 108 mm[Hg] [facility] acute hospital Diastolic blood pressure 2022-11-28 14:00:00 64 mm[Hg] General acute hospital Heart rate 2022-11-28 14:00:00 56 /min Unive [facility] Respiratory rate 2022-11-28 14:00:00 16 /min [facility] Oxygen saturation in Arterial blood by Pulse oximetry 2022-11-28 14:00:00 100 /min General acute hospital Body temperature 2022-11-28 11:37:00 37.28 Concepcion [facility] Body height 2022-11-28 11:37:00 149.9 cm [facility] Body weight 2022-11-28 11:37:00 91.173 kg [facility] BMI 2022-11-28 11:37:00 40.60 kg/m2 [facility] Systolic blood pressure 2022-11-26 21:30:00 128 mm[Hg] General acute hospital Diastolic blood pressure 2022-11-26 21:30:00 72 mm[Hg] General acute hospital Heart rate 2022-11-26 21:30:00 69 /min [facility] Respiratory rate 2022-11-26 21:30:00 12 /min [facility] Oxygen saturation in Arterial blood by Pulse oximetry 2022-11-26 21:30:00 98 /min General acute hospital Body temperature 2022-11-26 17:46:00 37.61 Concepcion [facility] Body weight 2022-11-26 17:46:00 91.173 kg [facility] BMI 2022-11-26 17:46:00 40.60 kg/m2 [facility] Systolic blood pressure 2022-09-04 20:09:00 118 mm[Hg] General acute hospital Diastolic blood pressure 2022-09-04 20:09:00 68 mm[Hg] General acute hospital Heart rate 2022-09-04 20:09:00 69 /min [facility] Body temperature 2022-09-04 20:09:00 35.5 Concepcion [facility] Respiratory rate 2022-09-04 20:09:00 18 /min [facility] Body height 2022-09-04 20:09:00 149.9 cm [facility] Body weight 2022-09-04 20:09:00 97.115 kg [facility] BMI 2022-09-04 20:09:00 43.24 kg/m2 [facility] Systolic blood pressure 2022-05-23 15:39:00 128 mm[Hg] General acute hospital Diastolic blood pressure 2022-05-23 15:39:00 59 mm[Hg] General acute hospital Heart rate 2022-05-23 15:39:00 63 /min [facility] Body temperature 2022-05-23 15:39:00 36.44 Concepcion [facility] Respiratory rate 2022-05-23 15:39:00 18 /min [facility] Body height 2022-05-23 15:39:00 149.9 cm [facility] Body weight 2022-05-23 15:39:00 98.158 kg [facility] BMI 2022-05-23 15:39:00 43.71 kg/m2 [facility] Systolic blood pressure 2022-03-26 16:30:00 108 mm[Hg] General acute hospital Diastolic blood pressure 2022-03-26 16:30:00 90 mm[Hg] General acute hospital Heart rate 2022-03-26 16:30:00 57 /min [facility] Body temperature 2022-03-26 16:30:00 36.94 Concepcion [facility] Respiratory rate 2022-03-26 16:30:00 16 /min [facility] Oxygen saturation in Arterial blood by Pulse oximetry 2022-03-26 16:30:00 95 /min General acute hospital Body height 2022-03-26 13:12:00 149.9 cm [facility] Body weight 2022-03-26 13:12:00 99.791 kg [facility] BMI 2022-03-26 13:12:00 44.43 kg/m2 [facility] Systolic blood pressure 2022-02-12 19:59:00 122 mm[Hg] General acute hospital Diastolic blood pressure 2022-02-12 19:59:00 72 mm[Hg] General acute hospital Heart rate 2022-02-12 19:59:00 66 /min [facility] Body temperature 2022-02-12 19:59:00 36.56 Concepcion [facility] Respiratory rate 2022-02-12 19:59:00 18 /min [facility] Body weight 2022-02-12 19:59:00 98.567 kg [facility] BMI 2022-02-12 19:59:00 43.89 kg/m2 [facility] Systolic blood pressure 2021-11-22 12:29:00 123 mm[Hg] General acute hospital Diastolic blood pressure 2021-11-22 12:29:00 75 mm[Hg] General acute hospital Heart rate 2021-11-22 12:29:00 63 /min [facility] Body temperature 2021-11-22 12:29:00 37 Concepcion [facility] Respiratory rate 2021-11-22 12:29:00 17 /min [facility] Body height 2021-11-22 12:29:00 149.9 cm [facility] Body weight 2021-11-22 12:29:00 99.791 kg [facility] BMI 2021-11-22 12:29:00 44.43 kg/m2 [facility] Oxygen saturation in Arterial blood by Pulse oximetry 2021-11-22 12:29:00 100 /min [facility] acute hospital Systolic blood pressure 2021-11-10 14:05:00 114 mm[Hg] General acute hospital Diastolic blood pressure 2021-11-10 14:05:00 63 mm[Hg] General acute hospital Heart rate 2021-11-10 14:05:00 61 /min [facility] Body temperature 2021-11-10 14:05:00 36.28 Concepcion [facility] Respiratory rate 2021-11-10 14:05:00 20 /min [facility] Body height 2021-11-10 14:05:00 149.9 cm [facility] Body weight 2021-11-10 14:05:00 99.791 kg [facility] BMI 2021-11-10 14:05:00 44.43 kg/m2 [facility] Systolic blood pressure 2021-08-23 12:09:57 103 mm[Hg] General acute hospital Diastolic blood pressure 2021-08-23 12:09:57 52 mm[Hg] General acute hospital Heart rate 2021-08-23 12:09:57 56 /min [facility] Respiratory rate 2021-08-23 12:09:57 16 /min [facility] Oxygen saturation in Arterial blood by Pulse oximetry 2021-08-23 12:09:57 99 /min General acute hospital Body temperature 2021-08-23 11:00:00 36.17 Concepcion [facility] Body height 2021-08-23 09:18:00 149.9 cm [facility] Body weight 2021-08-23 09:18:00 99.791 kg [facility] BMI 2021-08-23 09:18:00 44.43 kg/m2 [facility] Systolic blood pressure 2021-08-15 18:59:00 120 mm[Hg] General acute hospital Diastolic blood pressure 2021-08-15 18:59:00 66 mm[Hg] General acute hospital Heart rate 2021-08-15 18:59:00 63 /min [facility] Body temperature 2021-08-15 18:59:00 36.89 Concepcion [facility] Respiratory rate 2021-08-15 18:59:00 20 /min [facility] Body height 2021-08-15 18:59:00 149.9 cm [facility] Body weight 2021-08-15 18:59:00 101.878 kg [facility] BMI 2021-08-15 18:59:00 45.36 kg/m2 [facility] Systolic blood pressure 2021-05-22 20:29:00 104 mm[Hg] General acute hospital Diastolic blood pressure 2021-05-22 20:29:00 77 mm[Hg] General acute hospital Heart rate 2021-05-22 20:29:00 74 /min [facility] Body temperature 2021-05-22 20:29:00 35.78 Concepcion [facility] Respiratory rate 2021-05-22 20:29:00 18 /min [facility] Body height 2021-05-22 20:29:00 149.9 cm [facility] Body weight 2021-05-22 20:29:00 102.059 kg [facility] BMI 2021-05-22 20:29:00 45.44 kg/m2 [facility] Systolic blood pressure 2021-05-07 18:52:00 119 mm[Hg] General acute hospital Diastolic blood pressure 2021-05-07 18:52:00 64 mm[Hg] General acute hospital Heart rate 2021-05-07 18:52:00 80 /min [facility] Body temperature 2021-05-07 18:52:00 36.83 Concepcion [facility] Respiratory rate 2021-05-07 18:52:00 16 /min [facility] Body height 2021-05-07 18:52:00 149.9 cm [facility] Body weight 2021-05-07 18:52:00 100.699 kg [facility] BMI 2021-05-07 18:52:00 44.84 kg/m2 [facility] Procedures Procedure Date / Time Performed Performing Clinician Source GARDASIL 9 (HPV 9V) VACCINE 2023-07-31 20:34:42 Gracie Grande [facility] POCT TEST 2023-07-31 20:18:00 Sandra Damon [facility] CONSENT/REFUSAL FOR DIAGNOSIS AND TREATMENT 2023-03-29 00:23:02 Doctor Unassigned, [place] [facility] ASSIGNMENT OF BENEFITS 2023-03-19 02:52:28 Docto r Unassigned, [place] [facility] RAPID INFLUENZA A/B 2023-03-19 01:56:00 Ruperto Flannery [facility] CONSENT/REFUSAL FOR DIAGNOSIS AND TREATMENT 2023-03-19 01:31:46 Doctor Unassigned, [place] [facility] GARDASIL 9 (HPV 9V) VACCINE 2022-12-04 20:41:17 Gracie Grande [facility] LIPASE 2022-11-28 13:22:00 Aime Boyce [facility] COMP. METABOLIC PANEL ([id number]) 2022-11-28 13:22:00 Aime Boyce [facility] URINE DRUG (IMMUNOASSAY) - COMPREHENSIVE DRUG SCREEN 2022-11-28 13:22:00 Makenzie Flannery [facility] CBC WITH DIFF 2022-11-28 13:22:00 Aime Boyce [facility] URINALYSIS 2022-11-28 13:22:00 Aime Boyce [facility] ASSIGNMENT OF BENEFITS 2022-11-28 12:37:00 Chayito rider Unassigned, [place] [facility] CONSENT/REFUSAL FOR DIAGNOSIS AND TREATMENT 2022-11-28 11:34:27 Doctor Unassigned, [place] [facility] CT ABDOMEN PELVIS W CONTRAST 2022-11-26 20:19:09 Alison Sullivan [facility] POCT TEST 2022-11-26 19:51:00 Karuna Sullivan [facility] LIPASE 2022-11-26 19:02:00 [facility] MET[facility]OLIC PANEL ([id number]) 2022-11-26 19:02:00 Alison Sullivan [facility] CBC WITH DIFF 2022-11-26 19:02:00 [facility] 2022-11-26 19:02:00 Alison Sullivan Un [facility] CONSENT/REFUSAL FOR DIAGNOSIS AND TREATMENT 2022-11-26 17:32:05 Doctor Unassigned, [place] [facility] GARDASIL 9 (HPV 9V) VACCINE 2022-09-04 20:34:06 Gracie Grande [facility] GC & CHLAMYDIA AMPLIFIED ASSAY 2022-05-23 16:45:00 Gracie Grande [facility] HIV 1/2 AG-AB WITH REFLEX 2022-05-23 16:45:00 Gracie Grande [facility] TRICHOMONAS AMPLIFIED ASSAY 2022-05-23 16:45:00 Gracie Grande [facility] SYPHILIS IGG/IGM 2022-05-23 16:45:00 Leni Grande [facility] POCT TEST 2022-05-23 15:40:00 Hugo Grande [facility] ASSIGNMENT OF BENEFITS 2022-05-23 15:14:29 Docto r Unassigned, [place] [facility] CT ABDOMEN PELVIS W CONTRAST 2022-03-26 14:43:45 Walt Workman [facility] LIPASE 2022-03-26 13:49:00 Walt Workman [facility] TEST, SERUM 2022-03-26 13:49:00 Avery Workman [facility] COMP. METABOLIC PANEL ([id number]) 2022-03-26 13:49:00 Walt Workman [facility] CBC WITH DIFF 2022-03-26 13:49:00 [facility] 2022-03-26 13:49:00 Walt Workman [facility] CT ABDOMEN PELVIS WO CONTRAST 2021-11-22 14:17:12 Mauri Yanez [facility] POCT TEST 2021-11-22 13:27:00 Juliet Yanez [facility] LIPASE 2021-11-22 13:15:00 Mauri Yanez [facility] COMP. METABOLIC PANEL ([id number]) 2021-11-22 13:15:00 Mauri Yanez [facility] CBC WITH DIFF 2021-11-22 13:15:00 Mauri Yanez [facility] URINALYSIS 2021-11-22 13:15:00 Mauri Yanez [facility] CONSENT/REFUSAL FOR DIAGNOSIS AND TREATMENT 2021-11-22 12:28:54 Doctor Unassigned, [place] [facility] CT ABDOMEN PELVIS W CONTRAST 2021-08-23 11:21:00 Kyara Morfin [facility] POCT TEST 2021-08-23 09:40:00 Jen Morfin [facility] LIPASE 2021-08-23 09:39:00 Kyara Morfin [facility] COMP. METABOLIC PANEL ([id number]) 2021-08-23 09:39:00 Kyara Morfin [facility] CBC WITH DIFF 2021-08-23 09:39:00 Kyara Morfin [facility] PROTHROMBIN TIME / INR 2021-08-23 09:39:00 Reinaldo Morfin [facility] ACTIVATED PARTIAL THRMPLAS MARINE 2021-08-23 09:39:00 Kyara Morfin [facility] NOTICE OF PRIVACY PRACTICES 2021-08-23 09:08:09 Doctor Unassigned, [place] [facility] CONSENT/REFUSAL FOR DIAGNOSIS AND TREATMENT 2021-08-23 09:07:52 Doctor Unassigned, [place] [facility] POCT TEST 2021-05-22 20:30:00 Hugo Grande [facility] POCT TEST 2021-05-07 19:23:00 Beau Vargas [facility] Encounters Start Date/Time End Date/Time Encounter Type Admission Type Attending Clinicians Care Facility Care Department Encounter ID Source 2021-01-16 21:25:24 Emergency [facility] [id number] [facility] 2021-01-16 13:07:29 Emergency [facility] [id number] [facility] 2021-01-16 12:48:35 Emergency [facility] [id number] [facility] 2023-08-29 16:00:00 2023-08-29 16:00:00 Outpatient VIMAL CARRILLO [id number] Haley Alexandre 2023-07-31 00:00:00 2023-07-31 17:07:25 Telephone Gracie Grande [facility] 1..840.114 350.1.13.10 4.2.7.2.686 [id number] [facility] 2023-07-31 14:45:00 2023-07-31 15:40:15 Outpatient R PAULA ADMON [facility] [id number] [facility] 2023-07-31 14:45:00 2023-07-31 15:40:15 Office Visit Paula Damon [facility] 1..840.114 350.1.13.10 4.2.7.2.686 [id number] [facility] 2023-04-23 14:00:00 2023-04-23 14:00:00 Outpatient R [facility] [id number] [facility] 2023-03-28 18:32:00 2023-03-28 20:11:00 Emergency MICHAEL KEITH [facility] ERT [id number] [facility] 2023-03-28 18:32:00 2023-03-28 20:11:00 Emergency Mauri Yanez Ericca D [facility] 1..840.114 350.1.13.10 4.2.7.2.686 [id number] [facility] 2023-03-26 13:00:00 2023-03-26 13:00:00 Outpatient R [facility] [id number] [facility] 2023-03-18 19:40:00 2023-03-18 21:05:00 Emergency X MAKENZIE FLANNERY [facility] ERT [id number] [facility] 2023-03-18 19:40:00 2023-03-18 21:05:00 Emergency Makenzie Flannery [facility] 1.2840.114 350.1.13.10 4.2.7.2.686 [id number] [facility] 2023-03-05 15:30:00 2023-03-05 15:30:00 Outpatient R [facility] [id number] [facility] 2022-12-04 15:30:00 2022-12-04 15:46:42 Outpatient R GRACIE GRANDE [facility] [id number] [facility] 2022-12-04 15:30:00 2022-12-04 15:46:42 Nurse Visit Visit, Ang-Rmchp Nurse Gracie Grande [facility] 1.840.114 350.1.13.10 4.2.7.2.686 [id number] [facility] 2022-12-03 00:00:00 2022-12-03 00:00:00 Patient Secure Msg Doctor Unassigned, [place] [facility] 1.2840.114 350.1.13.10 4.2.7.2.686 [id number] [facility] 2022-11-29 00:00:00 2022-11-29 00:00:00 Patient Secure Msg Doctor Unassigned, [place] [facility] 1.2840.114 350.1.13.10 4.2.7.2.686 [id number] [facility] 2022-11-28 06:39:00 2022-11-28 10:00:00 Emergency X MAKENZIE FLANNERY [facility] ERT [id number] [facility] 2022-11-28 06:39:00 2022-11-28 10:00:00 Emergency Makenzie Flannery [facility] 1..840.114 350.1.13.10 4.2.7.2.686 [id number] [facility] 2022-11-27 15:30:00 2022-11-27 15:30:00 Outpatient R [facility] [id number] [facility] 2022-11-26 12:48:00 2022-11-26 16:41:00 Emergency X ALISON SULLIVAN [facility] ERT [id number] [facility] 2022-11-26 12:48:00 2022-11-26 16:41:00 Emergency Alison Sullivan [facility] 1..840.114 350.1.13.10 4.2.7.2.686 [id number] [facility] 2022-10-25 13:30:00 2022-10-25 13:30:00 Outpatient R GRACIE GRANDE [facility] [id number] [facility] 2022-10-12 15:30:00 2022-10-12 15:30:00 Outpatient R [facility] [id number] [facility] 2022-10-12 13:00:00 2022-10-12 13:00:00 Outpatient R [facility] [id number] [facility] 2022-09-04 15:30:00 2022-09-04 15:31:14 Outpatient R GRACIE GRANDE [facility] [id number] [facility] 2022-09-04 15:30:00 2022-09-04 15:31:14 Nurse Visit Visit, Ang-Rmchp Gracie Vega [facility] 1..840.114 350.1.13.10 4.2.7.2.686 [id number] [facility] 2022-08-15 13:30:00 2022-08-15 13:30:00 Outpatient R GRACIE GRANDE [facility] [id number] [facility] 2022-05-23 09:30:00 2022-05-23 10:49:56 Outpatient R GRACIE GRANDE [facility] [id number] [facility] 2022-05-23 09:30:00 2022-05-23 10:49:56 Office Visit Gracie Grande [facility]NAL & [facility]ILD [facility] 1..840.114 350.1.13.10 4.2.7.2.686 [id number] [facility] 2022-05-23 00:00:00 2022-05-23 00:00:00 Orders Only Doctor Unassigned, [place] [facility] 1..840.114 350.1.13.10 4.2.7.2.686 [id number] [facility] 2022-05-11 16:00:00 2022-05-11 16:00:00 Outpatient R GRACIE GRANDE [facility] [id number] [facility] 2022-05-11 16:00:00 2022-05-11 16:00:00 Outpatient R GRACIE GRANDE [facility] [id number] [facility] 2022-05-09 00:00:00 2022-05-09 00:00:00 Telephone Sarah Beth Vargas [facility]NAL & [facility]ILD [facility] 1..840.114 350.1.13.10 4.2.7.2.686 [id number] [facility] 2022-05-08 13:00:00 2022-05-08 13:00:00 Outpatient R GRACIE GRANDE [facility] [id number] [facility] 2022-03-27 00:00:00 2022-03-27 00:00:00 Patient Secure Msg Doctor Unassigned, [place] [facility] 1.84.114 350.1.13.10 4.2.7.2.686 [id number] [facility] 2022-03-26 07:10:00 2022-03-26 11:15:00 Emergency X WALT WORKMAN [facility] ERT [id number] [facility] 2022-03-26 07:10:00 2022-03-26 11:15:00 Emergency Walt Workman [facility] 1.84.114 350.1.13.10 4.2.7.2.686 [id number] [facility] 2022-02-12 13:30:00 2022-02-12 13:45:52 Outpatient GRACIE MADRIGAL [facility] [id number] [facility] 2022-02-12 13:30:00 2022-02-12 13:45:52 Nurse Visit Visit, Ang-Rmchp Nurse Gracie Grande [facility] 1.84.114 350.1.13.10 4.2.7.2.686 [id number] [facility] 2021-12-11 10:00:00 2021-12-11 10:00:00 Outpatient KYLIE PUGH [facility] [id number] [facility] 2021-11-22 07:34:00 2021-11-22 10:19:00 Emergency MAURI MURRAY [facility] ERT [id number] [facility] 2021-11-22 07:34:00 2021-11-22 10:19:00 Emergency Mauri Yanez [facility] 1.84.114 350.1.13.10 4.2.7.2.686 [id number] [facility] 2021-11-10 08:30:00 2021-11-10 09:08:05 Nurse Visit Visit, Gracie Ellington [facility]NAL [facility]ILD [facility] 1.2.840.114 350.1.13.10 4.2.7.2.686 [id number] [facility] 2021-11-10 08:30:00 2021-11-10 08:30:00 Outpatient GRACIE MADRIGAL [facility] [id number] [facility] 2021-11-07 14:00:00 2021-11-07 14:00:00 Outpatient SARAH BETH FELIX [facility] [id number] [facility] 2021-08-23 04:13:00 2021-08-23 07:11:00 Emergency X KYARA MORFIN [facility] ERT [id number] [facility] 2021-08-23 04:13:00 2021-08-23 07:11:00 Emergency Kyara Morfin [facility] 1..840.114 350.1.13.10 4.2.7.2.686 [id number] [facility] 2021-08-15 14:00:00 2021-08-15 14:18:26 Nurse Visit Visit, Gracie Ellington [facility] 1..840.114 350.1.13.10 4.2.7.2.686 [id number] [facility] 2021-08-15 14:00:00 2021-08-15 14:00:00 Outpatient GRACIE MADRIGAL [facility] [id number] [facility] 2021-05-22 14:00:00 2021-05-22 14:46:37 Outpatient SARAH BETH FELIX [facility] [id number] [facility] 2021-05-22 14:00:00 2021-05-22 14:46:37 Nurse Visit Visit, Claudiap Nurse Sarah Beth Vargas [facility] 1.840.114 350.1.13.10 4.2.7.2.686 [id number] [facility] 2021-05-07 12:30:00 2021-05-07 13:16:42 Office Visit Vargas, Rosjeffreyjosiehernan Rider [facility] 1.840.114 350.1.13.10 4.2.7.2.686 [id number] [facility] 2021-05-07 12:30:00 2021-05-07 13:16:42 Outpatient R VARGASSARAH BETH [facility] [id number] [facility] 2021-05-07 12:30:00 2021-05-07 12:30:00 Outpatient R VARGAS DINAMANI [facility] [id number] [facility] 2021-05-04 10:30:00 2021-05-04 10:30:00 Outpatient R GRACIE GRANDE [facility] [id number] [facility] 2021-03-01 10:30:00 2021-03-01 10:30:00 Outpatient R GRACIE GRANDE [facility] [id number] [facility] 2021-02-24 13:00:00 2021-02-24 13:00:00 Outpatient R AMEE MARION [facility] [id number] [facility] 2020-12-01 13:06:11 2020-12-01 13:31:56 Nurse Visit Visit, RadhaRmp Nurse Vargas Dinamani Rider [facility] 1.840.114 350.1.13.10 4.2.7.2.686 [id number] [facility] 2020-12-01 13:00:00 2020-12-01 13:00:00 Outpatient R [facility] [id number] [facility] 2020-12-01 13:00:00 2020-12-01 13:00:00 Outpatient SARAH BETH FELIX [facility] [id number] [facility] 2020-11-24 08:48:00 2020-11-24 11:40:00 Emergency Mauri Yanez [facility] ..840.114 350.1.13.10 4.2.7.2.686 [id number] [facility] 2020-09-08 13:00:00 2020-09-08 13:00:00 Outpatient R [facility] [id number] [facility] 2020-06-16 10:00:00 2020-06-16 10:00:00 Outpatient R VARGASSARAH BETH [facility] [id number] [facility] 2020-06-15 08:30:00 2020-06-15 08:30:00 Outpatient Adry VARGAS SARAH BETH [facility] [id number] [facility] 2020-06-08 15:30:00 2020-06-08 15:30:00 Outpatient R [facility] [id number] [facility] 2020-03-16 15:19:49 2020-03-16 15:34:14 Nurse Visit Visit, Shemar-Rmchp Nurse [facility] 1..[id number] 2020-03-16 15:00:00 2020-03-16 15:00:00 Outpatient R GRACIE GRANDE [facility] [facility] [id number] [facility] 2020-03-16 15:00:00 2020-03-16 15:00:00 Outpatient [facility] [id number] [facility] 2019-12-23 15:21:11 2019-12-23 16:17:47 Office Visit Sarah Beth Vargas Adry [facility] 1.2.840.114 350.1.13.10 4.2.7.2.686 [id number] 2019-12-23 15:00:00 2019-12-23 15:00:00 Outpatient R VARGASSARAH [facility] [id number] [facility] Results Test Description Test Time Test Comments Results Result Co mments Source [facility] [id number] 20:18:00* Test Item Value Reference Range Interpretation Comme nts POCT PREG (test code = 1605) Negative On board controls acceptable with C Line (test code = 3574) Yes POCT PREG LOT # (test code = 3575) POCT PREG TEST DATE ( test code = 3576) [facility] MET[facility]OLIC PANEL (01627)2022-11-28 14:29:35* Test Item Value Reference Range Interpretation Comme nts NA (test code = 0589523876) 140 mmol/L 135-145 K (test code = 0856341469) 3.8 mmol/L 3.5-5.0 CL (test code = 0462841657) 110 mmol/L 98-108 H CO2 TOTAL (test code = 1001908637) 25 mmol/L 23-31 AGAP (test code = 7019446415) 5 2-16 BUN (test code = 6667279782) 9 mg/dL 7-23 GLUCOSE (test code = 3121946917) 98 mg/dL 70-110 CREATININE (test code = 3409414225) 0.55 mg/dL 0.50-1.04 TOTAL BILI (test code = 1974474363) 0.3 mg/dL 0.1-1.1 CALCIUM (test code = 7639199951) 8.7 mg/dL 8.6-10.6 T PROTEIN (test code = 6101057717) 7.3 g/dL 6.3-8.2 ALBUMIN (test code = 8219959571) 4.1 g/dL 3.5-5.0 ALK PHOS (test code = 0876863286) 60 U/L 34-122 ALTv (test code = 1742-6) 22 U/L 5-35 AST(SGOT) (test code = 7610490393) 86 U/L 13-40 H eGFR (test code = 3973254859) 128.9 mL/min/1.73m2 RIKKI (test code = RIKKI) Association of [...] or abnormalities in imaging tests). Lab Interpretation (test code = 70098-2) [facility] 14:29:14* Test Item Value Reference Range Interpretation Comme nts LIPASE (test code = 6353435289) 90 U/L 0-220 Lab Interpretation (test cod e = 68389-3) Normal [facility] WITH [id number] 13:57:53* Test Item Value Reference Range Interpretation Comme nts WBC (test code = 6690-2) 7.17 See_Comment [Automated messa ge] The system which generated this result transmitted reference range: 4.30 - 11.10 10*3/?L. The reference range was not used to interpret this result as normal/abnormal. RBC (test code = 789-8) 4.70 See_Comment [Automated messa ge] The system which generated this result transmitted reference range: 3.93 - 5.25 10*6/?L. The reference range was not used to interpret this result as normal/abnormal. HGB (test code = 718-7) 11.9 g/dL 11.6-15.0 HCT (test code = 4544-3) 37.5 % 35.7-45.2 MCV (test code = 787-2) 79.8 fL 80.6-95.5 L MCH (test code = 785-6) 25.3 pg 25.9-32.8 L MCHC (test code = 786-4) 31.7 g/dL 31.6-35.1 RDW-SD (test code = 04382-8) 39.8 fL 39.0-49.9 RDW-CV (test code = 788-0) 13.8 % 12.0-15.5 PLT (test code = 777-3) 416 See_Comment H [Automated messa ge] The system which generated this result transmitted reference range: 166 - 358 10*3/?L. The reference range was not used to interpret this result as normal/abnormal. MPV (test code = 70629-3) 10.0 fL 9.5-12.9 NRBC/100 WBC (test code = 8041757989) 0.0 See_Comment [Automated [employer] ssage] The system which generated this result transmitted reference range: 0.0 - 10.0 /100 WBCs. The reference range was not used to interpret this result as normal/abnormal. NRBC x10^3 (test code = 9598300288) See_Comment [Automated 365neta ge] The system which generated this result transmitted reference range: 10*3/?L. The reference range was not used to interpret this result as normal/abnormal. GRAN MAT (NEUT) % (test code = 770-8) 47.5 % IMM GRAN % (test code = 7668483803) 0.30 % LYMPH % (test code = 736-9) 45.0 % MONO % (test code = 5905-5) 5.7 % EOS % (test code = 713-8) 1.1 % BASO % (test code = 706-2) 0.4 % GRAN MAT x10^3(ANC) (test code = 6757825761) 3.40 10*3/uL 1.88-7.09 IMM GRAN x10^3 (test code = 9962951871) 0.00-0.06 LYMPH x10^3 (test code = 731-0) 3.23 10*3/uL 1.32-3.29 MONO x10^3 (test code = 742-7) 0.41 10*3/uL 0.33-0.92 EOS x10^3 (test code = 711-2) 0.08 10*3/uL 0.03-0.39 BASO x10^3 (test code = 704-7) 0.03 10*3/uL 0.01-0.07 Lab Interpretation (test code = 79218-0) [facility]normal [facility] [id number] 19:51:00* Test Item Value Reference Range Interpretation Comme nts POCT PREG (test code = 1605) Negative On board controls acceptable with C Line (test code = 3574) Yes POCT PREG LOT # (test code = 3575) [id number] POCT PREG TEST DATE ( test code = 3576) 03/20/2024 Lab Interpretation (test cod e = 55673-7) Normal [facility] Hospital[facility]IS IGG/[id number] 17:01:06* Test Item Value Reference Range Interpretation Comme nts Syphilis IgG/IgM (test code = 98070-7) Non-reactive Non-reactive RIKKI (test code = RIKKI) Non-reactive - No serologic evidence of T. pallidum infection. Cannot exclude incubating or early syphilis. Submit a second specimen in 2-4 weeks if syphilis is clinically suspected. Equivocal - Further testing to follow. Reactive - Further testing to follow. Lab Interpretation (test code = 04440-5) Normal [facility] IGG/[id number] 17:01:06* Test Item Value Reference Range Interpretation Comme nts Syphilis IgG/IgM (test code = 68333-6) Non-reactive Non-reactive RIKKI (test code = RIKKI) Non-reactive - No serologic evidence of T. pallidum infection. Cannot exclude incubating or early syphilis. Submit a second specimen in 2-4 weeks if syphilis is clinically suspected. Equivocal - Further testing to follow. Reactive - Further testing to follow. Lab Interpretation (test code = 75346-0) Normal [facility] 1/2 AG-AB WITH [id number] 09:02:44* Test Item Value Reference Range Interpretation Comme nts HIV Semi-quantitative (test code = 78439-1) 0.07 Negative RIKKI (test code = RIKKI) Non-reactive for HIV-1 antigen and HIV-1/HIV-2 antibodies. ?No laboratory evidence of HIV infection. ?Repeat in 2-4 weeks if acute HIV infection is suspected. [facility] 1/2 AG-AB WITH [id number] 09:02:44* Test Item Value Reference Range Interpretation Comme nts HIV Semi-quantitative (test code = 85847-8) 0.07 Negative RIKKI (test code = RIKKI) Non-reactive for HIV-1 antigen and HIV-1/HIV-2 antibodies. ?No laboratory evidence of HIV infection. ?Repeat in 2-4 weeks if acute HIV infection is suspected. [facility] [id number] 15:40:00* Test Item Value Reference Range Interpretation Comme nts POCT PREG (test code = 1605) Negative On board controls acceptable with C Line (test code = 3574) Yes POCT PREG LOT # (test code = 3575) POCT PREG TEST DATE ( test code = 3576) [facility] [id number] 15:40:00* Test Item Value Reference Range Interpretation Comme nts POCT PREG (test code = 1605) Negative On board controls acceptable with C Line (test code = 3574) Yes POCT PREG LOT # (test code = 3575) POCT PREG TEST DATE ( test code = 3576) [facility]. METABOLIC PANEL (33203)2021-11-22 14:18:51* Test Item Value Reference Range Interpretation Comme nts NA (test code = 7999178269) 140 mmol/L 135-145 K (test code = 4752562845) 4.0 mmol/L 3.5-5 CL (test code = 8704606592) 108 mmol/L 98-108 CO2 TOTAL (test code = 4441267433) 23 mmol/L 23-31 AGAP (test code = 5800283923) 2-16 BUN (test code = 4305987825) 12 mg/dL 7-23 GLUCOSE (test code = 1144196047) 122 mg/dL 70-110 H CREATININE (test code = 4551031065) 0.63 mg/dL 0.5-1.04 TOTAL BILI (test code = 6931880648) 0.2 mg/dL 0.1-1.1 CALCIUM (test code = 9123236511) 9.3 mg/dL 8.6-10.6 T PROTEIN (test code = 4086636726) 6.8 g/dL 6.3-8.2 ALBUMIN (test code = 4063776986) 4.3 g/dL 3.5-5 ALK PHOS (test code = 8331448384) 56 U/L 34-122 ALTv (test code = 1742-6) 17 U/L 5-35 AST(SGOT) (test code = 6996524652) 20 U/L 13-40 eGFR (test code = 4234403206) mL/min/1.73m2 RIKKI (test code = RIKKI) Association of [...] or abnormalities in imaging tests). Lab Interpretation (test code = 20121-2) [facility] 14:18:31* Test Item Value Reference Range Interpretation Comme nts LIPASE (test code = 6144752564) 133 U/L 0-220 Lab Interpretation (test cod e = 46980-4) [facility] WITH [id number] 13:34:51* Test Item Value Reference Range Interpretation Comme nts WBC (test code = 6690-2) See_Comment [Automated 365neta ge] The system which generated this result transmitted reference range: 4.30 - 11.10 10*3/?L. The reference range was not used to interpret this result as normal/abnormal. RBC (test code = 789-8) See_Comment [Automated 365neta ge] The system which generated this result transmitted reference range: 3.93 - 5.25 10*6/?L. The reference range was not used to interpret this result as normal/abnormal. HGB (test code = 718-7) 11.7 g/dL 11.6-15 HCT (test code = 4544-3) 36.9 % 35.7-45.2 MCV (test code = 787-2) 78.3 fL 80.6-95.5 L MCH (test code = 785-6) 24.8 pg 25.9-32.8 L MCHC (test code = 786-4) 31.7 g/dL 31.6-35.1 RDW-SD (test code = 60780-0) 39.5 fL 39-49.9 RDW-CV (test code = 788-0) 13.8 % 12-15.5 PLT (test code = 777-3) See_Comment H [Automated messa ge] The system which generated this result transmitted reference range: 166 - 358 10*3/?L. The reference range was not used to interpret this result as normal/abnormal. MPV (test code = 84370-2) 9.9 fL 9.5-12.9 NRBC/100 WBC (test code = 8712695073) See_Comment [Automated [employer] ssage] The system which generated this result transmitted reference range: 0.0 - 10.0 /100 WBCs. The reference range was not used to interpret this result as normal/abnormal. NRBC x10^3 (test code = 8650448577) See_Comment [Automated messa ge] The system which generated this result transmitted reference range: 10*3/?L. The reference range was not used to interpret this result as normal/abnormal. GRAN MAT (NEUT) % (test code = 770-8) 53.2 % IMM GRAN % (test code = 3881794947) 0.30 % LYMPH % (test code = 736-9) 39.9 % MONO % (test code = 5905-5) 4.8 % EOS % (test code = 713-8) 1.4 % BASO % (test code = 706-2) 0.4 % GRAN MAT x10^3(ANC) (test code = 7996188882) 3.80 10*3/uL 1.88-7.09 IMM GRAN x10^3 (test code = 6019812057) 0-0.06 LYMPH x10^3 (test code = 731-0) 2.85 10*3/uL 1.32-3.29 MONO x10^3 (test code = 742-7) 0.34 10*3/uL 0.33-0.92 EOS x10^3 (test code = 711-2) 0.10 10*3/uL 0.03-0.39 BASO x10^3 (test code = 704-7) 0.03 10*3/uL 0.01-0.07 Lab Interpretation (test code = 00367-8) Abnormal [facility] [id number] 13:27:00* Test Item Value Reference Range Interpretation Comme nts POCT PREG (test code = 1605) negative On board controls acceptable with C Line (test code = 3574) present POCT PREG LOT # (test code = 3575) [id number] POCT PREG TEST DATE ( test code = 3576) Lab Interpretation (test cod e = 95595-1) Normal [facility] WITH [id number] 10:25:39* Test Item Value Reference Range Interpretation Comme nts WBC (test code = 6690-2) See_Comment [Automated messa ge] The system which generated this result transmitted reference range: 4.30 - 11.10 10*3/?L. The reference range was not used to interpret this result as normal/abnormal. RBC (test code = 789-8) See_Comment [Automated messa ge] The system which generated this result transmitted reference range: 3.93 - 5.25 10*6/?L. The reference range was not used to interpret this result as normal/abnormal. HGB (test code = 718-7) 11.2 g/dL 11.6-15.0 L HCT (test code = 4544-3) 35.9 % 35.7-45.2 MCV (test code = 787-2) 78.9 fL 80.6-95.5 L MCH (test code = 785-6) 24.6 pg 25.9-32.8 L MCHC (test code = 786-4) 31.2 g/dL 31.6-35.1 L RDW-SD (test code = 45156-9) 40.5 fL 39.0-49.9 RDW-CV (test code = 788-0) 14.0 % 12.0-15.5 PLT (test code = 777-3) See_Comment H [Automated messa ge] The system which generated this result transmitted reference range: 166 - 358 10*3/?L. The reference range was not used to interpret this result as normal/abnormal. MPV (test code = 30138-0) 9.6 fL 9.5-12.9 NRBC/100 WBC (test code = 0057602819) See_Comment [Automated me ssage] The system which generated this result transmitted reference range: 0.0 - 10.0 /100 WBCs. The reference range was not used to interpret this result as normal/abnormal. NRBC x10^3 (test code = 1211918644) <0.01 See_Comment [Automated messa ge] The system which generated this result transmitted reference range: 10*3/?L. The reference range was not used to interpret this result as normal/abnormal. GRAN MAT (NEUT) % (test code = 770-8) 38.0 % IMM GRAN % (test code = 9927757434) 0.10 % LYMPH % (test code = 736-9) 53.8 % MONO % (test code = 5905-5) 6.2 % EOS % (test code = 713-8) 1.6 % BASO % (test code = 706-2) 0.3 % GRAN MAT x10^3(ANC) (test code = 7659487590) 2.84 10*3/uL 1.88-7.09 IMM GRAN x10^3 (test code = 9644922263) <0.03 0.00-0.06 LYMPH x10^3 (test code = 731-0) 4.02 10*3/uL 1.32-3.29 H MONO x10^3 (test code = 742-7) 0.46 10*3/uL 0.33-0.92 EOS x10^3 (test code = 711-2) 0.12 10*3/uL 0.03-0.39 BASO x10^3 (test code = 704-7) <0.03 0.01-0.07 Lab Interpretation (test code = 44969-5) Abnormal [facility]. METABOLIC PANEL (82822)2021-08-23 10:10:54* Test Item Value Reference Range Interpretation Comme nts NA (test code = 0449389608) 142 mmol/L 135-145 K (test code = 2557720848) 3.7 mmol/L 3.5-5.0 CL (test code = 3006488359) 107 mmol/L 98-108 CO2 TOTAL (test code = 3535908934) 25 mmol/L 23-31 AGAP (test code = 6066772285) 2-16 BUN (test code = 4062857211) 9 mg/dL 7-23 GLUCOSE (test code = 7235432872) 114 mg/dL 70-110 H CREATININE (test code = 8005901940) 0.64 mg/dL 0.50-1.04 TOTAL BILI (test code = 0773662611) 0.3 mg/dL 0.1-1.1 CALCIUM (test code = 3356729685) 8.5 mg/dL 8.6-10.6 L T PROTEIN (test code = 5015341021) 6.4 g/dL 6.3-8.2 ALBUMIN (test code = 7835560214) 3.6 g/dL 3.5-5.0 ALK PHOS (test code = 3585157231) 51 U/L 34-122 ALTv (test code = 1742-6) 12 U/L 5-35 AST(SGOT) (test code = 2261474569) 18 U/L 13-40 eGFR (test code = 5004011722) mL/min/1.73m2 RIKKI (test code = RIKKI) Association of [...] or abnormalities in imaging tests). Lab Interpretation (test code = 43895-4) [facility] 10:09:53* Test Item Value Reference Range Interpretation Comme [facility] LIPASE (test code = 1564109392) 138 U/L 0-220 Lab Interpretation (test cod e = 93122-3) Normal [facility] HospitalACTIVATED PARTIAL THRMPLAS [id number] 10:04:31* Test Item Value Reference Range Interpretation Comme [facility] APTT Patient (test code = 3173-2) See_Comment [Automated message] The system which generated this result transmitted reference range: 23 - 38 Seconds. The reference range was not used to interpret this result as normal/abnormal. RIKKI (test code = RIKKI) The [facility] patient population mean normal value for aPTT is 30 seconds. Lab Interpretation (test code = 80941-4) Normal [facility] HospitalPROTHROMBIN TIME / [id number] 10:02:30* Test Item Value Reference Range Interpretation Comme [facility] PROTIME PATIENT (test code = 5964-2) See_Comment [Automated messa ge] The system which generated this result transmitted reference range: 12.0 - 14.7 Seconds. The reference range was not used to interpret this result as normal/abnormal. INR (test code = 6301-6) Normal INR <1.1; Warfarin Therapeutic range 2.0 to 3.0 or 2.5 to 3.5, depending upon the indications. Lab Interpretation (test code = 74780-8) Normal [facility] [id number] 09:40:00* Test Item Value Reference Range Interpretation Comme [facility] POCT PREG (test code = 1605) Negative On board controls acceptable with C Line (test code = 3574) Positive POCT PREG LOT # (test code = 3575) [id number] POCT PREG TEST DATE ( test code = 3576) 12/15/2022 Lab Interpretation (test cod e = 53724-4) Normal [facility] [id number] 20:30:00* Test Item Value Reference Range Interpretation Comme [facility] POCT PREG (test code = 1605) Negative On board controls acceptable with C Line (test code = 3574) Yes POCT PREG LOT # (test code = 3575) POCT PREG TEST DATE ( test code = 3576) [facility] [id number] 19:23:00* Test Item Value Reference Range Interpretation Comme nts POCT PREG (test code = 1605) Negative On board controls acceptable with C Line (test code = 3574) Yes POCT PREG LOT # (test code = 3575) POCT PREG TEST DATE ( test code = 3576) [facility] Notes Date/Time Note Provider Source 2023-07-31 17:07:17 9813-14-36I89:07:17F ormatting of this note might be different from the original.Noted. 93426-3Ynujkmuqd encounter YfhyWB9916-55-49N08:07:25Telephon e encounter NoteTXT1.2.840.526482.1.13.104.2. 7.2.320060|[id number] for patient ufpa86307-5MxnqFWJOQFOSLPMJvuomen ed C-CDA narrative [id number] Garcia [address] Gj[id number] 294EMVCFJAMPNZPARSIZGURSV2175-31- 15T17:07:251.2.840.584125.1.72.3. 15|1.2.840.988624.1.13.104.2.7.2. [id number] Yaa Shaver ADMISSIONS NURSE [facility] 2023-07-31 17:00:05 2583-45-82J20:00:05F ormatting of this note might be different from the original.Spoke with patient regarding insurance. 69851-7Yfddztwee encounter WhgiEZ1288-47-86Q24:00:21Telephon e encounter NoteTXT1.2.840.269688.1.13.104.2. 7.2.244819|[id number] for patient mvkc84295-9CboeHLWXAIEWWDGQrjvlzn ed C-CDA narrative knpj59010193Owvrgds [address]TXTX[address] 108QGJWCDRXKNAVWLCIRJFDYU3584-24- 15T17:00:211.2.840.333188.1.72.3. 15|1.2.840.234212.1.13.104.2.7.2. [id number] Sawyer Kapadia [facility] 2023-07-31 15:54:18 9708-04-43D68:54:18F ormatting of this note might be different from the original.Copied from [facility] #[id number]. Topic: Customer Service - Missed Call from Provider>> July 31, 2023 3:53 PM Patient [employer]prietary [employer] wrote:Patient returning missed call from the clinic. Please try again. Thank you. 92614-2Ogxjyfejx encounter RhehLO7436-29-64N47:07:25Telephon e encounter NoteTXT1.2.840.107470.1.13.104.2. 7.2.608400|[id number] for patient vbvo33348-6JqnuGIUHAFQWXBEZahrktz ed C-CDA narrative [id number] Bekah [address]TXTX[address] 029MIGWLFDYGVNTLGURLPDRPN8987-17- 15T17:07:251.2.840.145125.1.72.3. 15|1.2.840.339266.1.13.104.2.7.2. [id number] [facility] 20:10:30 4605-46-49A25:10:30F ormatting of this note might be different from the original.Pt dc'd home ambulatory. Pt v/u of dc instructions, prescription use, and follow up. 15258-4Vsriaulqu department CfwyMT6530-14-54R53:11:01[facility] NoteTXT1.2.840.124786.1.13.104.2. 7.2.789541|[id number] for patient sbtp21863-3QcjfIZPONZGWGFQZejhkml ed C-CDA narrative sszr664896016Khjmvq D Roman RN[address]TXTX[address] 277AOJROOALYWDKCRAULEPLIV4234-33- 11T20:11:011.2.840.185116.1.72.3. 15|1.2.840.131585.1.13.104.2.7.2. 727879_[id number] Radha Frederick RN [facility] 2023-03-28 18:27:25 1856-75-99A82:27:25F ormatting of this note might be different from the original.Pt arrived via private car with c/o right knee pain that started yesterday when she was in bed; denies any in injury. 67060-4Ycueogbtz department Triage gfobNK0203-15-20Z52:30:59[facility] Triage noteTXT1.2.840.536822.1.13.104.2. 7.2.185882|[id number] for patient vzwl08218-7Miidycvnc department NoteLNNARRATIVEFormatted C-CDA narrative [id number] L Barker RN[address]TXTX[address] 072HWBVZHUKENBAPBTQYBGSDQ1279-14- 11T18:30:591.2.840.734661.1.72.3. 15|1.2.840.043174.1.13.104.2.7.2. 727879_[id number] Venessa De La Fuente RN [facility] 2023-03-18 21:01:23 8848-61-75M39:01:23F ormatting of this note might be different from the original.Pt given printed and verbal discharge instructions regarding flu BPrescriptions providedPt verbalized understanding of instructions, pt awake alert oriented, resp reg unlabored, skin w/d, color appropriate for race, moves all ext well,pt encouraged to follow up with pcpAdvised to seek medical attention for new/prolonged/worsening of symptomsNo adverse reaction to meds given in ER noted upon dischargeAwake, alert oriented, resp reg unlabored, skin w/d, pt leaving amb with steady gait, in no apparent distress 27447-2Nxssronad department GbxaHD3606-50-68W58:01:47Emergenc y department NoteTXT1.2.840.220495.1.13.104.2. 7.2.086466|[id number] for patient ymnq66530-3FbprAPRVTTJHHYHExxrqar ed C-CDA narrative fqcm812194115Mghtnbn A Diaz RN[address]GalvestonTXTX[address] 067IJFRITFXHSDSTTRORUPGHC7953-91- 01T21:01:471.2.840.493453.1.72.3. 15|1.2.840.303688.1.13.104.2.7.2. 727879_[id number] Mallory Tabares RN [facility] 2023-03-18 19:35:36 9682-58-20G07:35:36F ormatting of this note might be different from the original.Patient ambulatory to ED c/o fever, body aches, and chills that started yesterday. Patient was tested for Covid at work today and states the test came back negative. Last medication was Robitussin around two today. 96857-0Gfxguditt department Triage yjyjIF6455-21-84I95:37:41[facility] Triage noteTXT1.2.840.936557.1.13.104.2. 7.2.128493|[id number] for patient jfrr40137-6Jjnopyewa department NoteLNNARRATIVEFormatted C-CDA narrative gdhz255065590Dwdfws-Uazlu McInnis RN[address] ZmchKmzflswozKvohfdoyoGIGV9707221 308WGBDBOWBHGJSMGIUEWWWZT3487-69- 01T19:37:411.2.840.940289.1.72.3. 15|1.2.840.202340.1.13.104.2.7.2. 727879_[id number] Janae Serra RN [facility] 2022-11-28 09:59:32 3774-16-05X18:59:32F ormatting of this note might be different from the original.Pt given printed and verbal discharge instructions regarding abd pain, encouraged hydration,Prescriptions provided.Discussed ibuprofen and to take with food to avoid GI distress, alternate with Tylenol to help with pain and/or fever.Discussed medication side affects and to avoid driving/operating machinery/or engaging in activities requiring alertness while taking.Pt verbalized understanding of instructions,pt encouraged to follow up with pcp and or specialist.Advised to seek medical attention for new/prolonged/worsening of symptoms,No adverse reaction to meds given in ER noted upon dischargePIV d'cd, dressing to site, catheter in tact.Awake, alert oriented, resp reg unlabored, skin w/d, pt leaving in no apparent distress, 24689-4Psudlfrfg department YlavYQ2278-48-64N24:59:49[facility] NoteTXT1.2.840.939640.1.13.104.2. 7.2.467071|[id number] for patient xovf85686-7EzrtUJ236041787Aewuf M Fantasma RNUT[address] StreetTXTX[address] 110UOLAKEHJOMKVUXXRGRIIBD5111-81- 13T09:59:491.2.840.992879.1.72.3. 15|1.2.840.260614.1.13.104.2.7.2. [id number] Shirlene Diane Fantasma RN [facility] 2022-11-28 06:35:59 0043-05-02S82:35:59F ormatting of this note might be different from the original.Upper abdominal pain radiating to back, seen here Saturday, pain hasn't gotten better. Pt stated she is constipated, vomiting. Pt diagnosed with gall stones on Saturday. 48343-6Tnhfvpujc department Triage wzaoRC6570-84-07P61:37:45[facility] Triage noteTXT1.2.840.284044.1.13.104.2. 7.2.672345|[id number] for patient jmbi58631-1Hsytuhasi department [id number] A. Campbell RNUT[address]TXTX[address]77 696IHOBQJIMMRQMBDDMSVJJXX5118-29- 13T06:37:451.2.840.758591.1.72.3. 15|1.2.840.298394.1.13.104.2.7.2. [id number] Monica Jiang RN [facility] 2022-11-28 06:24:00 9494-09-06S90:24:00F ormatting of this note is different from the original.[facility] Emergency Department NotePatient Name: Aruna Edwards AddisonDate of : 1990 32 year old femaleTreatment Room: TX6/LB6Xsnkftm Record Number: [id number] Care Physician: Kaya EastPatient Escorted by: Family [5]Mode of Arrival: Personal means [1]EMS Treatment Prior to ED Arrival:TOTER treatment: None Travel and Exposure Screening:SymptomsDoes patient have any of these symptoms?: (not recorded)Exposure ScreeningHas patient had contact with someone with a communicable disease in the last month?: (not recorded)Diseases exposed to:: (not recorded)Is Patient ?: (not recorded)Exposure Date: (not recorded)Chief Complaint:Chief Complaint Patient presents with Abdominal Pain History of Present Illness:[id number] AAF with h/o gallstone and eczema presents today with epigastric pain and vomiting, inability to tolerate po. She states she was seen just a few days ago for same and told it was gallstones, but not given any medications for home and she continues to vomit at home and does not feel well. She admits to marijuana use but none recently. Past Medical History/Immunizations:Past Medical History: Diagnosis Date Cholelithiasis Marijuana use STD (sexually transmitted disease) +ct and +gc and was treated 2011 Tetanus received in last 5 years: Unknown Allergies:No Known AllergiesPast Social History:Tobacco Use Some Days; Types: Cigars since 2011 Smokeless Tobacco: Never used smokeless tobacco. Comments: 1-2 ciggs a week Vaping Use Never used Alcohol Use Yes; 1.0 standard drink of alcohol per week; 1 Glasses of wine. Comments: occasional drinker of wine Drug Use No. Sexual Activity Sexually active; Partners: Male; Control/Protection: None, Injection. Comments: Last intercourse: 04/25/2019 Past Surgical History:Past Surgical History: Procedure Laterality Date SECTION c/section on 01/22/2011 at [facility] SECTION N/A 10/01/2017 Surgeon: Jeremy Glover MD; Location: [facility] OR Location Review of Systems: Review of Systems Constitutional: Negative for activity change, diaphoresis, fatigue, fever and weight gain. HENT: Negative for congestion, ear pain, rhinorrhea, sore throat, tinnitus and trouble swallowing. Eyes: Negative for discharge and visual disturbance. Respiratory: Negative for cough and chest tightness. Breasts: Negative for pain. Cardiovascular: Negative for chest pain and palpitations. Gastrointestinal: Positive for abdominal pain, nausea and vomiting. Genitourinary: Negative for dysuria, hematuria and difficulty urinating. Musculoskeletal: Negative for joint swelling. Skin: Negative for rash and wound. Neurological: Negative for dizziness and headaches. Psychiatric/Behavioral: Negative for agitation and confusion. The patient is not nervous/anxious. Hematological: Does not bruise/bleed easily. Endocrine: Negative for weight gain. Physical Exam: ED Triage Vitals [11/28/22 0637] Weight 91.2 kg (201 lb) Actual or estimated Estimated by patient/family report Height 1.499 m (4' 11") BP 114/89 Pulse 65 Resp 20 Temp 37.3 ?C (99.1 ?F) Temp source Oral SpO2 100 % Measured on Room air Physical ExamVitals reviewed. Constitutional: Appearance: She is well-developed. She is obese. HENT: Head: Normocephalic and atraumatic. Eyes: Conjunctiva/sclera: Conjunctivae normal. Cardiovascular: Rate and Rhythm: Normal rate and regular rhythm. Heart sounds: Normal heart sounds. No murmur heard.Pulmonary: Effort: Pulmonary effort is normal. Breath sounds: Normal breath sounds. No stridor. Abdominal: General: Bowel sounds are normal. Palpations: Abdomen is soft. Tenderness: There is no abdominal tenderness. Musculoskeletal: General: Normal range of motion. Cervical back: Neck supple. Skin: General: Skin is warm and dry. Capillary Refill: Capillary refill takes less than 2 seconds. Neurological: Mental Status: She is alert and oriented to person, place, and time. Cranial Nerves: No cranial nerve deficit. Psychiatric: Behavior: Behavior normal. Radiology:No orders to display Lab Results:Lab Results CBC WITH DIFF - Abnormal Result Value Ref Range WBC 7.17 4.30 - 11.10 10*3/?L RBC 4.70 3.93 - 5.25 10*6/?L HGB 11.9 11.6 - 15.0 g/dL HCT 37.5 35.7 - 45.2 % MCV 79.8 (*) 80.6 - 95.5 fL MCH 25.3 (*) 25.9 - 32.8 pg MCHC 31.7 31.6 - 35.1 g/dL RDW-SD 39.8 39.0 - 49.9 fL RDW-CV 13.8 12.0 - 15.5 % PLT 416 (*) 166 - 358 10*3/?L MPV 10.0 9.5 - 12.9 fL NRBC/100 WBC 0.0 0.0 - 10.0 /100 WBCs NRBC x10^3 <0.01 10*3/?L GRAN MAT (NEUT) % 47.5 % IMM GRAN % 0.30 % LYMPH % 45.0 % MONO % 5.7 % EOS % 1.1 % BASO % 0.4 % GRAN MAT x10^3(ANC) 3.40 1.88 - 7.09 10*3/uL IMM GRAN x10^3 <0.03 0.00 - 0.06 10*3/uL LYMPH x10^3 3.23 1.32 - 3.29 10*3/uL MONO x10^3 0.41 0.33 - 0.92 10*3/uL EOS x10^3 0.08 0.03 - 0.39 10*3/uL BASO x10^3 0.03 0.01 - 0.07 10*3/uL COMP. METABOLIC PANEL (28212) - Abnormal NA 140 135 - 145 mmol/L K 3.8 3.5 - 5.0 mmol/L CL 110 (*) 98 - 108 mmol/L CO2 TOTAL 25 23 - 31 mmol/L AGAP 5 2 - 16 BUN 9 7 - 23 mg/dL GLUCOSE 98 70 - 110 mg/dL CREATININE 0.55 0.50 - 1.04 mg/dL TOTAL BILI 0.3 0.1 - 1.1 mg/dL CALCIUM 8.7 8.6 - 10.6 mg/dL T PROTEIN 7.3 6.3 - 8.2 g/dL ALBUMIN 4.1 3.5 - 5.0 g/dL ALK PHOS 60 34 - 122 U/L ALTv 22 5 - 35 U/L AST(SGOT) 86 (*) 13 - 40 U/L eGFR 128.9 mL/min/1.73m2 URINALYSIS - Abnormal APPEARANCE Hazy (*) Clear COLOR Yellow Yellow PH 6.0 4.8 - 8.0 SP GRAVITY 1.027 1.003 - 1.030 GLU U QUAL Normal Normal BLOOD 1+ (*) Negative KETONES Negative Negative PROTEIN Negative Negative UROBILIN 4.0 mg/dL (*) Normal BILIRUBIN Negative Negative NITRITE Negative Negative LEUK CRUZ Negative Negative RBC/HPF 30 (*) 0 - 3 HPF WBC/HPF 0 0 - 5 HPF BACTERIA Negative Negative MUCOUS Marked (*) Negative LPF SQ EPITH 2 HPF URINE DRUG (IMMUNOASSAY) - COMPREHENSIVE DRUG SCREEN - Abnormal AMPHET Negative Negative KRYS U Negative Negative BENZO U Negative Negative Cocaine Metabolite Negative Negative METHADONE Negative Negative OPIATES Negative Negative PCP Negative Negative THC Presumptive Positive (*) Negative LIPASE - Normal LIPASE 90 0 - 220 U/L EKG:If EKG completed, see Procedure Note. Orders and Treatments:Orders Placed This Encounter Procedures CBC WITH DIFF COMP. METABOLIC PANEL (11885) URINALYSIS LIPASE URINE DRUG (IMMUNOASSAY) - COMPREHENSIVE DRUG SCREEN Orders Placed This Encounter Medications ondansetron (ZOFRAN (PF)) injection 4 mg haloperidol lactate (HALDOL) injection 2.5 mg maalox:diphenhydrAMINE:lidocaine 2 % viscous 1:1:1 (FIRST-MOUTHWASH BLM) oral suspension 15 mL OLANZapine ZYDIS 5 mg disintegrating tablet First Provider Eval:ED Events Date/Time Event User Comments 11/28/22 0743 Medical Screening Begins MAKENZIE FLANNERY MD -- 11/28/22 0743 First Provider Evaluation MAKENZIE FLANNERY MD -- No notes of EC Admission Criteria type on file.ED COURSEDiagnosis/Impression as of 11/28/22 0946 Pain of upper abdomen Eczema, unspecified type Vomiting, unspecified vomiting type, unspecified whether nausea present Marijuana use Calculus of gallbladder without cholecystitis without obstruction Procedures: ProceduresMDM:Medical Decision MakingConsidered PUD, gastritis, marijuana hyperemesis, cholecystitis, cholelithaisisLabs from previous visit review, CT also unremarkableGiven haldol with significant relief. GI cocktail also helped and tolerated poLabs unremarkableDischarged home with recommendation to STOP marijuana, surgical referral for elective gallstone removal and zydis script provided.Problems Addressed:Calculus of gallbladder without cholecystitis without obstruction: chronic illness or injury with exacerbation, progression, or side effects of treatmentEczema, unspecified type: chronic illness or injuryMarijuana use: chronic illness or injuryPain of upper abdomen: complicated acute illness or injuryVomiting, unspecified vomiting type, unspecified whether nausea present: complicated acute illness or injuryAmount and/or Complexity of Data ReviewedExternal Data Reviewed: labs, radiology and notes.Labs: ordered.RiskPrescription drug management. Flowsheet Documentation: Scoring Tools: No data recorded Disposition/Condition:ED Disposition ED Disposition Disch - Home Condition Stable Comment -- Discharge Medications:Patient's Medications START taking these medications OLANZAPINE ZYDIS 5 MG DISINTEGRATING TABLET Take 1 tablet by mouth every 8 (eight) hours as needed for Nausea and Vomiting (N/V). CONTINUE taking these medications which have NOT CHANGED CALCIUM/MAGNESIUM/ZINC (OKAHKMS-HACOVGHRZS-BBUZ) 333-133-5 MG TAB Take 1 Each by mouth daily. START taking Modified Medications as Prescribed No medications on file STOP taking these medications No medications on file Follow-up:Contact information for follow-up [facility] [place] Specialty: [employer] W[employer] Relationship: PCP - General [address] [place] [address] [facility] [id number] Electronically signed by: Makenzie Flannery DO11/28/22 0946 [id number] Emergency department [id number]:46:37Physicia n Emergency department [id number]. [id number] for patient jwyj76072-8Cngnylnab department [address] Wc[id number] 415KCRPMCABYMRUAZLENXVHTQ5640-79- 13T09:46:371.2.840.331319.1.72.3. 15|1.2.840.827830.1.13.104.2.7.2. [id number] [facility] 2022-11-26 16:39:46 [id number]:39:46F ormatting of this note might be different from the original.Written/verbal d/c instructions, out of er no distress 70991-3Bonooofca department PrguDX9116-84-72J97:40:09[facility] [id number]. [id number] for patient [id number] M. Barton RN[address]vestonGalvestonTXTX[address] 7[id number]- 11T16:40:091.2.840.288870.1.72.3. 15|1.2.840.427635.1.13.104.2.7.2. [id number] Malina Li RN [facility] 2022-11-26 12:44:21 [id number]:44:21F ormatting of this note might be different from the original.Patient to ED for low back pain radiating to abdomen. Pain started this morning at 3 am. Heating pad helps with pain to mid thoracic back pain. Denies n/v. Also has skin irritation to forehead, face, and arms. 13509-1Ujorbilyr department Triage szyzOV0219-09-66T97:45:49Emechi [facility] department Triage [id number]. 7.2.205393|[id number] for patient mlrg60449-9Umazauato department [id number] D Wierzbicki RNUT[address] StreetTXTX[address] [id number]- 11T12:45:491.2.840.903076.1.72.3. 15|1.2.840.672957.1.13.104.2.7.2. [id number] Adrián Leslie RN [facility]
[2023-09-09] MEDS ORDERED: NA CHLORIDE 0.9% 1,000 ML ONE (16:08)
[2023-09-09] MEDS ORDERED: KETOROLAC 30 MG/ML INJ ONE (16:08)
[2023-09-09] MEDS ORDERED: ONDANSETRON 4 MG/2 ML VIAL ONE (16:08)
[2023-09-09 16:10] LABS: Specific Gravity 1.013 (1.005-1.030); Urine Bilirubin NEGATIVE (Negative); Urine Blood Negative (Negative); Urine Clarity Clear (Clear); Urine Color Colorless (Yellow); Urine Glucose NEGATIVE (Negative); Urine Ketones NEGATIVE (Negative); Urine Microscopic Reflex YN NO UMIC; Urine Nitrite NEGATIVE (Negative); Urine Protein NEGATIVE (Negative); Urine Urobilinogen Normal (Normal)
[2023-09-09 16:14] LABS: Specific Gravity 1.013 (1.005-1.030)
[2023-09-09 16:34] LABS: Albumin 3.9 g/dL (3.4-5.0); Albumin/Globulin Ratio 0.9 (1.1-1.8); Anion Gap 6.3 mEq/L (5.0-15.0); Bilirubin Total 0.9 mg/dL (0.2-1.0); Globulin 4.2 g/dL (2.3-3.5); Potassium 5.3 mEq/L (3.5-5.1); Protein, Total 8.1 g/dL (6.4-8.2)
[2023-09-09 17:06] LABS: Absolute Lymphocytes (CBC) 3.5 K/uL (0.7-4.9); Absolute Monocytes 0.4 K/uL (0.1-1.3); Basophils % 0.4 % (0-1.3); Eosinophils % 0.6 % (0-4.4); Hematocrit 36.1 % (36.0-45.0); Hemoglobin 11.5 g/dL (12.0-15.0); Lymphocytes % 50.1 % (15.3-44.8); MCH 25.2 pg (27.0-35.0); MCHC 31.8 g/dL (32.0-36.0); MCV 79.2 fL (80-100); MPV 7.3 fL (7.6-11.3); Monocytes % 6.1 % (3.3-12.3); Neutrophils % 42.8 % (41.7-73.7); Platelets 442 thou/uL (152-406); RBC Red Blood Cell Count 4.56 M/uL (3.86-4.86); Red Cell Distribution Width 14.2 % (12.1-15.2)
--- NOTE | 2023-09-09 17:59 | RAD REPORT ---
EXAM DESCRIPTION: CT - Abdomen Pelvis W Contrast - 09/09/2023 5:39 pm CLINICAL HISTORY: Abdominal pain COMPARISON: none. TECHNIQUE: Computed axial tomography of the abdomen pelvis was obtained. 100 cc Isovue-300 was admin istered intravenously. Oral contrast was not requested which limits evaluation of bowel and appendix All CT scans are performed using dose optimization technique as appropriate and may include automated exposure control or mA/KV adjustment according to patient size. FINDINGS: The liver, spleen, pancreas, adrenal and kidneys appear unremarkable. There is no evidence of diverticulitis. Normal appendix. No adnexal mass. Gallstones IMPRESSION: Cholelithiasis
--- NOTE | 2023-09-09 18:10 | ER ---
Nurse's Notes [facility] Name: Stanislaw Varner Age: 33 yrs Sex: Female : 1990 Arrival Date: 09/09/2023 Time: 15:04 Bed 12 Private MD: Diagnosis: Other cholelithiasis without obstruction Presentation: 09/08 15:15 Chief complaint: Upper abdominal pain x 2 days. Coronavirus screen: At this time, the hb client does not indicate any symptoms associated with coronavirus-19. Ebola Screen: No symptoms or risks identified at this time. Initial Sepsis Screen: Does the patient meet any 2 criteria? No. Patient's initial sepsis screen is negative. Does the patient have a suspected source of infection? No. Patient's initial sepsis screen is negative. Risk Assessment: Do you want to hurt yourself or someone else? Patient reports no desire to harm self or others. Onset of symptoms was September 08, 2023. 15:15 Method Of Arrival: Ambulatory 15:15 Acuity: MITCH 3 hb Triage Assessment: 16:49 General: Appears in no apparent distress. uncomfortable, Behavior is calm, cooperative. hb Pain: Pain currently is 8 out of 10 on a pain scale. Neuro: Level of Consciousness is awake, alert, obeys commands, Oriented to person, place, time, situation. Cardiovascular: Patient's skin is warm and dry. Respiratory: Respiratory effort is even, unlabored, Respiratory pattern is regular, symmetrical. GI: Reports upper abdominal pain. 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 - Infectious Disease History:: Denies. - Social history:: Smoking status: Patient denies any tobacco usage or history of. - Family history:: not pertinent. Screenin:25 [facility] ED Fall Risk Assessment (Adult) History of falling in the last 3 months, cm10 including since admission No falls in past 3 months (0 pts) Confusion or Disorientation No (0 pts) Intoxicated or Sedated No (0 pts) Impaired Gait No (0 pts) Mobility Assist Device Used No (0 pt) Altered Elimination No (0 pt) Score/Fall Risk Level 0 - 2 = Low Risk Oriented to surroundings, Maintained a safe environment, Hourly rounding (assess needs \T\ fall precautionary measures) done. Abuse screen: Denies threats or abuse. Denies injuries from another. Nutritional screening: No deficits noted. Tuberculosis screening: No symptoms or risk factors identified. Assessment: 18:24 Reassessment: Patient appears in no apparent distress at this time. No changes from cm10 previously documented assessment. Patient and/or family updated on plan of care and expected duration. Pain level reassessed. Patient is alert, oriented x 3, equal unlabored respirations, skin warm/dry/pink. General: Appears in no apparent distress. comfortable, Behavior is calm, cooperative. Neuro: No deficits noted. Level of Consciousness is awake, alert, obeys commands, Oriented to person, place, time, situation, Appropriate for age. Respiratory: No deficits noted. Airway is patent Respiratory effort is even, unlabored, Respiratory pattern is regular, symmetrical. EENT: No deficits noted. Derm: No deficits noted. Skin is intact, Skin is pink, warm \T\ dry. 18:45 GI: cm10 Vital Signs: 15:15 BP 128 / 83; Pulse 70; Resp 16; Temp 98.8(O); Pulse Ox 100% on R/A; Weight 81.65 kg; hb Height 4 ft. 11 in. ; Pain 8/10; 18:24 BP 123 / 63; Pulse 71; Resp 16; Pulse Ox 100% ; cm10 15:15 Body Mass Index 36.36 (81.65 kg, 149.86 cm) hb 15:15 Pain Scale: Adult hb ED Course: 15:05 Patient arrived in ED. rg4 15:21 Prateek Deleon MD is Attending Physician. rt 16:02 Test, Urine Sent. kb3 16:02 Urinalysis w/ reflexes Sent. kb3 16:09 Initial lab(s) drawn, by me, sent to lab. Missed attempt(s): 24 gauge in right forearm. bc6 16:15 Missed attempt(s): 22 gauge in left forearm. Bleeding controlled, band aid applied, hb catheter tip intact. 16:32 Missed attempt(s): 22 gauge in left forearm. Bleeding controlled, band aid applied, hb catheter tip intact. 16:48 Triage completed. hb 16:49 Arm band placed on. hb 16:58 CBC with Diff Sent. cm10 16:58 Accessed ,peripheral vein via ultrasound, utilizing static ultrasound technique Blood cm10 collected. Clean \T\ dry. Dressing intact. Good blood return. Flushes easily. 22g Right AC. Missed attempt(s): 20 gauge in right forearm. Bleeding controlled, band aid applied, catheter tip intact. 17:00 Patient has correct armband on for positive identification. Bed in low position. Call cm10 light in reach. 17:00 Provided Education on: ER PROCESS AND PROCEDURES. Pulse ox on. NIBP on. cm10 17:41 CT Abd/Pelvis - IV Contrast Only In Process Unspecified. EDMS 18:10 Barrington Burns MD is Referral Physician. rt 18:26 No provider procedures requiring assistance completed. IV discontinued, intact, cm10 bleeding controlled, No redness/swelling at site. Pressure dressing applied. Administered Medications: 16:58 Drug: NS 0.9% IV 1000 ml IV at 1 bolus Per protocol; 1000 mL bolus Route: IV; Rate: 1 cm10 bolus; Site: right antecubital; 18:44 Follow up: Response: No adverse reaction; IV Status: Completed infusion; IV Intake: cm10 550ml 16:58 Drug: TORadol - Ketorolac IVP 15 mg IVP once Route: IVP; Site: right antecubital; cm10 18:24 Follow up: Response: No adverse reaction cm10 16:58 Drug: Ondansetron IVP 4 mg IVP once; over 2 minutes Route: IVP; Site: right antecubital;cm10 18:24 Follow up: Response: No adverse reaction cm10 18:24 Drug: morphine IVP or IV 4 mg IVP once over 4 mins Route: IVP; Infused Over: 4 mins; cm10 Site: right antecubital; 18:43 Follow up: Response: No adverse reaction cm10 Medication: 18:45 VIS not applicable for this client. cm10 Intake: 18:44 IV: 550ml; Total: 550ml. cm10 Outcome: 18:10 Discharge ordered by . rt 18:44 Discharged to home via wheelchair, with family, cm10 18:44 Condition: good 18:44 Discharge instructions given to patient, Instructed on discharge instructions, follow up and referral plans. medication usage, Demonstrated understanding of instructions, follow-up care, medications, Prescriptions given X 2, 18:45 Patient left the ED. cm10 Signatures: Dispatcher [employer] EDMS Mare Reynoso, EMETERIO RN hb Nikkie Shaver rg4 Tanya Priest RN RN kb3 Prateek Deleon MD MD rt Janet Morse bc6 Yenny Burns RN RN cm10 Corrections: (The following items were deleted from the chart) 16:49 16:48 Allergies: Aspirin; hb hb
--- NOTE | 2023-09-09 18:10 | EDPHYS ---
Physician Documentation [facility] Name: Stanislaw Varner Age: 33 yrs Sex: Female : 1990 Arrival Date: 09/09/2023 Time: 15:04 Bed 12 Private MD: ED Physician Prateek Deleon HPI: 09/08 17:47 This 33 yrs old Black Female presents to ER via Ambulatory with complaints of Abdominal rt Pain, Back Pain, Flank Pain. 17:48 Patient presents to the ED with right upper quadrant pain rating to the right flank rt starting today. Reports nausea, vomiting. Denies other acute complaints at this time, symptoms are moderate in severity, no other aggravating or alleviating factors.. 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 - Infectious Disease History:: Denies. - Social history:: Smoking status: Patient denies any tobacco usage or history of. - Family history:: not pertinent. ROS: 17:48 Constitutional: Negative for fever, chills, and weight loss, Cardiovascular: Negative rt for chest pain, palpitations, and edema, Respiratory: Negative for shortness of breath, cough, wheezing, and pleuritic chest pain, MS/Extremity: Negative for injury and deformity, Skin: Negative for injury, rash, and discoloration, Neuro: Negative for headache, weakness, numbness, tingling, and seizure, 17:48 Abdomen/GI: Positive for abdominal pain, nausea, 17:48 Back: Positive for pain at rest, Negative for injury or acute deformity, Exam: 17:48 Constitutional: This is a well developed, well nourished patient who is awake, alert, rt and in no acute distress. Head/Face: Normocephalic, atraumatic. Chest/axilla: Normal chest wall appearance and motion. Nontender with no deformity. No lesions are appreciated. Cardiovascular: Regular rate and rhythm with a normal S1 and S2. No gallops, murmurs, or rubs. Normal PMI, no JVD. No pulse deficits. Respiratory: Lungs have equal breath sounds bilaterally, clear to auscultation and percussion. No rales, rhonchi or wheezes noted. No increased work of breathing, no retractions or nasal flaring. Skin: Warm, dry with normal turgor. Normal color with no rashes, no lesions, and no evidence of cellulitis. MS/ Extremity: Pulses equal, no cyanosis. Neurovascular intact. Full, normal range of motion. 17:48 Abdomen/GI: Tenderness to the right upper quadrant without guarding, rebound, distention, 17:48 Back: No midline tenderness, Vital Signs: 15:15 BP 128 / 83; Pulse 70; Resp 16; Temp 98.8(O); Pulse Ox 100% on R/A; Weight 81.65 kg; hb Height 4 ft. 11 in. ; Pain 8/10; 18:24 BP 123 / 63; Pulse 71; Resp 16; Pulse Ox 100% ; cm10 15:15 Body Mass Index 36.36 (81.65 kg, 149.86 cm) hb 15:15 Pain Scale: Adult hb MDM: 15:39 Patient medically screened. rt 18:12 Differential diagnosis: Gallstones, cholecystitis, renal colic. Data reviewed: vital rt signs, nurses notes, lab test result(s), radiologic studies. I considered the following discharge prescriptions or medication management in the emergency department Medications were administered in the Emergency Department. See MAR. Independent interpretation of the following test(s) in the Emergency Department CT Scan: My interpretation is No bowel obstruction syndrome interpretation of CT scan images. Counseling: I had a detailed discussion with the patient and/or guardian regarding the historical points, exam findings, and any diagnostic results supporting the discharge/admit diagnosis, lab results, radiology results, the need for outpatient follow up, to return to the emergency department if symptoms worsen or persist or if there are any questions or concerns that arise at home. Response to treatment: the patient's symptoms have mildly improved after treatment. 09/08 15:52 Order name: CBC with Diff; Complete Time: 17:12 rt 09/08 15:52 Order name: CMP; Complete Time: 17:12 rt 09/08 15:52 Order name: Lipase; Complete Time: 17:12 rt 09/08 15:52 Order name: Test, Urine; Complete Time: 17:12 rt 09/08 15:52 Order name: Urinalysis w/ reflexes; Complete Time: 17:12 rt 09/08 15:52 Order name: CT Abd/Pelvis - IV Contrast Only; Complete Time: 18:00 rt 09/08 15:52 Order name: IV Saline Lock; Complete Time: 16:58 rt 09/08 15:52 Order name: Labs collected and sent; Complete Time: 16:58 rt 09/08 16:13 Order name: Labs - recollect needed: recollect lavender top; Complete Time: 16:58 bd Administered Medications: 16:58 Drug: NS 0.9% IV 1000 ml IV at 1 bolus Per protocol; 1000 mL bolus Route: IV; Rate: 1 cm10 bolus; Site: right antecubital; 18:44 Follow up: Response: No adverse reaction; IV Status: Completed infusion; IV Intake: cm10 550ml 16:58 Drug: TORadol - Ketorolac IVP 15 mg IVP once Route: IVP; Site: right antecubital; cm10 18:24 Follow up: Response: No adverse reaction cm10 16:58 Drug: Ondansetron IVP 4 mg IVP once; over 2 minutes Route: IVP; Site: right antecubital;cm10 18:24 Follow up: Response: No adverse reaction cm10 18:24 Drug: morphine IVP or IV 4 mg IVP once over 4 mins Route: IVP; Infused Over: 4 mins; cm10 Site: right antecubital; 18:43 Follow up: Response: No adverse reaction cm10 Disposition Summary: 09/09/23 18:10 Discharge Ordered Notes: Location: Home rt Problem: new rt Symptoms: have improved rt Condition: Stable rt Diagnosis - Other cholelithiasis without obstruction rt Followup: rt - With: Barrington Burns MD - When: 2 - 3 days - Reason: Discharge Instructions: - Discharge Summary Sheet rt - Cholelithiasis rt Forms: - Medication Reconciliation Form rt - Antibiotic Education rt - Prescription Opioid Use rt - Patient Portal Instructions rt - Leadership Thank You Letter rt - Work release form cm10 Prescriptions: - acetaminophen-codeine 300-30 mg Oral tablet - take 1 tablet ORAL route 4 times per day as needed for pain; 15 tablet; rt Refills: 0, Product Selection Permitted - ondansetron 4 mg Oral Tablet,disintegrating - take 1 tablet ORAL route every 6 hours; 15 tablet; Refills: 0, Product rt Selection Permitted Signatures: Dispatcher [employer] EDMS Cece Minaya Heather, RN RN hb Prateek Deleon MD MD rt Yenny Burns RN RN cm10 Corrections: (The following items were deleted from the chart) 15: 15:52 CBC+H.LAB.BRZ ordered. EDMS EDMS 15: 15:52 COMPREHENSIVE METABOLIC PANEL+C.LAB.BRZ ordered. EDMS EDMS 15: 15:52 LIPASE+C.LAB.BRZ ordered. EDMS EDMS 15 15:52 Test, Urine+UC.LAB.BRZ ordered. EDMS EDMS 15:53 15:52 Urinalysis+U.LAB.BRZ ordered. EDMS EDMS 16:49 16:48 Allergies: Aspirin; hb hb
[2023-09-09] MEDS ORDERED: MORPHINE 4 MG/ML SYR ONE (18:19)
[2023-09-10 02:20] VITALS: BP 123/63; TEMP 98.8; O2SAT 100
== END 2023-09-09 18:45 | disposition home or self-care (01) ==
LOC: ER 15:04
DX: K80.80 Other cholelithiasis without obstruction (principal)
CPT/HCPCS: 85025; 36415; 81025; 81003; 83690; 80053; 74177; Q9967; J2405; J7030